=== PATIENT | female | born 1945 | race Caucasian/White ===

== ENCOUNTER → 2021-11-29 06:20 | Outpatient (ROUT) | payer OTHER, MEDICAID, SELFPAY ==
[2021-11-29 08:40] LABS: Add Manual Diff / Slide Review NO; Basophils Absolute Auto 0 /uL (0-100); Basophils Percent Auto 0.4 % (0-2); Eosinophils Absolute Auto 100 /uL (0-450); Eosinophils Percent Auto 1.5 % (2-4); Hemoglobin 11.5 g/dL (12.0-16.0); Lymphocytes Absolute Auto 1800 /uL (1100-4500); Mean Corpuscular HGB Conc 34.7 % (30-36); Mean Corpuscular Volume 89.5 fL (80-100); Monocytes Absolute Auto 500 /uL (0-900); Monocytes Percent Auto 6.9 % (3-14); Neutrophils Absolute Auto 4700 /uL (1500-7000); Neutrophils Percent Auto 66.2 % (50-75); Platelet Count 240 X10^3/uL (150-400); Red Blood Cell Count 3.69 X10^6/uL (4.0-5.2); Red Cell Distribution Width 14.4 % (11.6-14.8); White Blood Cell Count 7.1 X10^3/uL (4.5-11.0)
[2021-11-29 09:21] LABS: Alanine Aminotransferase 13 IU/L (<35); Albumin 3.8 g/dL (3.5-5.0); Albumin Globulin Ratio 1.2 (1.0-2.8); Alkaline Phosphatase 114 U/L (38-126); Aspartate Aminotransferase 18 IU/L (14-36); BUN Creatinine Ratio 17.6 (6-22); Bilirubin Total 0.3 mg/dL (0.2-1.3); Blood Urea Nitrogen 18 mg/dL (7-17); Calcium 9.2 mg/dL (8.4-10.2); Carbon Dioxide 31 mmol/L (22-32); Chloride 98 mmol/L (98-107); Estimated Glomerular Filt Rate 57 mL/min (>60); Globulin 3.3 g/dL (1.7-4.1); Glucose 82 mg/dL (80-110); HEMOLYSIS < 15 (0-50); Potassium 3.3 mmol/L (3.4-5.1); Sodium 138 mmol/L (137-145); Total Protein 7.1 g/dL (6.3-8.2)
[2021-11-29 09:41] LABS: Thyroid Stimulating Hormone 3.28 uIU/mL (0.47-4.68)
== END ==
PROVIDERS: Visit Provider Nurse Practitioner Family
DX: D64.9 Anemia, unspecified (principal)
CPT/HCPCS: 36415; 80053; 84443; 85025

== ENCOUNTER → 2022-01-10 06:09 | Outpatient (ROUT) | payer OTHER, MEDICAID, SELFPAY ==
[2022-01-10 08:07] LABS: BUN Creatinine Ratio 22.2 (6-22); Blood Urea Nitrogen 22 mg/dL (7-17); Calcium 8.8 mg/dL (8.4-10.2); Carbon Dioxide 31 mmol/L (22-32); Chloride 101 mmol/L (98-107); Estimated Glomerular Filt Rate 59 mL/min (>60); Glucose 92 mg/dL (80-110); HEMOLYSIS < 15 (0-50); Potassium 3.2 mmol/L (3.4-5.1); Sodium 137 mmol/L (137-145)
== END ==
PROVIDERS: Visit Provider Nurse Practitioner Family
DX: N18.9 Chronic kidney disease, unspecified (principal); E83.51 Hypocalcemia
CPT/HCPCS: 36415; 80048

== ENCOUNTER → 2022-01-17 06:13 | Outpatient (ROUT) | payer OTHER, MEDICAID, SELFPAY ==
[2022-01-17 08:56] LABS: BUN Creatinine Ratio 18.1 (6-22); Blood Urea Nitrogen 17 mg/dL (7-17); Calcium 9.4 mg/dL (8.4-10.2); Carbon Dioxide 26 mmol/L (22-32); Chloride 106 mmol/L (98-107); Estimated Glomerular Filt Rate > 60 mL/min (>60); Glucose 87 mg/dL (80-110); HEMOLYSIS < 15 (0-50); Potassium 3.9 mmol/L (3.4-5.1); Sodium 141 mmol/L (137-145)
== END ==
PROVIDERS: Visit Provider Nurse Practitioner Family
DX: E87.1 Hypo-osmolality and hyponatremia (principal)
CPT/HCPCS: 36415; 80048

== ENCOUNTER → 2022-03-07 06:26 | Outpatient (ROUT) | payer OTHER, MEDICAID, SELFPAY ==
[2022-03-07 08:23] LABS: BUN Creatinine Ratio 15.5 (6-22); Blood Urea Nitrogen 17 mg/dL (7-17); Calcium 9.1 mg/dL (8.4-10.2); Carbon Dioxide 31 mmol/L (22-32); Chloride 100 mmol/L (98-107); Estimated Glomerular Filt Rate 51 mL/min (>60); Glucose 91 mg/dL (80-110); HEMOLYSIS < 15 (0-50); Potassium 3.7 mmol/L (3.4-5.1); Sodium 138 mmol/L (137-145)
== END ==
PROVIDERS: Visit Provider Nurse Practitioner Family
DX: R60.9 Edema, unspecified (principal); Z79.899 Other long term (current) drug therapy
CPT/HCPCS: 36415; 80048

== ENCOUNTER 2022-04-07 14:52 | Observation (INO) | payer OTHER, MEDICAID, SELFPAY ==
[2022-04-07] VITALS (16 sets, daily range): BP systolic 145–216; BP diastolic 58–95; PULSE 68–112; RESP 12–26; TEMP 36.2–36.6; O2SAT 94–99; BMI 38.6
--- NOTE | 2022-04-07 15:08 | DI.RAD.S_ITS ---
PROCEDURE: XR CHEST 1V INDICATIONS: chest pain TECHNIQUE: One view of the chest was acquired. COMPARISON: None. FINDINGS: Surgical changes and devices: Cervical spine fixation hardware is seen. Lungs and pleura: On this semiupright portable chest examination, no large pneumothorax or large pleural effusions are seen. No focal infiltrates are seen. Low lung volumes are noted. This causes a crowded appearance to the lung markings and limits evaluation. Mediastinum: Mediastinal contours appear normal. Heart size is normal. Bones and chest wall: No suspicious bony lesions. Age-appropriate bony degenerative changes are seen. Overlying soft tissues appear unremarkable. IMPRESSION: Limited portable chest examination, without a significant cardiopulmonary abnormality identified. Postoperative and degenerative changes are seen. Dictated by: Manoj Watson M.D. on 04/07/2022 at 14:35 Approved by: Manoj Watson M.D. on 04/07/2022 at 14:36
[2022-04-07 15:32] LABS: Add Manual Diff / Slide Review NO; Basophils Absolute Auto 100 /uL (0-100); Basophils Percent Auto 0.8 % (0-2); Eosinophils Absolute Auto 100 /uL (0-450); Eosinophils Percent Auto 1.3 % (2-4); Hematocrit 38.1 % (36-46); Hemoglobin 12.4 g/dL (12.0-16.0); Lymphocytes Absolute Auto 1800 /uL (1100-4500); Mean Corpuscular HGB Conc 32.7 % (30-36); Mean Corpuscular Hemoglobin 29.6 PG (26-34); Mean Corpuscular Volume 90.5 fL (80-100); Monocytes Absolute Auto 400 /uL (0-900); Monocytes Percent Auto 6.2 % (3-14); Neutrophils Absolute Auto 4700 /uL (1500-7000); Neutrophils Percent Auto 66.7 % (50-75); Platelet Count 289 X10^3/uL (150-400); Red Blood Cell Count 4.21 X10^6/uL (4.0-5.2); Red Cell Distribution Width 14.8 % (11.6-14.8)
[2022-04-07 15:39] LABS: Prothrombin Time 11.7 SECONDS (10.1-12.7)
[2022-04-07 15:42] LABS: PTT Partial Thromboplastin Tim 54 SECONDS (26-36)
[2022-04-07 15:47] LABS: Alanine Aminotransferase 21 IU/L (<35); Albumin 4.4 g/dL (3.5-5.0); Albumin Globulin Ratio 1.2 (1.0-2.8); Alkaline Phosphatase 155 U/L (38-126); Aspartate Aminotransferase 23 IU/L (14-36); BUN Creatinine Ratio 13.3 (6-22); Bilirubin Total 0.2 mg/dL (0.2-1.3); Blood Urea Nitrogen 16 mg/dL (7-17); COVID19 -Nasal RAPID Negative (Negative); Calcium 9.5 mg/dL (8.4-10.2); Carbon Dioxide 31 mmol/L (22-32); Chloride 102 mmol/L (98-107); Creatine Kinase 143 U/L (30-135); Estimated Glomerular Filt Rate 46 mL/min (>60); Globulin 3.8 g/dL (1.7-4.1); Glucose 103 mg/dL (80-110); Lipase 98 U/L (23-300); Magnesium 2.2 mg/dL (1.6-2.3); Potassium 3.9 mmol/L (3.4-5.1); Sodium 141 mmol/L (137-145); Total Protein 8.2 g/dL (6.3-8.2)
--- NOTE | 2022-04-07 15:59 | ED_ITS ---
HPI - Chest Pain <Rosalba Brown DO - Last Filed: 04/08/22 07:09> General Chief Complaint: Chest Pain Stated Complaint: Chest pain, high blood pressure x2 days Time Seen by Provider: 04/07/22 15:16 Source: patient Mode of arrival: Wheelchair Limitations: no limitations History of Present Illness HPI narrative: Patient is a 77-year-old female who resides at [facility] who has chronic ongoing back pain hypertension hypothyroid hyperlipidemia presenting today with chest discomfort. She says it started 2 days ago when she was walking in the grocery store. She felt it in the center of her chest as a dull ache radiating to her left arm which resolved with rest. Lasting for roughly 10-15 minutes she was short of breath with exertion at that time as well. Today she was in the bathroom she got up and went to go change her pants when she again had some chest discomfort radiating to the left. No shortness of breath today. No sweating no nausea or vomiting no numbness tingling or weakness. No cough. Related Data Home Medications Medication Instructions Recorded Confirmed amitriptyline 50 mg tablet 50 mg PO BEDTIME ##0 12/19/16 04/07/22 baclofen 10 mg tablet 10 mg PO BEDTIME muscle spasm ##0 12/19/16 04/07/22 acetaminophen 500 mg tablet 500 mg 3XD 04/07/22 04/07/22 ascorbic acid (vitamin C) 500 mg 500 mg PO DAILY 04/07/22 04/07/22 tablet (Vitamin C) atorvastatin 40 mg tablet 40 mg PO DAILY 04/07/22 04/07/22 [id number]-spbopuwzvdedp-afompgob 1 - 2 tab PO TID PRN headaches 04/07/22 04/07/22 50 mg-325 mg-40 mg tablet dicyclomine 10 mg capsule 10 mg PO TID GERD 04/07/22 04/07/22 docusate sodium 100 mg capsule 200 mg PO BID Constipation 04/07/22 04/07/22 furosemide 40 mg tablet 40 mg PO DAILY 04/07/22 04/07/22 levothyroxine 75 mcg tablet 75 mcg PO DAILY 04/07/22 04/07/22 lidocaine 4 % topical patch 1 patch topical DAILY 04/07/22 04/07/22 (Lidocaine Pain Relief) melatonin 5 mg tablet 5 mg PO BEDTIME PRN Insomnia 04/07/22 04/07/22 yemvyhov-oeb-jgujw acid 0.4 1 tab PO DAILY 04/07/22 04/07/22 mg-lycopene 300 mcg-lutein 250 mcg tablet (CertaVite Senior) pantoprazole 40 mg tablet,delayed 40 mg PO DAILY GERD 04/07/22 04/07/22 release polyethylene glycol 3350 17 17 g PO DAILY constipation 04/07/22 04/07/22 gram/dose oral powder (Gavilax) potassium chloride 20 mEq 20 meq PO DAILY 04/07/22 04/07/22 tablet,extended release(part/cryst) pregabalin 100 mg capsule 100 mg PO TID pain management 04/07/22 04/07/22 zonisamide 100 mg capsule 100 mg PO DAILY 04/07/22 04/07/22 Allergies Allergy/AdvReac Type Severity Reaction Status Date / Time Penicillins [PENICILLINS] Allergy Mild Unverified 06/19/17 12:48 prednisone [PREDNISONE] Allergy Mild Unverified 06/19/17 12:48 Review of Systems <Rosalba Brown DO - Last Filed: 04/08/22 07:09> Review of Systems ROS Unobtainable: All systems reviewed & are unremarkable except as noted in HPI and below Patient History <Rosalba Brown DO - Last Filed: 04/08/22 07:09> Medical History (Updated 04/07/22 @ 22:52 by STANISLAV Babb) Carpal tunnel syndrome, bilateral Cataract Cerebral palsy Cervical spondylosis with myelopathy Chronic low back pain Chronic migraine without aura, intractable, without status migrainosus Chronic rhinitis Cluster headache syndrome Corneal dystrophy CPAP (continuous positive airway pressure) dependence Depression Disorder of peripheral nervous system Essential hypertension Fibromyalgia GERD (gastroesophageal reflux disease) Hyperlipidemia Hypothyroidism (acquired) Insomnia Obesity (BMI 30-39.9) Osteoarthritis Primary hypertension Restless leg syndrome Sjogren syndrome with keratoconjunctivitis Sleep apnea 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 Surgical History (Updated 04/07/22 @ 23:38 by STANISLAV Babb) History of carpal tunnel surgery History of fusion of cervical spine History of hysterectomy Family History (Updated 04/07/22 @ 23:39 by STANISLAV Babb) Mother Diabetes mellitus Father Emphysema lung Social History Smoking Status: Never smoker alcohol intake: never Smoking Status: Never smoker Substance Use Type: does not use Exam <Rosalba Brown DO - Last Filed: 04/08/22 07:09> Initial Vital Signs Initial Vital Signs: Vital Signs Temperature 97.1 F L 04/07/22 15:05 Pulse Rate 101 H 04/07/22 15:05 Respiratory Rate 18 04/07/22 15:05 Blood Pressure 145/75 H 04/07/22 15:05 Pulse Oximetry 97 04/07/22 15:05 Oxygen Delivery Method 04/07/22 15:05 GENERAL: Alert pleasant 77-year-old female and in no acute distress. HEENT: Head atraumatic,EOMI, pupils reactive, face symmetric, moist mucous membranes CARDIOVASCULAR: Regular rate and rhythm without murmurs, rubs or gallops. RESPIRATORY: Breath sounds equal bilaterally, no wheezes rales or rhonchi. ABDOMEN: Soft, nontender. Normoactive bowel sounds all 4 quadrants. No guarding or rebound. EXTREMITIES: Normal range of motion, no clubbing or edema. Neurovascularly intact NEUROLOGICAL: Alert and oriented x4.Normal gait and speech. SKIN: Warm, dry, no laceration, no petechiae, no rashes or lesions. <Vu Campos DO - Last Filed: 04/08/22 02:18> Initial Vital Signs Initial Vital Signs: Vital Signs Temperature 97.1 F L 04/07/22 15:05 Pulse Rate 101 H 04/07/22 15:05 Respiratory Rate 18 04/07/22 15:05 Blood Pressure 145/75 H 04/07/22 15:05 Pulse Oximetry 97 04/07/22 15:05 Oxygen Delivery Method 04/07/22 15:05 Scores <DO Bharat Morillo Last Filed: 04/08/22 07:09> HEART Score Heart Score history: Highly Suspicious Heart Score EKG: Normal Heart Score Age: > or = 65 years old Heart Score risk factors: 1-2 risk factors Heart Score troponin: < or = to normal limit Heart Score Total: 5 <DO Bharat Tillman Last Filed: 04/08/22 02:18> HEART Score Heart Score Total: 5 Course <Rosalba Brown DO - Last Filed: 04/08/22 07:09> Orders Ordered: Acetaminophen (Acetaminophen 325 Mg Tablet) 650 mg PO Q6H PRN PRN Reason: Fever/Mild Pain (1-3) Acetaminophen/Butalbital/Caffeine (Butalb/Apap/Caffeine 50/325/40 Tablet) 1 each PO TID PRN PRN Reason: headaches Last Admin: 04/07/22 23:52 Dose: 1 each Documented By: YESENIA Al Hydrox/Mg Hydrox/Simethicone (Mag Hydrox/Alum/Simeth 30 Ml Udc) 30 ml PO Q6HR PRN PRN Reason: Dyspepsia Aspirin (Aspirin Ec 81 Mg Tablet) 81 mg PO DAILY [facility] Atorvastatin Calcium (Atorvastatin 20 Mg Tablet) 40 mg PO DAILY [facility] Baclofen (Baclofen 10 Mg Tablet) 10 mg PO BEDTIME [facility] Calcium Carbonate (Calcium Carbonate 500 Mg Tab) 1,000 mg PO Q4HR PRN PRN Reason: Dyspepsia Diclofenac Sodium (Diclofenac 1% Gel 100 Gm) 1 applic TOP QID [facility] Last Admin: 04/08/22 00:06 Dose: Not Given Documented By: Dicyclomine HCl (Dicyclomine 10 Mg Capsule) 10 mg PO TID [facility] Last Admin: 04/07/22 23:48 Dose: 10 mg Documented By: YESENIA Docusate Sodium (Docusate 100 Mg Capsule) 200 mg PO BID [facility] Last Admin: 04/07/22 23:47 Dose: 200 mg Documented By: YESENIA Enoxaparin Sodium (Enoxaparin 40 Mg/0.4 Ml Syringe) 40 mg SUBCUT DAILY [facility] Lactated Ringer's (Lactated Ringers) 1,000 mls @ 60 mls/hr IV CONT [facility] Last Admin: 04/07/22 21:31 Dose: 60 mls/hr Documented By: YESENIA Labetalol HCl (Labetalol 20 Mg/4 Ml Syringe) 10 mg IV Q4HR PRN; Protocol PRN Reason: Hypertension Levothyroxine Sodium (Levothyroxine 88 Mcg Tablet) 88 mcg PO QACBREAK [facility] Lidocaine (Lidocaine Patch 1 Each Adh..Patch) 1 each TOP DAILY [facility] Lidocaine (Remove Lidocaine Patch) 1 each TOP BEDTIME [facility] Melatonin (Melatonin 3 Mg Tablet) 6 mg PO BEDTIME PRN PRN Reason: Insomnia Last Admin: 04/07/22 23:52 Dose: 6 mg Documented By: YESENIA Morphine Sulfate (Morphine 2 Mg/Ml Inj) 2 mg IV Q5MIN PRN PRN Reason: Chest Pain Naloxone HCl (Naloxone 0.4 Mg/Ml Vial) 0.2 mg IV Q2MIN PRN PRN Reason: Opiate Reversal Nitroglycerin (Nitroglycerin 0.4 Mg Sl Tab) 0.4 mg SL [id number] PRN PRN Reason: Chest Pain Ondansetron HCl (Ondansetron 4 Mg Odt) 4 mg PO Q8HR PRN PRN Reason: Nausea And Vomiting Pantoprazole Sodium (Pantoprazole Dr 40 Mg Tablet) 40 mg PO DAILY [facility] Polyethylene Glycol (Polyethylene Glycol 3350 17 Gm Powd.Pack) 17 gm PO DAILY [facility] Potassium Chloride (Potassium Chloride 20 Meq Tab) 20 meq PO DAILY [facility] Pregabalin (Pregabalin 50 Mg Capsule) 100 mg PO TID [facility] Sennosides (Sennosides 8.6 Mg Tablet) 17.2 mg PO BID [facility] Zonisamide (Zonisamide 100 Mg Capsule) 100 mg PO DAILY [facility] Discontinued Medications Amitriptyline HCl (Amitriptyline 25 Mg Tablet) 50 mg PO BEDTIME [facility] Last Admin: 04/07/22 23:52 Dose: 50 mg Documented By: YESENIA Aspirin (Aspirin 81 Mg Chew Tab) 324 mg PO NOW ONE Stop: 04/07/22 15:09 Last Admin: 04/07/22 16:22 Dose: 324 mg Documented By: BRAYAN Baclofen (Baclofen 10 Mg Tablet) 10 mg PO NOW ONE Stop: 04/07/22 22:13 Last Admin: 04/07/22 23:54 Dose: 10 mg Documented By: YESENIA Baclofen (Baclofen 10 Mg Tablet) 10 mg PO BEDTIME [facility] Levothyroxine Sodium (Levothyroxine 75 Mcg Tablet) 75 mcg PO DAILY [facility] Lidocaine (Lidocaine Patch 1 Each Adh..Patch) 1 each TOP DAILY [facility] Last Admin: 04/07/22 23:46 Dose: 1 each Documented By: YESENIA Pregabalin (Pregabalin 50 Mg Capsule) 100 mg PO TID [facility] Last Admin: 04/07/22 23:46 Dose: 100 mg Documented By: YESENIA Sennosides (Sennosides 8.6 Mg Tablet) 17.2 mg PO BEDTIME [facility] Last Admin: 04/07/22 21:29 Dose: 17.2 mg Documented By: YESENIA Vital Signs Vital signs: Vital Signs - 8 hr 04/07/22 18:30 04/07/22 18:36 04/07/22 18:36 Pulse Rate 69 73 Respiratory Rate 14 26 H Blood Pressure 216/94 H Pulse Oximetry 99 96 04/07/22 19:00 04/07/22 19:01 04/07/22 19:01 Pulse Rate 71 71 Respiratory Rate 17 15 Blood Pressure 154/72 H Pulse Oximetry 98 97 04/07/22 19:30 04/07/22 19:30 04/07/22 20:00 Pulse Rate 69 Respiratory Rate 15 Blood Pressure 155/74 H 154/85 H Pulse Oximetry 97 04/07/22 20:00 Pulse Rate 68 Respiratory Rate 17 Blood Pressure Pulse Oximetry 99 <Vu Campos DO - Last Filed: 04/08/22 02:18> Orders Ordered: Acetaminophen (Acetaminophen 325 Mg Tablet) 650 mg PO Q6H PRN PRN Reason: Fever/Mild Pain (1-3) Acetaminophen/Butalbital/Caffeine (Butalb/Apap/Caffeine 50/325/40 Tablet) 1 each PO TID PRN PRN Reason: headaches Last Admin: 04/07/22 23:52 Dose: 1 each Documented By: YESENIA Al Hydrox/Mg Hydrox/Simethicone (Mag Hydrox/Alum/Simeth 30 Ml Udc) 30 ml PO Q6HR PRN PRN Reason: Dyspepsia Aspirin (Aspirin Ec 81 Mg Tablet) 81 mg PO DAILY [facility] Atorvastatin Calcium (Atorvastatin 20 Mg Tablet) 40 mg PO DAILY [facility] Baclofen (Baclofen 10 Mg Tablet) 10 mg PO BEDTIME [facility] Calcium Carbonate (Calcium Carbonate 500 Mg Tab) 1,000 mg PO Q4HR PRN PRN Reason: Dyspepsia Diclofenac Sodium (Diclofenac 1% Gel 100 Gm) 1 applic TOP QID [facility] Last Admin: 04/08/22 00:06 Dose: Not Given Documented By: Dicyclomine HCl (Dicyclomine 10 Mg Capsule) 10 mg PO TID [facility] Last Admin: 04/07/22 23:48 Dose: 10 mg Documented By: YESENIA Docusate Sodium (Docusate 100 Mg Capsule) 200 mg PO BID [facility] Last Admin: 04/07/22 23:47 Dose: 200 mg Documented By: YESENIA Enoxaparin Sodium (Enoxaparin 40 Mg/0.4 Ml Syringe) 40 mg SUBCUT DAILY [facility] Lactated Ringer's (Lactated Ringers) 1,000 mls @ 60 mls/hr IV CONT [facility] Last Admin: 04/07/22 21:31 Dose: 60 mls/hr Documented By: YESENIA Labetalol HCl (Labetalol 20 Mg/4 Ml Syringe) 10 mg IV Q4HR PRN; Protocol PRN Reason: Hypertension Levothyroxine Sodium (Levothyroxine 88 Mcg Tablet) 88 mcg PO QACBREAK [facility] Lidocaine (Lidocaine Patch 1 Each Adh..Patch) 1 each TOP DAILY [facility] Lidocaine (Remove Lidocaine Patch) 1 each TOP BEDTIME [facility] Melatonin (Melatonin 3 Mg Tablet) 6 mg PO BEDTIME PRN PRN Reason: Insomnia Last Admin: 04/07/22 23:52 Dose: 6 mg Documented By: YESENIA Morphine Sulfate (Morphine 2 Mg/Ml Inj) 2 mg IV Q5MIN PRN PRN Reason: Chest Pain Naloxone HCl (Naloxone 0.4 Mg/Ml Vial) 0.2 mg IV Q2MIN PRN PRN Reason: Opiate Reversal Nitroglycerin (Nitroglycerin 0.4 Mg Sl Tab) 0.4 mg SL [id number] PRN PRN Reason: Chest Pain Ondansetron HCl (Ondansetron 4 Mg Odt) 4 mg PO Q8HR PRN PRN Reason: Nausea And Vomiting Pantoprazole Sodium (Pantoprazole Dr 40 Mg Tablet) 40 mg PO DAILY [facility] Polyethylene Glycol (Polyethylene Glycol 3350 17 Gm Powd.Pack) 17 gm PO DAILY [facility] Potassium Chloride (Potassium Chloride 20 Meq Tab) 20 meq PO DAILY [facility] Pregabalin (Pregabalin 50 Mg Capsule) 100 mg PO TID [facility] Sennosides (Sennosides 8.6 Mg Tablet) 17.2 mg PO BID [facility] Zonisamide (Zonisamide 100 Mg Capsule) 100 mg PO DAILY [facility] Discontinued Medications Amitriptyline HCl (Amitriptyline 25 Mg Tablet) 50 mg PO BEDTIME [facility] Last Admin: 04/07/22 23:52 Dose: 50 mg Documented By: YESENIA Aspirin (Aspirin 81 Mg Chew Tab) 324 mg PO NOW ONE Stop: 04/07/22 15:09 Last Admin: 04/07/22 16:22 Dose: 324 mg Documented By: BRAYAN Baclofen (Baclofen 10 Mg Tablet) 10 mg PO NOW ONE Stop: 04/07/22 22:13 Last Admin: 04/07/22 23:54 Dose: 10 mg Documented By: YESENIA Baclofen (Baclofen 10 Mg Tablet) 10 mg PO BEDTIME [facility] Levothyroxine Sodium (Levothyroxine 75 Mcg Tablet) 75 mcg PO DAILY [facility] Lidocaine (Lidocaine Patch 1 Each Adh..Patch) 1 each TOP DAILY [facility] Last Admin: 04/07/22 23:46 Dose: 1 each Documented By: YESENIA Pregabalin (Pregabalin 50 Mg Capsule) 100 mg PO TID [facility] Last Admin: 04/07/22 23:46 Dose: 100 mg Documented By: YESENIA Sennosides (Sennosides 8.6 Mg Tablet) 17.2 mg PO BEDTIME [facility] Last Admin: 04/07/22 21:29 Dose: 17.2 mg Documented By: YESENIA Vital Signs Vital signs: Vital Signs - 8 hr 04/07/22 18:30 04/07/22 18:36 04/07/22 18:36 Pulse Rate 69 73 Respiratory Rate 14 26 H Blood Pressure 216/94 H Pulse Oximetry 99 96 04/07/22 19:00 04/07/22 19:01 04/07/22 19:01 Pulse Rate 71 71 Respiratory Rate 17 15 Blood Pressure 154/72 H Pulse Oximetry 98 97 04/07/22 19:30 04/07/22 19:30 04/07/22 20:00 Pulse Rate 69 Respiratory Rate 15 Blood Pressure 155/74 H 154/85 H Pulse Oximetry 97 04/07/22 20:00 Pulse Rate 68 Respiratory Rate 17 Blood Pressure Pulse Oximetry 99 MDM - Chest Pain <Rosalba Brown, - Last Filed: 04/08/22 07:09> Lab Data 04/07/22 15:15 04/07/22 15:15 Labs: Lab Results 04/07/22 04/07/22 04/07/22 Range/Units 15:15 15:15 15:15 WBC 7.0 (4.5-11.0) X10^3/uL RBC 4.21 (4.0-5.2) X10^6/uL Hgb 12.4 (12.0-16.0) g/dL Hct 38.1 (36-46) % MCV 90.5 (80-100) fL MCH 29.6 (26-34) PG MCHC 32.7 (30-36) % RDW 14.8 (11.6-14.8) % Plt Count 289 (150-400) X10^3/uL Neut % (Auto) 66.7 (50-75) % Lymph % (Auto) 25.0 (25-40) % Crosby % (Auto) 6.2 (3-14) % Eos % (Auto) 1.3 L (2-4) % Baso % (Auto) 0.8 (0-2) % Neut # (Auto) 4700 (6077-2738) /uL Lymph # (Auto) 1800 (1024-3922) /uL Crosby # (Auto) 400 (0-900) /uL Eos # (Auto) 100 (0-450) /uL Baso # (Auto) 100 (0-100) /uL PT 11.7 (10.1-12.7) SECONDS INR 1.0 (0.9-1.3) APTT 54 H (26-36) SECONDS Sodium 141 (137-145) mmol/L Potassium 3.9 (3.4-5.1) mmol/L Chloride 102 (98-107) mmol/L Carbon Dioxide 31 (22-32) mmol/L BUN 16 (7-17) mg/dL Creatinine 1.20 H (0.52-1.04) mg/dL Estimated GFR 46 L (>60) mL/min BUN/Creatinine Ratio 13.3 (6-22) Glucose 103 (80-110) mg/dL Calcium 9.5 (8.4-10.2) mg/dL Magnesium 2.2 (1.6-2.3) mg/dL Total Bilirubin 0.2 (0.2-1.3) mg/dL AST 23 (14-36) IU/L ALT 21 (<35) IU/L Alkaline Phosphatase 155 H (38-126) U/L Total Creatine Kinase 143 H (30-135) U/L CK-MB (CK-2) 0.95 (<2.37) ng/mL CK-MB (CK-2) Rel Index 0.7 L (1.5-5.0) % Troponin I 0.016 (0.01-0.034) ng/mL NT-Pro-B Natriuret Pep (<450) pg/mL Total Protein 8.2 (6.3-8.2) g/dL Albumin 4.4 (3.5-5.0) g/dL Globulin 3.8 (1.7-4.1) g/dL Albumin/Globulin Ratio 1.2 (1.0-2.8) Triglycerides (35-150) mg/dL Cholesterol (140-199) mg/dL LDL Cholesterol, Calc (<100) mg/dL HDL Cholesterol (40-60) mg/dL Lipase 98 (23-300) U/L TSH (0.47-4.68) uIU/mL Free T4 (0.78-2.19) ng/dL SARS-CoV-2 (PCR) (Negative) 04/07/22 04/07/22 04/07/22 Range/Units 15:15 15:15 17:15 WBC (4.5-11.0) X10^3/uL RBC (4.0-5.2) X10^6/uL Hgb (12.0-16.0) g/dL Hct (36-46) % MCV (80-100) fL MCH (26-34) PG MCHC (30-36) % RDW (11.6-14.8) % Plt Count (150-400) X10^3/uL Neut % (Auto) (50-75) % Lymph % (Auto) (25-40) % Crosby % (Auto) (3-14) % Eos % (Auto) (2-4) % Baso % (Auto) (0-2) % Neut # (Auto) (0902-3941) /uL Lymph # (Auto) (4333-7427) /uL Crosby # (Auto) (0-900) /uL Eos # (Auto) (0-450) /uL Baso # (Auto) (0-100) /uL PT (10.1-12.7) SECONDS INR (0.9-1.3) APTT (26-36) SECONDS Sodium (137-145) mmol/L Potassium (3.4-5.1) mmol/L Chloride (98-107) mmol/L Carbon Dioxide (22-32) mmol/L BUN (7-17) mg/dL Creatinine (0.52-1.04) mg/dL Estimated GFR (>60) mL/min BUN/Creatinine Ratio (6-22) Glucose (80-110) mg/dL Calcium (8.4-10.2) mg/dL Magnesium (1.6-2.3) mg/dL Total Bilirubin (0.2-1.3) mg/dL AST (14-36) IU/L ALT (<35) IU/L Alkaline Phosphatase (38-126) U/L Total Creatine Kinase (30-135) U/L CK-MB (CK-2) (<2.37) ng/mL CK-MB (CK-2) Rel Index (1.5-5.0) % Troponin I 0.040 H (0.01-0.034) ng/mL NT-Pro-B Natriuret Pep (<450) pg/mL Total Protein (6.3-8.2) g/dL Albumin (3.5-5.0) g/dL Globulin (1.7-4.1) g/dL Albumin/Globulin Ratio (1.0-2.8) Triglycerides (35-150) mg/dL Cholesterol (140-199) mg/dL LDL Cholesterol, Calc (<100) mg/dL HDL Cholesterol (40-60) mg/dL Lipase (23-300) U/L TSH 7.00 H (0.47-4.68) uIU/mL Free T4 0.85 (0.78-2.19) ng/dL SARS-CoV-2 (PCR) Negative (Negative) 04/07/22 04/07/22 04/07/22 Range/Units 19:15 19:15 19:15 WBC (4.5-11.0) X10^3/uL RBC (4.0-5.2) X10^6/uL Hgb (12.0-16.0) g/dL Hct (36-46) % MCV (80-100) fL MCH (26-34) PG MCHC (30-36) % RDW (11.6-14.8) % Plt Count (150-400) X10^3/uL Neut % (Auto) (50-75) % Lymph % (Auto) (25-40) % Crosby % (Auto) (3-14) % Eos % (Auto) (2-4) % Baso % (Auto) (0-2) % Neut # (Auto) (7916-1227) /uL Lymph # (Auto) (7912-1922) /uL Crosby # (Auto) (0-900) /uL Eos # (Auto) (0-450) /uL Baso # (Auto) (0-100) /uL PT (10.1-12.7) SECONDS INR (0.9-1.3) APTT (26-36) SECONDS Sodium (137-145) mmol/L Potassium (3.4-5.1) mmol/L Chloride (98-107) mmol/L Carbon Dioxide (22-32) mmol/L BUN (7-17) mg/dL Creatinine (0.52-1.04) mg/dL Estimated GFR (>60) mL/min BUN/Creatinine Ratio (6-22) Glucose (80-110) mg/dL Calcium (8.4-10.2) mg/dL Magnesium (1.6-2.3) mg/dL Total Bilirubin (0.2-1.3) mg/dL AST (14-36) IU/L ALT (<35) IU/L Alkaline Phosphatase (38-126) U/L Total Creatine Kinase (30-135) U/L CK-MB (CK-2) (<2.37) ng/mL CK-MB (CK-2) Rel Index (1.5-5.0) % Troponin I 0.046 H (0.01-0.034) ng/mL NT-Pro-B Natriuret Pep 64 (<450) pg/mL Total Protein (6.3-8.2) g/dL Albumin (3.5-5.0) g/dL Globulin (1.7-4.1) g/dL Albumin/Globulin Ratio (1.0-2.8) Triglycerides 184 H (35-150) mg/dL Cholesterol 169 (140-199) mg/dL LDL Cholesterol, Calc 84 (<100) mg/dL HDL Cholesterol 48 (40-60) mg/dL Lipase (23-300) U/L TSH (0.47-4.68) uIU/mL Free T4 (0.78-2.19) ng/dL SARS-CoV-2 (PCR) (Negative) Imaging Data Chest x-ray: Radiologist's Impression: nt: DavidFallon peterson MR#: [id number] : 1945 Acct:[id number] Age/Sex: 77 / F Date of Service: 04/07/22 Loc: ED Accession Number: [id number] ?? Procedure: XR chest 1V Ordering Provider: Rosalba Brown D.O. PROCEDURE:? XR CHEST 1V ? INDICATIONS:? chest pain ? TECHNIQUE:? One view of the chest was acquired.? ? COMPARISON:? None. ? FINDINGS:? ? Surgical changes and devices:? Cervical spine fixation hardware is seen. ? Lungs and pleura:? On this semiupright portable chest examination, no large pneumothorax or large pleural effusions are seen.? No focal infiltrates are seen.? Low lung volumes are noted. This causes a crowded appearance to the lung markings and limits evaluation.? ? Mediastinum:? Mediastinal contours appear normal.? Heart size is normal.? ? Bones and chest wall:? No suspicious bony lesions.? Age-appropriate bony degenerative changes are seen. ? Overlying soft tissues appear unremarkable.? IMPRESSION:? ? Limited portable chest examination, without a significant cardiopulmonary abnormality identified.? ? Postoperative and degenerative changes are seen.? ? Dictated by: Manoj Watson M.D. on 04/07/2022 at 14:35 ? ? Approved by: Manoj Watson M.D. on 04/07/2022 at 14:36 ? ECG Data Interpretation: Normal sinus rhythm rate 83 MO interval 188 QRS [address] changes no T- wave inversions low voltage noted mild artifact MDM Narrative Medical decision making narrative: Patient is a 77-year-old female with history of hypertension I believe ischemia concerning today for chest discomfort worsening with exertion resolve with rest. She has a rising troponin the 2nd troponin 0.04 without EKG changes. 3rd troponin is now pending. Patient is signed over to Dr. Campos for further management <Vu Campos, DO - Last Filed: 04/08/22 02:18> Lab Data Labs: Lab Results 04/07/22 04/07/22 04/07/22 Range/Units 15:15 15:15 15:15 WBC 7.0 (4.5-11.0) X10^3/uL RBC 4.21 (4.0-5.2) X10^6/uL Hgb 12.4 (12.0-16.0) g/dL Hct 38.1 (36-46) % MCV 90.5 (80-100) fL MCH 29.6 (26-34) PG MCHC 32.7 (30-36) % RDW 14.8 (11.6-14.8) % Plt Count 289 (150-400) X10^3/uL Neut % (Auto) 66.7 (50-75) % Lymph % (Auto) 25.0 (25-40) % Crosby % (Auto) 6.2 (3-14) % Eos % (Auto) 1.3 L (2-4) % Baso % (Auto) 0.8 (0-2) % Neut # (Auto) 4700 (9269-1270) /uL Lymph # (Auto) 1800 (9789-0763) /uL Crosby # (Auto) 400 (0-900) /uL Eos # (Auto) 100 (0-450) /uL Baso # (Auto) 100 (0-100) /uL PT 11.7 (10.1-12.7) SECONDS INR 1.0 (0.9-1.3) APTT 54 H (26-36) SECONDS Sodium 141 (137-145) mmol/L Potassium 3.9 (3.4-5.1) mmol/L Chloride 102 (98-107) mmol/L Carbon Dioxide 31 (22-32) mmol/L BUN 16 (7-17) mg/dL Creatinine 1.20 H (0.52-1.04) mg/dL Estimated GFR 46 L (>60) mL/min BUN/Creatinine Ratio 13.3 (6-22) Glucose 103 (80-110) mg/dL Calcium 9.5 (8.4-10.2) mg/dL Magnesium 2.2 (1.6-2.3) mg/dL Total Bilirubin 0.2 (0.2-1.3) mg/dL AST 23 (14-36) IU/L ALT 21 (<35) IU/L Alkaline Phosphatase 155 H (38-126) U/L Total Creatine Kinase 143 H (30-135) U/L CK-MB (CK-2) 0.95 (<2.37) ng/mL CK-MB (CK-2) Rel Index 0.7 L (1.5-5.0) % Troponin I 0.016 (0.01-0.034) ng/mL NT-Pro-B Natriuret Pep (<450) pg/mL Total Protein 8.2 (6.3-8.2) g/dL Albumin 4.4 (3.5-5.0) g/dL Globulin 3.8 (1.7-4.1) g/dL Albumin/Globulin Ratio 1.2 (1.0-2.8) Triglycerides (35-150) mg/dL Cholesterol (140-199) mg/dL LDL Cholesterol, Calc (<100) mg/dL HDL Cholesterol (40-60) mg/dL Lipase 98 (23-300) U/L TSH (0.47-4.68) uIU/mL Free T4 (0.78-2.19) ng/dL SARS-CoV-2 (PCR) (Negative) 04/07/22 04/07/22 04/07/22 Range/Units 15:15 15:15 17:15 WBC (4.5-11.0) X10^3/uL RBC (4.0-5.2) X10^6/uL Hgb (12.0-16.0) g/dL Hct (36-46) % MCV (80-100) fL MCH (26-34) PG MCHC (30-36) % RDW (11.6-14.8) % Plt Count (150-400) X10^3/uL Neut % (Auto) (50-75) % Lymph % (Auto) (25-40) % Crosby % (Auto) (3-14) % Eos % (Auto) (2-4) % Baso % (Auto) (0-2) % Neut # (Auto) (0173-1394) /uL Lymph # (Auto) (6749-0899) /uL Crosby # (Auto) (0-900) /uL Eos # (Auto) (0-450) /uL Baso # (Auto) (0-100) /uL PT (10.1-12.7) SECONDS INR (0.9-1.3) APTT (26-36) SECONDS Sodium (137-145) mmol/L Potassium (3.4-5.1) mmol/L Chloride (98-107) mmol/L Carbon Dioxide (22-32) mmol/L BUN (7-17) mg/dL Creatinine (0.52-1.04) mg/dL Estimated GFR (>60) mL/min BUN/Creatinine Ratio (6-22) Glucose (80-110) mg/dL Calcium (8.4-10.2) mg/dL Magnesium (1.6-2.3) mg/dL Total Bilirubin (0.2-1.3) mg/dL AST (14-36) IU/L ALT (<35) IU/L Alkaline Phosphatase (38-126) U/L Total Creatine Kinase (30-135) U/L CK-MB (CK-2) (<2.37) ng/mL CK-MB (CK-2) Rel Index (1.5-5.0) % Troponin I 0.040 H (0.01-0.034) ng/mL NT-Pro-B Natriuret Pep (<450) pg/mL Total Protein (6.3-8.2) g/dL Albumin (3.5-5.0) g/dL Globulin (1.7-4.1) g/dL Albumin/Globulin Ratio (1.0-2.8) Triglycerides (35-150) mg/dL Cholesterol (140-199) mg/dL LDL Cholesterol, Calc (<100) mg/dL HDL Cholesterol (40-60) mg/dL Lipase (23-300) U/L TSH 7.00 H (0.47-4.68) uIU/mL Free T4 0.85 (0.78-2.19) ng/dL SARS-CoV-2 (PCR) Negative (Negative) 04/07/22 04/07/22 04/07/22 Range/Units 19:15 19:15 19:15 WBC (4.5-11.0) X10^3/uL RBC (4.0-5.2) X10^6/uL Hgb (12.0-16.0) g/dL Hct (36-46) % MCV (80-100) fL MCH (26-34) PG MCHC (30-36) % RDW (11.6-14.8) % Plt Count (150-400) X10^3/uL Neut % (Auto) (50-75) % Lymph % (Auto) (25-40) % [place] % (Auto) (3-14) % Eos % (Auto) (2-4) % Baso % (Auto) (0-2) % Neut # (Auto) (7287-0285) /uL Lymph # (Auto) (0557-4152) /uL [place] # (Auto) (0-900) /uL Eos # (Auto) (0-450) /uL Baso # (Auto) (0-100) /uL PT (10.1-12.7) SECONDS INR (0.9-1.3) APTT (26-36) SECONDS Sodium (137-145) mmol/L Potassium (3.4-5.1) mmol/L Chloride (98-107) mmol/L Carbon Dioxide (22-32) mmol/L BUN (7-17) mg/dL Creatinine (0.52-1.04) mg/dL Estimated GFR (>60) mL/min BUN/Creatinine Ratio (6-22) Glucose (80-110) mg/dL Calcium (8.4-10.2) mg/dL Magnesium (1.6-2.3) mg/dL Total Bilirubin (0.2-1.3) mg/dL AST (14-36) IU/L ALT (<35) IU/L Alkaline Phosphatase (38-126) U/L Total Creatine Kinase (30-135) U/L CK-MB (CK-2) (<2.37) ng/mL CK-MB (CK-2) Rel Index (1.5-5.0) % Troponin I 0.046 H (0.01-0.034) ng/mL NT-Pro-B Natriuret Pep 64 (<450) pg/mL Total Protein (6.3-8.2) g/dL Albumin (3.5-5.0) g/dL Globulin (1.7-4.1) g/dL Albumin/Globulin Ratio (1.0-2.8) Triglycerides 184 H (35-150) mg/dL Cholesterol 169 (140-199) mg/dL LDL Cholesterol, Calc 84 (<100) mg/dL HDL Cholesterol 48 (40-60) mg/dL Lipase (23-300) U/L TSH (0.47-4.68) uIU/mL Free T4 (0.78-2.19) ng/dL SARS-CoV-2 (PCR) (Negative) MDM Narrative Medical decision making narrative: Patient is a 77-year-old female with history of hypertension I believe ischemia concerning today for chest discomfort worsening with exertion resolve with rest. She has a rising troponin the 2nd troponin 0.04 without EKG changes. 3rd troponin is now pending. Patient is signed over to Dr. Campos for further management Dr campos: Received turned over. Reviewed patient's history and physical exam. Reviewed workup up to this point. Initial troponin negative. Second troponin greater than 99th percentile. Third troponin unchanged from 2nd. Given her presentation and her heart score will admit to the hospital for further risk stratification testing. Discussed the case with YENNY Warren the night hospitalist who will admit. I did discuss the need for admission with the patient who expressed understanding and agreement as well. Discharge Plan Departure Patient Disposition: Admitted As Inpatient Clinical Impression: Chest pain Admit Date/Time: 04/07/22 20:27 Admit Provider: Christa Warren
[2022-04-07 16:00] LABS: HEMOLYSIS < 15 (0-50); Troponin I 0.016 ng/mL (0.01-0.034)
[2022-04-07 16:02] LABS: CKMB % Relative Index 0.7 % (1.5-5.0); Creatine Kinase MB 0.95 ng/mL (<2.37)
[2022-04-07] MEDS: ASPIRIN 81 MG CHEW TAB 324 MG PO (16:22)
[2022-04-07 19:49] LABS: Troponin I 0.046 ng/mL (0.01-0.034)
--- NOTE | 2022-04-07 20:39 | DI.ECHO.S_ITS ---
[facility]---------+ [facility] +---------+ : : [address] : : : : [id number] : : : : Phone: [phone]+ Echocardiogram Report + + :Name: FRANCISCO KRISHNAN Study Date: 04/09/2022 Height: 63 in : :[facility] ReadingLocation: Weight: 218 lb: : Gender: Female BSA: 2.0 m2 : :: 1945 Age: 77 yrs : :Reason For Study: CHest pain, hypertension : :Ordering Physician: RIC, : :ANASTASIA Performed By: Asha Piedra : :Referring: ANASTASIA LARIOS : + + Interpretation Summary The ejection fraction is estimated to be 60-65%. Diastolic parameters suggest probable normal left ventricular diastolic function and normal filling pressures. The right ventricle is normal in size and function. Pulmonary artery pressures cannot be estimated because of the lack of a measurable TR jet velocity but the IVC suggests a CVP of around 3 mmHg. No significant valvular abnormality. Procedure: A two-dimensional transthoracic echocardiogram with color flow and Doppler was performed. The patient was in sinus rhythm with heart rates between 65-74 bpm during the exam. Left Ventricle: The left ventricle is normal in size and wall thickness. The ejection fraction is estimated to be 60-65%. Diastolic parameters suggest probable normal left ventricular diastolic function and normal filling pressures. Right Ventricle: The right ventricle is normal in size and function. Atria: The left atrial size is normal. Right atrial size is normal. There is no Doppler evidence for an interatrial shunt. Mitral Valve: The mitral valve leaflets are mildly calcified. The mitral valve leaflets appear mildly thickened, but open well. There is trace mitral regurgitation. Aortic Valve: The aortic valve is mildly calcified. There is no hemodynamically significant valvular aortic stenosis. There is mild aortic regurgitation. Tricuspid Valve: The tricuspid valve is normal in structure and function. There is a trace or physiologic amount of tricuspid regurgitation. Pulmonary artery pressures cannot be estimated because of the lack of a measurable TR jet velocity but the IVC suggests a CVP of around 3 mmHg. Pulmonic Valve: The pulmonic valve leaflets are thin and pliable; valve motion is normal. There is a trace or physiologic amount of pulmonic regurgitation. Great Vessels: The aortic root is normal size. The dimensions of the ascending aorta are normal. The IVC is of normal diameter and collapses greater than 50% with a sniff. This suggests a low right atrial pressure of 3 mm Hg. Pericardium/ Pleura There is no pericardial effusion. There is no pleural effusion. MMode/2D Measurements & Calculations LVIDd: 4.5 cm LVOT diam: 1.8 cm LVIDs: 2.6 cm Ao root diam: 3.4 cm FS: 42.2 % asc Aorta Diam: 3.4 cm EPSS: 0.20 cm IVSd: 0.70 cm LVPWd: 0.70 cm LV tellez. diameter/BSA (cm/m^2): 2.2 LV sys. diameter/BSA (cm/m^2): 1.3 LA dimension: 3.9 cm RA long axis: 4.7 cm LA A2 area: 19.4 cm2 RA area: 16.2 cm2 LA A4 area: 17.7 cm2 RA vol: 48.0 ml LA length (vol): 5.5 cm RA : 23.9 ml/m2 LA vol: 53.0 ml IVC diam: 1.9 cm LA vol index: 26.4 ml/m2 RVD1 (basal): 3.3 cm TAPSE_phl: 2.9 cm Doppler Measurements & Calculations Ao V2 max: 140.0 cm/sec LVOT Max Adiel: 117.0 cm/sec Ao V2 mean: 95.8 cm/sec LV V1 max P.5 mmHg Ao max P.0 mmHg LV V1 VTI: 29.5 cm Ao mean P.0 mmHg FRANSISCO(I,D): 2.5 cm2 Ao V2 VTI: 30.6 cm FRANSISCO(V,D): 2.1 cm2 sev ratio: 0.96 FRANSISCO indexed to BSA (cm^2/m^2): 1.2 MV E max adiel: 87.0 cm/sec PA V2 max: 93.8 cm/sec MV A max adiel: 101.0 cm/sec PA V2 mean: 64.1 cm/sec MV E/A: 0.86 PA mean P.0 mmHg Med Peak E' Adiel: 5.4 cm/sec E/E' med: 16.1 Lat Peak E' Adiel: 10.2 cm/sec E/E' lat: 8.5 E/e' average: 12.3 MV dec time: 0.21 sec MVA(VTI): 2.6 cm2 MV V2 mean: 64.2 cm/sec SV(LVOT): 75.1 ml MV mean P.0 mmHg MV V2 VTI: 28.4 cm AV VR_phl: 0.84 FRANSISCO(VTI)/BSA_phl: 1.2 Reading Physician:PM
--- NOTE | 2022-04-07 20:46 | PM.HP.1 ---
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 In ED asymptomatic, earlier CP episodes were without shortness of breath, sweating, nausea, vomiting, numbness, tingling or weakness, or cough. On admit patient denies shortness in breath, headache, changes in vision, difficulty swallowing, speech impairment, weakness, numbness, tingling, difficulty with ambulation, recent falls, head injury, LOC, fever, body aches, chills, cough, recent exposure to illness, abdominal pain, nausea, vomiting, urinary incontinence/retention, dysuria, frequency, urgency, hematuria, bowel changes, constipation, incontinence, melena, rashes, recent changes to medication, injury, or trauma. Patient noted that she was having some mid left sternal chest discomfort that was reproducible with palpation 2/10 non radiating , she suffers from chronic constipation and notes that she has 1-2 bowel movements per week last BM was yesterday morning, 03/29/2022 diagnosed with sinus infection and was placed on a Z-Moses. At the time of admit patient is stable asymptomatic. temp 97.1?, 155/74, 69, 15, 97% on room air. Patient's CBC is unremarkable, stable potassium 3.9, Mag 2.2. Creatinine 1.2 GFR 46-unknown if this is CKD versus DELORES. Alk-phos 155, CK 143, lipase WNL. Initial troponin 0.016, repeat 0.04, 0.046-heart score: 5, EKG NSR rate [address] or T-wave changes. Noted that we have no records labs, or diagnostics for comparison. Patient admitted for chest pain, risk stratification and rule out. Patient History Medical History (Updated 04/07/22 @ 22:52 by STANISLAV Babb) Carpal tunnel syndrome, bilateral Cataract Cerebral palsy Cervical spondylosis with myelopathy Chronic low back pain Chronic migraine without aura, intractable, without status migrainosus Chronic rhinitis Cluster headache syndrome Corneal dystrophy CPAP (continuous positive airway pressure) dependence Depression Disorder of peripheral nervous system Essential hypertension Fibromyalgia GERD (gastroesophageal reflux disease) Hyperlipidemia Hypothyroidism (acquired) Insomnia Obesity (BMI 30-39.9) Osteoarthritis Primary hypertension Restless leg syndrome Sjogren syndrome with keratoconjunctivitis Sleep apnea 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 Surgical History (Updated 04/07/22 @ 23:38 by STANISLAV Babb) History of carpal tunnel surgery History of fusion of cervical spine History of hysterectomy Family & Social History Family History (Updated 04/07/22 @ 23:39 by STANISLAV Babb) Mother Diabetes mellitus Father Emphysema lung Safety & Behavioral: Feels Safe in Current Yes, patient resides at [facility] Tobacco & Substance use: Smoking Status Never smoker Substance Use Type does not use No alcohol Meds Home Medications and Allergies Home Medications Medication Instructions Recorded Confirmed Type amitriptyline 50 mg tablet 50 mg PO BEDTIME ##0 12/19/16 04/07/22 History baclofen 10 mg tablet 10 mg PO BEDTIME muscle spasm ##0 12/19/16 04/07/22 History acetaminophen 500 mg tablet 500 mg 3XD 04/07/22 04/07/22 History ascorbic acid (vitamin C) 500 mg 500 mg PO DAILY 04/07/22 04/07/22 History tablet (Vitamin C) atorvastatin 40 mg tablet 40 mg PO DAILY 04/07/22 04/07/22 History yghjqsekoa-nepuvpptspytc-ndbeqtjc 1 - 2 tab PO TID PRN headaches 04/07/22 04/07/22 History 50 mg-325 mg-40 mg tablet dicyclomine 10 mg capsule 10 mg PO TID GERD 04/07/22 04/07/22 History docusate sodium 100 mg capsule 200 mg PO BID Constipation 04/07/22 04/07/22 History furosemide 40 mg tablet 40 mg PO DAILY 04/07/22 04/07/22 History levothyroxine 75 mcg tablet 75 mcg PO DAILY 04/07/22 04/07/22 History lidocaine 4 % topical patch 1 patch topical DAILY 04/07/22 04/07/22 History (Lidocaine Pain Relief) melatonin 5 mg tablet 5 mg PO BEDTIME PRN Insomnia 04/07/22 04/07/22 History wqeghpqc-axl-pvilb acid 0.4 1 tab PO DAILY 04/07/22 04/07/22 History mg-lycopene 300 mcg-lutein 250 mcg tablet (CertaVite Senior) pantoprazole 40 mg tablet,delayed 40 mg PO DAILY GERD 04/07/22 04/07/22 History release polyethylene glycol 3350 17 17 g PO DAILY constipation 04/07/22 04/07/22 History gram/dose oral powder (Gavilax) potassium chloride 20 mEq 20 meq PO DAILY 04/07/22 04/07/22 History tablet,extended release(part/cryst) pregabalin 100 mg capsule 100 mg PO TID pain management 04/07/22 04/07/22 History zonisamide 100 mg capsule 100 mg PO DAILY 04/07/22 04/07/22 History Allergies Allergy/AdvReac Type Severity Reaction Status Date / Time Penicillins [PENICILLINS] Allergy Mild Unverified 06/19/17 12:48 prednisone [PREDNISONE] Allergy Mild Unverified 06/19/17 12:48 Review of Systems Review of Systems Narrative: All 12 point systems reviewed with the patient and are negative except otherwise documented. Exam Vital Signs (past 8 hours): - 04/07/22 15:05 04/07/22 17:01 04/07/22 16:20 Temperature 97.1 F L Pulse Rate 101 H 73 75 Respiratory Rate 18 18 13 Blood Pressure 145/75 H 182/86 H Pulse Oximetry 97 97 97 Oxygen Delivery Method Room Air Room Air 04/07/22 16:30 04/07/22 17:00 04/07/22 17:00 Temperature Pulse Rate 112 H 71 Respiratory Rate 18 14 Blood Pressure 182/86 H Pulse Oximetry 99 Oxygen Delivery Method 04/07/22 17:30 04/07/22 17:30 04/07/22 18:00 Temperature Pulse Rate 68 Respiratory Rate 12 Blood Pressure 175/92 H 184/95 H Pulse Oximetry 99 Oxygen Delivery Method 04/07/22 18:00 04/07/22 18:30 04/07/22 18:36 Temperature Pulse Rate 69 69 73 Respiratory Rate 12 14 26 H Blood Pressure Pulse Oximetry 99 99 96 Oxygen Delivery Method 04/07/22 18:36 04/07/22 19:00 04/07/22 19:01 Temperature Pulse Rate 71 71 Respiratory Rate 17 15 Blood Pressure 216/94 H Pulse Oximetry 98 97 Oxygen Delivery Method 04/07/22 19:01 04/07/22 19:30 04/07/22 19:30 Temperature Pulse Rate 69 Respiratory Rate 15 Blood Pressure 154/72 H 155/74 H Pulse Oximetry 97 Oxygen Delivery Method 04/07/22 20:00 04/07/22 20:00 04/07/22 20:30 Temperature Pulse Rate 68 Respiratory Rate 17 Blood Pressure 154/85 H 161/82 H Pulse Oximetry 99 Oxygen Delivery Method 04/07/22 20:30 Temperature Pulse Rate 75 Respiratory Rate 20 Blood Pressure Pulse Oximetry 98 Oxygen Delivery Method Oxygen Delivery Method Room Air Narrative Exam Narrative: General: Patient is a well-developed, well-nourished female in moderate pain, but in no distress at this time. HEENT: Normocephalic, atraumatic, extraocular muscles intact, oral pharynx is clear and mucous membranes are dry. Neck is supple and symmetric, trachea is midline, no adenopathy, no thyroid enlargement, nontender, no masses palpated. Negative for JVD Chest: no nasal flaring, retractions, or tachypneic labored breathing. Patient's mid left sternal border pain is reproducible with palpation. Lungs: Auscultation of all lung mendoza are clear without adventitious sounds, wheezes, rhonchi, or rales. mild murmur Cardio: S1 & S2 with regular rate and rhythm without rubs, or gallops, no carotid bruit, no cardiac pulsations present. Abdomen: Firm, mild diffuse tenderness throughout, negative for organomegaly, or masses. Bowel sounds are hypoactive present in all 4 quadrants without guarding or rebound, no CVA tenderness. Musculoskeletal: Muscle strength and tone are equal within normal limits, no deformity, crepitus, effusions, cyanosis, clubbing present. Equal bilateral nonpitting 1 edema of lower ext- chronic. Full range of motion intact radial and pedal pulses are normal. Skin: Warm dry and intact without rashes, ulcerations or petechiae. Neuro: Alert and orientated x3, strength is +5/5 in all extremities, sensation to touch intact, no gross deficits noted of cranial nerves. Psych: Patient has a well-kept appearance, appropriate affect, mental status attitude thought context and judgment are appropriate for age. Objective Labs 04/07/22 15:15 04/07/22 15:15 Labs: Laboratory Results - last 24 hr 04/07/22 04/07/22 04/07/22 15:15 15:15 15:15 WBC 7.0 RBC 4.21 Hgb 12.4 Hct 38.1 MCV 90.5 MCH 29.6 MCHC 32.7 RDW 14.8 Plt Count 289 Neut % (Auto) 66.7 Lymph % (Auto) 25.0 [place] % (Auto) 6.2 Eos % (Auto) 1.3 L Baso % (Auto) 0.8 Neut # (Auto) 4700 Lymph # (Auto) 1800 [place] # (Auto) 400 Eos # (Auto) 100 Baso # (Auto) 100 PT 11.7 INR 1.0 APTT 54 H Sodium 141 Potassium 3.9 Chloride 102 Carbon Dioxide 31 BUN 16 Creatinine 1.20 H Estimated GFR 46 L BUN/Creatinine Ratio 13.3 Glucose 103 Calcium 9.5 Magnesium 2.2 Total Bilirubin 0.2 AST 23 ALT 21 Alkaline Phosphatase 155 H Total Creatine Kinase 143 H CK-MB (CK-2) 0.95 CK-MB (CK-2) Rel Index 0.7 L Troponin I 0.016 Total Protein 8.2 Albumin 4.4 Globulin 3.8 Albumin/Globulin Ratio 1.2 Lipase 98 SARS-CoV-2 (PCR) 04/07/22 04/07/22 04/07/22 15:15 17:15 19:15 WBC RBC Hgb Hct MCV MCH MCHC RDW Plt Count Neut % (Auto) Lymph % (Auto) [place] % (Auto) Eos % (Auto) Baso % (Auto) Neut # (Auto) Lymph # (Auto) [place] # (Auto) Eos # (Auto) Baso # (Auto) PT INR APTT Sodium Potassium Chloride Carbon Dioxide BUN Creatinine Estimated GFR BUN/Creatinine Ratio Glucose Calcium Magnesium Total Bilirubin AST ALT Alkaline Phosphatase Total Creatine Kinase CK-MB (CK-2) CK-MB (CK-2) Rel Index Troponin I 0.040 H 0.046 H Total Protein Albumin Globulin Albumin/Globulin Ratio Lipase SARS-CoV-2 (PCR) Negative Assessment & Plan Assessment & Plan narrative: Fallon Scott is a 77-year-old female who resides at [facility] assisted living with a medical history of cerebral palsy, cervical spondylosis with myelopathy, peripheral nervous system disorder, 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 Patient admitted for observational status chest pain rule out/ risk stratification, nuclear med stress and echo tomorrow. 1. Chest pain, exertional, radiating, acute, present on admission-resolved -admit under chest pain protocol, patient is hemodynamically stable and asymptomatic -ASA, BNP ordered -Initial troponin 0.016, repeat 0.04, 0.046 -potassium 3.9, Mag 2.2. -heart score: 5 -EKG NSR rate [address] or T-wave changes. -NM stress, echo tomorrow -PT/OT evaluation 2. Myocardial injury, acute, present on admission -as evidence by troponins greater than 99th percentile -patient is stable asymptomatic at this time. -Initial troponin 0.016, repeat 0.04, 0.046-will continue until downtrending -heart score: 5 -EKG NSR rate [address] or T-wave changes. -NM stress, echo tomorrow 3. Hypertension, primary, chronic, present on admission -continue losartan, potassium Hold lasix-over night as patient appears a bit dry. 4. Hyperlipidemia, acute, present on admission -lipids ordered -continue Lipitor 5. Hypothyroidism, acquired, chronic, present on admission -continue levothyroxine -order TSH/T4 6. GERD, chronic, present on admission -will hold patient's Dexilant will be replaced by hospital PPI 7. Migraines, chronic, intractable, without aura or status migrainous, chronic, present on admission -continue Fioricet 8. Cerebral palsy, , chronic, with cervical spondylosis with myelopathy, peripheral nervous system disorder, chronic, present on admission -continue amitriptyline, baclofen, Lyrica, Dicyclomine (upper GI motility), Zonisamide (anticonvulsant) 9. obesity,moderate, acute on chronic, present on admission -as evidence by BMI 38.6 -dietary consult ordered regarding nutritional education and information for dietary, lifestyle, exercise, and weight changes. -the patient is at much higher risk for medical and surgical complications due to obesity as it relates to chronic illnesses:, and acute illness. The patient's obesity increases the difficulty and complexity of medical and/or surgical interventions, management and increases the chances of poor outcome such as morbidity and mortality as well as impaired wound healing. 10. DELORES, acute, versus CKD, present on admission -Creatinine 1.2 GFR 46 -monitor renal function, requested medical records from [facility] for comparison -LR at 60 cc/HR gentle rehydration 11.Spinal stenosis, lumbar with neurogenic claudication, chronic, spondylosis, lumbar region, with mononeuropathy of bilateral lower extremities, low back pain, chronic, present on admission -continue amitriptyline, baclofen, Lyrica, lidocaine patch, Voltaren, Ice as needed 12. 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 I have utilized all available immediate resources to obtain, update, or review the patient's current medications. I confirmed that the patient's advanced care plan is present, Code status is documented and/or surrogate decision maker is listed in the patient's medical record. I have personally reviewed patient's chart notes from PCP, specialists, diagnostic imaging, and laboratory results. Time Spent With Patient Critical Care time: I spent a total of [] minutes of critical care time on this patient's care today; this time is exclusive of procedural time.
[2022-04-07 21:04] LABS: Cholesterol 169 mg/dL (140-199); HDL Cholesterol 48 mg/dL (40-60); LDL Cholesterol Calculated 84 mg/dL (<100); Triglycerides 184 mg/dL (35-150)
[2022-04-07 21:12] LABS: NT-proBNP (BNP-Adult 18+) 64 pg/mL (<450)
[2022-04-07] MEDS: SENNOSIDES 8.6 MG TABLET 17.2 MG PO (21:29)
[2022-04-07] MEDS: LACTATED RINGERS 1,000 ML 60 ML IV (21:31)
[2022-04-07 22:30] LABS: Free T4, Direct Thyroxine 0.85 ng/dL (0.78-2.19)
[2022-04-07] MEDS: LIDOCAINE PATCH 1 EACH ADH..PATCH TOP (23:46)
[2022-04-07] MEDS: PREGABALIN 50 MG CAPSULE 100 MG PO (23:46)
[2022-04-07] MEDS: DOCUSATE 100 MG CAPSULE 200 MG PO (23:47)
[2022-04-07] MEDS: DICYCLOMINE 10 MG CAPSULE PO (23:48)
[2022-04-07] MEDS: MELATONIN 3 MG TABLET 6 MG PO (23:52)
[2022-04-07] MEDS: BUTALB/APAP/CAFFEINE 50/325/40 TABLET 1 EACH PO (23:52)
[2022-04-07] MEDS: AMITRIPTYLINE 25 MG TABLET 50 MG PO (23:52)
[2022-04-07] MEDS: BACLOFEN 10 MG TABLET PO (23:54)
[2022-04-08 00:21] LABS: Appearance Urine UA Clear; Color Urine UA Yellow
[2022-04-08 00:22] LABS: Bilirubin Urine UA Negative (NEGATIVE); Glucose Urine UA NEGATIVE (Negative); Ketones Urine UA NEGATIVE (NEGATIVE); Nitrite Urine UA NEGATIVE (Negative); Occult Blood Urine UA NEGATIVE (Negative); Protein Urine UA Negative (Negative); Specific Gravity Urine UA 1.015 (1.000-1.035); Urobilinogen Urine UA 0.2 E.U./dL (0.2)
[2022-04-08 00:23] LABS: Bacteria Urine None Seen; Culture Indicated Urine Cult Not Indicated; Leukocyte Esterase Urine UA NEGATIVE (NEGATIVE); RBC Urine None Seen (0-5/HPF); WBC Urine None Seen (0-5/HPF)
[2022-04-08 03:49] VITALS: BP 132/51; PULSE 70; RESP 20; TEMP 36.4; O2SAT 94
[2022-04-08 06:52] LABS: Add Manual Diff / Slide Review NO; Basophils Absolute Auto 100 /uL (0-100); Basophils Percent Auto 0.9 % (0-2); Eosinophils Absolute Auto 200 /uL (0-450); Eosinophils Percent Auto 2.7 % (2-4); Hematocrit 31.3 % (36-46); Hemoglobin 10.5 g/dL (12.0-16.0); Lymphocytes Absolute Auto 1700 /uL (1100-4500); Lymphocytes Percent Auto 28.6 % (25-40); Mean Corpuscular HGB Conc 33.6 % (30-36); Mean Corpuscular Volume 89.3 fL (80-100); Monocytes Absolute Auto 500 /uL (0-900); Monocytes Percent Auto 8.9 % (3-14); Neutrophils Absolute Auto 3500 /uL (1500-7000); Neutrophils Percent Auto 58.9 % (50-75); Platelet Count 231 X10^3/uL (150-400); Red Blood Cell Count 3.51 X10^6/uL (4.0-5.2); Red Cell Distribution Width 15.1 % (11.6-14.8)
[2022-04-08 07:00] VITALS: BP 142/62; PULSE 65; RESP 21; TEMP 36.2; O2SAT 95
[2022-04-08 07:05] LABS: BUN Creatinine Ratio 17.8 (6-22); Blood Urea Nitrogen 18 mg/dL (7-17); Carbon Dioxide 28 mmol/L (22-32); Chloride 104 mmol/L (98-107); Estimated Glomerular Filt Rate 57 mL/min (>60); Glucose 89 mg/dL (80-110); HEMOLYSIS < 15 (0-50); Magnesium 2.1 mg/dL (1.6-2.3); Potassium 3.8 mmol/L (3.4-5.1); Sodium 138 mmol/L (137-145)
[2022-04-08 07:18] LABS: Troponin I 0.014 ng/mL (0.01-0.034)
--- NOTE | 2022-04-08 08:48 | PC.NURSE ---
pt up to br with [facility]ba marilee well, in chair waiting for md to make rounds. alert and oriented slow speech hx cerebral palsey
[2022-04-08] MEDS: DOCUSATE 100 MG CAPSULE 200 MG PO ×2 (09:00→20:35)
[2022-04-08] MEDS: ZONISAMIDE 100 MG CAPSULE PO (09:27)
[2022-04-08] MEDS: polyethylene glycoL 3350 17 GM POWD.PACK PO (09:27)
[2022-04-08] MEDS: SENNOSIDES 8.6 MG TABLET 17.2 MG PO ×2 (09:27→20:34)
[2022-04-08] MEDS: PREGABALIN 50 MG CAPSULE 100 MG PO ×3 (09:28→20:35)
[2022-04-08] MEDS: PANTOPRAZOLE DR 40 MG TABLET PO (09:28)
[2022-04-08] MEDS: ATORVASTATIN 20 MG TABLET 40 MG PO (09:28)
[2022-04-08] MEDS: ASPIRIN EC 81 MG TABLET PO (09:28)
[2022-04-08] MEDS: ENOXAPARIN 40 MG/0.4 ML SYRINGE SUBCUT (09:29)
[2022-04-08] MEDS: DICYCLOMINE 10 MG CAPSULE PO ×3 (09:29→20:36)
[2022-04-08] MEDS: LIDOCAINE PATCH 1 EACH ADH..PATCH TOP (09:30)
[2022-04-08] MEDS: POTASSIUM CHLORIDE 20 MEQ TAB PO (09:31)
--- NOTE | 2022-04-08 10:42 | CM.DANOTE ---
Initial Discharge Assessment: Case reviewed, met with patient. Introduced self and role. Payer: [facility] and Medicaid PCP: Dr Reddy (for [facility]) 77 yo A/O single female admitted yesterday from [facility] for several days of exertional chest pain, light-headedness and SOB. Increased troponins, PA. History includes cerebral paslsy, neuro disorder, cervical spondylithiasis, migraines, etc. She has lived at [facility] since November 2021. She is mostly independent in self care, needs assistance in med management, meals, etc. Patient uses 4 wheel walker and likes to ambulate for exercise she states. Plan: Patient desires to return to [facility] once medically cleared. Will possibly need an assessment from [facility] ([place]) before she goes. Check with him on Saturday. SHREYA Discharge Planning/Care Management CM Discharge Assessment Start: 04/08/22 10:40 Freq: Status: Active Protocol: Document 04/08/22 10:40 (Rec: 04/08/22 10:42 [id number]) Discharge Planning Assessment Assigned Gluer Machine Setup Operator Renee Huynh RN/BRITTANYP Advance Directives? No Advance Directives on File No History Provided By Patient Prior Living Arrangements Assisted Living Comment [facility] Household Members other Type of transporation used prior to Relies on Others admit Facility Name Admitted From: [facility] Living Willing to Return to Facility? Yes Independent with ADL's Yes: some light assistance: Meals, etc. Is patient alert and oriented? Yes Needs Assistance With Meal Prep,Managing Medications ,Home Chores / Shopping Caregiver for Another No DME Already Rented / Owned Bath Bench,FWW / Walker Barriers to Discharge No Discharge Plan Assisted Living Facility Whiteboard Updated in Patient Room with Yes name and ext. # of Gluer Machine Setup Operator Review Status In Process Next Review Type Continued Stay Review
[2022-04-08 11:00] VITALS: BP 136/64; PULSE 73; RESP 20; TEMP 36.1; O2SAT 94
[2022-04-08 11:21] LABS: Troponin I 0.014 ng/mL (0.01-0.034)
[2022-04-08] MEDS: FUROSEMIDE 40 MG TABLET PO (14:15)
[2022-04-08] MEDS: ACETAMINOPHEN 325 MG TABLET 650 MG PO ×2 (14:18→20:35)
[2022-04-08 15:00] VITALS: BP 143/68; PULSE 68; RESP 20; TEMP 36.3; O2SAT 95
--- NOTE | 2022-04-08 15:12 | PT.IIE ---
Current Diagnoses Unspecified injury of heart, unspecified with or without hemopericardium, initial encounter (04/07/22) Surgical History (Last Updated 04/07/22 @ 23:38 by STANISLAV Babb) History of carpal tunnel surgery History of fusion of cervical spine History of hysterectomy Medical History (Last Updated 04/07/22 @ 22:52 by STANISLAV Babb) Carpal tunnel syndrome, bilateral Cataract Cerebral palsy Cervical spondylosis with myelopathy Chronic low back pain Chronic migraine without aura, intractable, without status migrainosus Chronic rhinitis Cluster headache syndrome Corneal dystrophy CPAP (continuous positive airway pressure) dependence Depression Disorder of peripheral nervous system Essential hypertension Fibromyalgia GERD (gastroesophageal reflux disease) Hyperlipidemia Hypothyroidism (acquired) Insomnia Obesity (BMI 30-39.9) Osteoarthritis Primary hypertension Restless leg syndrome Sjogren syndrome with keratoconjunctivitis Sleep apnea 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 Physical Therapy Inpatient Evaluation/Re-Eval M1 PT/OT-IP Prior Functional Status Start: 04/08/22 09:35 Freq: NEEDED Status: Active Protocol: Document 04/08/22 15:12 AW (Rec: 04/08/22 17:04 AW [id number]) Medical Review Prior Functional Status Medical History Reviewed Yes Communication Pt is able to make her needs known. Mobility and Gait Used a 4WW to walk around [facility]. She used a wheelchair for longer distances. Activities of Daily Living and IADL's Pt states she needed help to don her compression socks and occasional assist with showers but otherwise was independent with ADL's. Meals are provided by [facility]. Prior Functional Level (Other details) Pt currently has [facility]. Social History Household Members other Living Arrangements Assisted Living Home Environment Standard Height Toilet,Walk in Shower Home Equipment Four Wheel Walker,Raised Toilet Seat w/Armrests,Hand Held Shower,Grab Bars Near Toilet,Grab Bars In Shower Additional Social History Comment Pt's bed is adjustable at the head. She has lived at [facility] since November. She has cerebral palsey and states she realized she needed extra help. M2 PT-IP Current Condition Start: 04/08/22 09:35 Freq: NEEDED Status: Active Protocol: Document 04/08/22 15:12 AW (Rec: 04/08/22 17:04 AW [id number]) Physical Therapy Current Condition Current Condition Evaluation Date 04/08/22 Treatment Diagnosis chest pain, impaired mobility and gait Onset Date 04/07/22 M3 PT-IP Subjective Start: 04/08/22 09:35 Freq: NEEDED Status: Active Protocol: Document 04/08/22 15:12 AW (Rec: 04/08/22 17:04 AW [id number]) Subjective Physical Therapy Visit Type Type Initial Evaluation Visit Start Time 14:52 Visit Stop Time 15:12 Total Visit Minutes 20 Physical Therapy Visit Comments Patient Comments Pt is willing to participate with PT Patient Goals Return to [facility] Therapy Pain Assessment Pain When Pain Assessed During Mobility Pain Present Pain Present Pain Reported Location Bilateral Lower Back Scale Used not quantified Pain Management Techniques Distraction,Modification of Treatment,Re-positioning M4 PT-IP Mobility and Gait Start: 04/08/22 09:35 Freq: NEEDED Status: Active Protocol: Document 04/08/22 15:12 AW (Rec: 04/08/22 17:04 AW [id number]) PT-Transfer Assessment Sit to and From Stand Sit to and from Stand Minimal Assistance,Use of Upper Extremities Equipment Transfer Assistive Device Gait Belt,Front Wheeled Walker Orthotic/Prosthetic Devices or Brace: No Transfers Transfer Destination Chair Transfer Technique ambulated with FWW Transfer Ability Level of Assist Standby Assistance,Use of Upper Extremities Comments Mobility Comments Pt was sitting up in the chair as PT arrived. VS were BP 126 /57 HR 73. She stood min A and used FWW to ambulate without LOB a total of 120 feet. She returned to the room and to the chair. She denied chest pain, SOB. VS were stable. Gait Assessment Gait Gait Assistance Required: Standby Assistance Distance (Feet) 120 Assistive Devices Assistive Device Gait Belt,Front Wheeled Walker Orthotic/Prosthetic Devices or Brace: No Gait Deviations General Gait Pattern Antalgic,Decreased Stride Length,Decreased Feet Clearance,Flexed Trunk,Step-to Gait Factors Limiting Gait Function Factors Limiting Gait Function Decreased Strength,Pain PT-Balance Assessment Sitting Balance and Reactions Static Sitting Balance Ability Normal Dynamic Sitting Balance Ability Good Standing Balance and Reactions Static Standing Balance Ability Good Dynamic Standing Balance Ability Good Device Used FWW M5 PT-IP Objective Assessments Start: 04/08/22 09:35 Freq: NEEDED Status: Active Protocol: Document 04/08/22 15:12 AW (Rec: 04/08/22 17:04 AW [id number]) Orientation Orientation/Cognition Level of Alertness Alert Orientation Name,Month,Year,Day of Week, Place,Situation Language Function Ability No Deficits Noted Safety Awareness Understands Safety Issues Memory Description No Deficits Noted Gross Range of Motion Lower Extremity ROM Assessment Within Functional Limits Strength Lower Extremity Strength Assessment Within Functional Limits Comments Strength Comments Grossly 4/5 to 4+/5 BLE Sensation Assessment Sensation Gross Sensation WNL M6 PT-IP Treatment Start: 04/08/22 09:35 Freq: NEEDED Status: Active Protocol: Document 04/08/22 15:12 AW (Rec: 04/08/22 17:04 AW [id number]) Physical Therapy Treatment Education Education Provided Safety M7 PT-IP Assessment and Plan Start: 04/08/22 09:35 Freq: NEEDED Status: Active Protocol: Document 04/08/22 15:12 AW (Rec: 04/08/22 17:04 AW [id number]) PT Summary Assessment and Plan Potential Status of Condition at Evaluation Stable Summary Impairments Pain,Strength,Balance,Bed Mobility,Transfers,Gait Assessment Summary Fallon is a 77 yo resident of [facility]. She is modified independent at baseline with use of 4WW for mobility. She gets some level of assist for ADL's. On assessment today, vital signs were WNL and stable. Pt was able to ambulate 120 feet with FWW SBA with no significant path deviation or loss of balance. Pt is likely at or near her functional baseline. She will be safe to return to [facility] once medically cleared. She states she had HH PT and OT prior to admission so will likely resume HH. No acute PT needs are identified. Frequency of Treatment Frequency Of Treatment Discharge Recommendations To Nursing Amount of Assist Needed Standby Assistance,1 Person Assist Discharge Recommendations PT Discharge Recommendations Home with Assistance,Home with 24/7 Assist Available,Home Health Transportation Needs at Discharge Private Vehicle
--- NOTE | 2022-04-08 16:14 | PM.PN.1 ---
Subjective Subjective Interval history: 77-year-old female with cerebral palsy, cervical spondylosis with myelopathy, peripheral nervous system disorder, lumbar spinal stenosis with neurogenic claudication, no neuropathy of the bilateral lower extremities, Sjogren's syndrome with migraines, chronic low back pain, obstructive sleep apnea on CPAP, hypertension, hyperlipidemia, hypothyroidism who was admitted last night with chest pain. Patient reports she has been on a diuretic. She reports she is had shortness of breath since before [place]. She would also had leg edema. She notes that her primary placed her on what sounds like furosemide which she took for a while without improvement. The dose was subsequently increased but then ultimately had to be discontinued secondary to development of hypokalemia. She then developed recurrent shortness of breath. She states she was placed back on the diuretic. As far as she knows she is not had neck cardiogram. She reports she developed chest tightness/discomfort several days ago when at the grocery store. It resolved with rest. She had recurrence yesterday when getting dressed. She states she has had some intermittent ?discomfort ? since admission. Exam Vital Signs (past 8 hours): - 04/08/22 11:00 Temperature 97.0 F L Pulse Rate 73 Respiratory Rate 20 Blood Pressure 136/64 Pulse Oximetry 94 Oxygen Flow Rate 0 Oxygen Delivery Method CPAP Oxygen Flow Rate 0 Narrative Exam Narrative: GEN: Pleasant elderly female, Alert and oriented x 3, NAD HEENT:NC, Face symmetric CHEST: Respiratory excursions symmetric, CTAB CV: RRR, no M/R/G ABD: Soft, obese, NT/ND, BT present in all 4 quadrants, body habitus limits exam EXTR: warm, well perfused, no C/C, moderate nonpitting edema bilaterally SKIN: warm and dry, no rash NEURO: Alert and oriented x 3, nonfocal Objective Labs 04/08/22 05:00 04/08/22 06:38 Labs: Laboratory Results - last 24 hr 04/07/22 04/07/22 04/07/22 15:15 17:15 19:15 WBC RBC Hgb Hct MCV MCH MCHC RDW Plt Count Neut % (Auto) Lymph % (Auto) [place] % (Auto) Eos % (Auto) Baso % (Auto) Neut # (Auto) Lymph # (Auto) [place] # (Auto) Eos # (Auto) Baso # (Auto) Sodium Potassium Chloride Carbon Dioxide BUN Creatinine Estimated GFR BUN/Creatinine Ratio Glucose Calcium Magnesium Troponin I 0.040 H 0.046 H NT-Pro-B Natriuret Pep Triglycerides Cholesterol LDL Cholesterol, Calc HDL Cholesterol TSH 7.00 H Free T4 0.85 Urine Color Urine Appearance Urine pH Ur Specific [place] Urine Protein Urine Glucose (UA) Urine Ketones Urine Occult Blood Urine Nitrate Urine Bilirubin Urine Urobilinogen Ur Leukocyte Esterase Urine RBC Urine WBC Urine Bacteria Ur Culture Indicated? 04/07/22 04/07/22 04/07/22 19:15 19:15 23:25 WBC RBC Hgb Hct MCV MCH MCHC RDW Plt Count Neut % (Auto) Lymph % (Auto) [place] % (Auto) Eos % (Auto) Baso % (Auto) Neut # (Auto) Lymph # (Auto) [place] # (Auto) Eos # (Auto) Baso # (Auto) Sodium Potassium Chloride Carbon Dioxide BUN Creatinine Estimated GFR BUN/Creatinine Ratio Glucose Calcium Magnesium Troponin I NT-Pro-B Natriuret Pep 64 Triglycerides 184 H Cholesterol 169 LDL Cholesterol, Calc 84 HDL Cholesterol 48 TSH Free T4 Urine Color Yellow Urine Appearance Clear Urine pH 8.0 Ur Specific [place] 1.015 Urine Protein Negative Urine Glucose (UA) Negative Urine Ketones Negative Urine Occult Blood Negative Urine Nitrate Negative Urine Bilirubin Negative Urine Urobilinogen 0.2 Ur Leukocyte Esterase Negative Urine RBC None seen Urine WBC None seen Urine Bacteria None seen Ur Culture Indicated? Cult not indicated 04/08/22 04/08/22 04/08/22 05:00 06:38 10:47 WBC 6.0 RBC 3.51 L Hgb 10.5 L Hct 31.3 L MCV 89.3 MCH 30.0 MCHC 33.6 RDW 15.1 H Plt Count 231 Neut % (Auto) 58.9 Lymph % (Auto) 28.6 [place] % (Auto) 8.9 Eos % (Auto) 2.7 Baso % (Auto) 0.9 Neut # (Auto) 3500 Lymph # (Auto) 1700 [place] # (Auto) 500 Eos # (Auto) 200 Baso # (Auto) 100 Sodium 138 Potassium 3.8 Chloride 104 Carbon Dioxide 28 BUN 18 H Creatinine 1.01 Estimated GFR 57 L BUN/Creatinine Ratio 17.8 Glucose 89 Calcium 9.0 Magnesium 2.1 Troponin I 0.014 0.014 NT-Pro-B Natriuret Pep Triglycerides Cholesterol LDL Cholesterol, Calc HDL Cholesterol TSH Free T4 Urine Color Urine Appearance Urine pH Ur Specific [place] Urine Protein Urine Glucose (UA) Urine Ketones Urine Occult Blood Urine Nitrate Urine Bilirubin Urine Urobilinogen Ur Leukocyte Esterase Urine RBC Urine WBC Urine Bacteria Ur Culture Indicated? [facility] Medical History (Updated 04/07/22 @ 22:52 by STANISLAV Babb) Carpal tunnel syndrome, bilateral Cataract Cerebral palsy Cervical spondylosis with myelopathy Chronic low back pain Chronic migraine without aura, intractable, without status migrainosus Chronic rhinitis Cluster headache syndrome Corneal dystrophy CPAP (continuous positive airway pressure) dependence Depression Disorder of peripheral nervous system Essential hypertension Fibromyalgia GERD (gastroesophageal reflux disease) Hyperlipidemia Hypothyroidism (acquired) Insomnia Obesity (BMI 30-39.9) Osteoarthritis Primary hypertension Restless leg syndrome Sjogren syndrome with keratoconjunctivitis Sleep apnea 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 Exertional chest pain Patient had mildly increased troponin. Initial troponin was 0.016, an increase to 0.04 and peaked at 0.046. It has since come down to 0.014. She has not had any chest pain since arrival to the emergency department. EKG was nonischemic. Suspect this is demand ischemia rather than NSTEMI. Plan is in place for an echocardiogram and a nuclear stress test tomorrow. 2. Shortness of breath/leg edema Patient reports recent prescription for diuretics starting prior to . She has not had an echocardiogram. This possible she has underlying undiagnosed congestive heart failure. Await echocardiogram results. Will saline lock her fluids and restart her home dose of furosemide. 3. Hypertension, primary, chronic, present on admission Continue losartan. Blood pressures were significantly elevated overnight. Now they are down to 136/64. Will monitor. 4. Hyperlipidemia Continue atorvastatin. Total cholesterol is 169, triglycerides 184, LDL 84, HDL 48. 5. Hypothyroidism, acquired, chronic continue levothyroxine. TSH is 7.00. Will order free T4. 6. GERD, chronic Patient is on Dexilant on an outpatient basis. Continue Protonix per formulary substitution. 7. Migraines, chronic, intractable, without aura or status migrainous, chronic, present on admission Denies symptoms currently. Continue Fioricet as needed 8. Cerebral palsy, , chronic, with cervical spondylosis with myelopathy, peripheral nervous system disorder, chronic, present on admission Continue amitriptyline, baclofen, Lyrica, Dicyclomine (upper GI motility), Zonisamide (anticonvulsant) 9.?Class 2 obesity Await dietitian consult. Patient is at risk for significant morbidity/mortality. It will be difficult for her to achieve weight reduction given her physical mobility limitations 10. DELORES, acute, versus CKD, present on admission Creatinine improved at 1.01. Suspect she has developed some mild CKD as a consequence of her diuretic therapy. Will monitor. Restarting furosemide as noted 11.Spinal stenosis, lumbar with neurogenic claudication, chronic, spondylosis, lumbar region, with mononeuropathy of bilateral lower extremities, low back pain, chronic, present on admission Continue amitriptyline, baclofen, Lyrica, lidocaine patch, Voltaren, Ice as needed 12. Chronic constipation, secondary to peripheral nervous system disorder, spinal stenosis of the lumbar with neurogenic claudication, chronic, present on admission Continue bowel regimen Code status DNR Surrogate decision maker: patient's sister Christina Higgins Prophylaxis Lovenox. Patient complains that SCDs are very uncomfortable Disposition Likely discharge back to [facility] tomorrow pending echo and nuclear stress test results. Time Spent With Patient Critical Care time: I spent a total of [] minutes of critical care time on this patient's care today; this time is exclusive of procedural time.
[2022-04-08 19:24] VITALS: BP 155/80; PULSE 74
[2022-04-08] MEDS: MORPHINE 2 MG/ML INJ IV (19:24)
[2022-04-08] MEDS: NITROGLYCERIN 0.4 MG SL TAB SL (19:24)
--- NOTE | 2022-04-08 19:37 | PC.NURSE ---
Pt complained of 4/10 chest pain on a numeric pain scale at approximately 1920. Patient was talking in full sentences, not diaphoretic with a bp of 155/80 and HR of 70. She was given one sub lingual Nitroglycerine and 2mg of IV morphine. EKG and labs were done. After 5 minutes patient reported that her chest pain was now 1/10 and she felt better. Pt's bp was 123/65 and HR 69 after chest pain was resolved.
[2022-04-08 19:50] LABS: Magnesium 2.2 mg/dL (1.6-2.3)
[2022-04-08 19:51] LABS: Alanine Aminotransferase 20 IU/L (<35); Albumin 4.2 g/dL (3.5-5.0); Albumin Globulin Ratio 1.2 (1.0-2.8); Alkaline Phosphatase 144 U/L (38-126); Aspartate Aminotransferase 24 IU/L (14-36); BUN Creatinine Ratio 17.5 (6-22); Bilirubin Total 0.2 mg/dL (0.2-1.3); Blood Urea Nitrogen 22 mg/dL (7-17); Calcium 9.2 mg/dL (8.4-10.2); Carbon Dioxide 30 mmol/L (22-32); Chloride 100 mmol/L (98-107); Estimated Glomerular Filt Rate 44 mL/min (>60); Globulin 3.5 g/dL (1.7-4.1); Glucose 107 mg/dL (80-110); HEMOLYSIS < 15 (0-50); Potassium 4.2 mmol/L (3.4-5.1); Sodium 140 mmol/L (137-145); Total Protein 7.7 g/dL (6.3-8.2)
[2022-04-08 20:00] VITALS: BP 155/80; PULSE 74; RESP 20; TEMP 36.6; O2SAT 98
[2022-04-08 20:02] LABS: Troponin I < 0.012 ng/mL (0.01-0.034)
[2022-04-08] MEDS: BACLOFEN 10 MG TABLET PO (20:34)
[2022-04-08] MEDS: MELATONIN 3 MG TABLET 6 MG PO (20:34)
[2022-04-09] VITALS: BP 129/84; PULSE 79; RESP 18; TEMP 36.2; O2SAT 95
[2022-04-09 04:11] VITALS: BP 126/52; PULSE 76; RESP 20; TEMP 36.3; O2SAT 95
[2022-04-09 06:23] LABS: Add Manual Diff / Slide Review NO; Basophils Absolute Auto 0 /uL (0-100); Basophils Percent Auto 0.4 % (0-2); Eosinophils Absolute Auto 100 /uL (0-450); Eosinophils Percent Auto 1.8 % (2-4); Hematocrit 31.7 % (36-46); Hemoglobin 10.6 g/dL (12.0-16.0); Lymphocytes Absolute Auto 2000 /uL (1100-4500); Lymphocytes Percent Auto 29.4 % (25-40); Mean Corpuscular HGB Conc 33.6 % (30-36); Mean Corpuscular Hemoglobin 29.9 PG (26-34); Mean Corpuscular Volume 89.1 fL (80-100); Monocytes Absolute Auto 600 /uL (0-900); Monocytes Percent Auto 8.6 % (3-14); Neutrophils Absolute Auto 4000 /uL (1500-7000); Neutrophils Percent Auto 59.8 % (50-75); Platelet Count 247 X10^3/uL (150-400); Red Blood Cell Count 3.56 X10^6/uL (4.0-5.2); Red Cell Distribution Width 15.2 % (11.6-14.8); White Blood Cell Count 6.6 X10^3/uL (4.5-11.0)
[2022-04-09 06:30] LABS: BUN Creatinine Ratio 19.8 (6-22); Blood Urea Nitrogen 24 mg/dL (7-17); Carbon Dioxide 28 mmol/L (22-32); Chloride 102 mmol/L (98-107); Estimated Glomerular Filt Rate 46 mL/min (>60); Glucose 88 mg/dL (80-110); HEMOLYSIS < 15 (0-50); Magnesium 2.1 mg/dL (1.6-2.3); Potassium 3.8 mmol/L (3.4-5.1); Sodium 139 mmol/L (137-145)
[2022-04-09] MEDS: LEVOTHYROXINE 88 MCG TABLET PO (06:50)
[2022-04-09 08:00] VITALS: BP 131/53; PULSE 61; RESP 17; TEMP 36.4; O2SAT 94
[2022-04-09] MEDS: ACETAMINOPHEN 325 MG TABLET 650 MG PO ×2 (08:56→15:32)
[2022-04-09] MEDS: ASPIRIN EC 81 MG TABLET PO (08:57)
[2022-04-09] MEDS: ATORVASTATIN 20 MG TABLET 40 MG PO (08:57)
[2022-04-09] MEDS: DICYCLOMINE 10 MG CAPSULE PO ×2 (08:58→15:33)
[2022-04-09] MEDS: DOCUSATE 100 MG CAPSULE 200 MG PO (08:58)
[2022-04-09] MEDS: FUROSEMIDE 40 MG TABLET PO (08:59)
[2022-04-09] MEDS: ENOXAPARIN 40 MG/0.4 ML SYRINGE SUBCUT (08:59)
[2022-04-09] MEDS: SENNOSIDES 8.6 MG TABLET 17.2 MG PO (09:00)
[2022-04-09] MEDS: POTASSIUM CHLORIDE 20 MEQ TAB PO (09:00)
[2022-04-09] MEDS: PANTOPRAZOLE DR 40 MG TABLET PO (09:00)
[2022-04-09] MEDS: PREGABALIN 50 MG CAPSULE 100 MG PO ×2 (09:00→15:33)
[2022-04-09] MEDS: ZONISAMIDE 100 MG CAPSULE PO (09:00)
[2022-04-09 11:00] VITALS: BP 130/57; PULSE 70; RESP 17; TEMP 36.2; O2SAT 96
--- NOTE | 2022-04-09 11:32 | CM.DPNOTE ---
Discharge Planning Note: Spoke with Keely at [facility], PT has been following her. Spoke about needing to add RN due to probable med changes and due to her exertional chest pain. We will need a new F2F and resume orders. Hospitalist states she will need to have part 2 of her stress test tomorrow and then depending on results/status could discharge. Plan: Send F2F for RN/PT, place Resumption of Care orders. When medicall cleared, dc back to [facility]. Renee Huynh RN/DCP
--- NOTE | 2022-04-09 13:59 | CM.DPNOTE ---
Discharge Planning Note: Patient to have nuclear stress test and echo today. Tomorrow will be part 2 of stress test. [facility] has been with patient and will resume on discharge. New F2F and Resumption of Care orders for RN/PT sent today. Also spoke with them regarding possible discharge tomorrow if stable for dc. Plan: When medically cleared, return to [facility] with [facility] . Fax dc summary to [facility] on DC. Renee Huynh RN/DCP
--- NOTE | 2022-04-09 14:15 | OT.IPNOTE ---
OT eval and treat order received. Chart reviewed and discussed with pt. Pt states she is at her baseline for ADLs and mobility. Will discharge OT eval order at this time.
--- NOTE | 2022-04-09 16:24 | P.DS_ITS ---
History of Present Illness History of Present Illness Date Patient Seen: 04/09/22 Time Patient Seen: 20:46 Chief complaint: Chest pain, high blood pressure x2 days Narrative: Fallon Scott is a 77-year-old female who resides at 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 In ED asymptomatic, earlier CP episodes were without shortness of breath, sweating, nausea, vomiting, numbness, tingling or weakness, or cough. On admit patient denies shortness in breath, headache, changes in vision, difficulty swallowing, speech impairment, weakness, numbness, tingling, difficulty with ambulation, recent falls, head injury, LOC, fever, body aches, chills, cough, recent exposure to illness, abdominal pain, nausea, vomiting, urinary incontinence/retention, dysuria, frequency, urgency, hematuria, bowel changes, constipation, incontinence, melena, rashes, recent changes to medication, injury, or trauma. Patient noted that she was having some mid left sternal chest discomfort that was reproducible with palpation 2/10 non radiating , she suffers from chronic constipation and notes that she has 1-2 bowel movements per week last BM was yesterday morning, 03/29/2022 diagnosed with sinus infection and was placed on a Z-Moses. At the time of admit patient is stable asymptomatic. temp 97.1?, 155/74, 69, 15, 97% on room air. Patient's CBC is unremarkable, stable potassium 3.9, Mag 2.2. Creatinine 1.2 GFR 46-unknown if this is CKD versus DELORES. Alk-phos 155, CK 143, lipase WNL. Initial troponin 0.016, repeat 0.04, 0.046-heart score: 5, EKG NSR rate [address] or T-wave changes. Noted that we have no records labs, or diagnostics for comparison. Patient admitted for chest pain, risk stratification and rule out. Discharge Providers Provider Date of admission: 04/07/22 20:27 Discharge Date: 04/09/22 Consults: 04/07/22 20:44 Consult to Dietitian, Adult Routine Comment: Reason For Exam: bmi 38.6 04/07/22 20:45 Consult to Occupational Therapy Evaluate & Treat Comment: mobility assess Physician Instructions: Evaluate and treat Consult to Physical Therapy Evaluate & Treat Comment: Mobility assess Physician Instructions: Evaluate and Treat 04/09/22 11:35 Consult to Home Health Routine Comment: Resumption of Care orders for [facility] Reason For Exam: Home Health: for RN, PT Discharge provider: Kenneth Oh DO Summary Hospital Course Discharge Diagnosis: 1. Exertional chest pain Patient had mildly increased troponin.? Initial troponin was 0.016, an increase to 0.04 and peaked at 0.046.? It has since come down to 0.014.? She has not had any chest pain since arrival to the emergency department.? EKG was nonischemic.? Suspect this is demand ischemia rather than NSTEMI.? Echo was normal with EF 60- 65% and stress test had minor defect which was likely artifact from breast tissue. No chest pain during stress test. Suspect patient's pain was GERD rela mike as she reports burping alot lately and having issues with GERD. 2. Shortness of breath/leg edema due to HFpEF exacerbation. Patient reports recent prescription for diuretics starting prior to [place].? Likely due to HFpEF and given IV lasix. 3. Hypertension, primary, chronic, present on admission Continue losartan.? Blood pressures were significantly elevated overnight.? Now they are down to 136/64.? Will monitor. 4. Hyperlipidemia Continue atorvastatin.? Total cholesterol is 169, triglycerides 184, LDL 84, HDL 48. 5. Hypothyroidism, acquired, chronic continue levothyroxine.? TSH is 7.00.? Free T4 normal at 0.83. 6. GERD, chronic Patient is on Dexilant on an outpatient basis.? Continue Protonix per formulary substitution. 7. Migraines, chronic, intractable, without aura or status migrainous, chronic, present on admission Denies symptoms currently.? Continue Fioricet as needed 8. Cerebral palsy, , chronic, with cervical spondylosis with myelopathy, peripheral nervous system disorder, chronic, present on admission Continue amitriptyline, baclofen, Lyrica, Dicyclomine (upper GI motility), Zonisamide (anticonvulsant) 9.?Class 2 obesity Await dietitian consult.? Patient is at risk for significant morbidity/mortality.? It will be difficult for her to achieve weight reduction given her physical mobility limitations 10. DELORES, acute, versus CKD, present on admission Creatinine improved at 1.01.? Suspect she has developed some mild CKD as a consequence of her diuretic therapy.? Will monitor.? Restarting furosemide as noted 11.Spinal stenosis, lumbar with neurogenic claudication, chronic, spondylosis, lumbar region, with mononeuropathy of bilateral lower extremities, low back pain, chronic, present on admission Continue amitriptyline, baclofen, Lyrica, lidocaine patch, Voltaren, Ice as needed 12. 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 No chest pain during stress test and only small minor defect seen which was likely breast tissue. Resting stress was offered to patient vs going home given echo was normal along with not significantly elevated trops and patient elected to return home with precautions to return if the chest pain reoccured. Time Spent with Patient Time spent: Greater than 30 minutes Exam Vital Signs (past 8 hours): - 04/09/22 11:00 Temperature 97.1 F L Pulse Rate 70 Respiratory Rate 17 Blood Pressure 130/57 L Pulse Oximetry 96 Oxygen Flow Rate 0 Oxygen Delivery Method Room Air Oxygen Flow Rate 0 Narrative Exam Narrative: GEN: Pleasant elderly female, Alert and oriented x 3, NAD HEENT:NC, Face symmetric CHEST: Respiratory excursions symmetric, CTAB CV: RRR, no M/R/G ABD: Soft, obese, NT/ND, BT present in all 4 quadrants, body habitus limits exam EXTR: warm, well perfused, no C/C, moderate nonpitting edema bilaterally SKIN: warm and dry, no rash NEURO: Alert and oriented x 3, nonfocal Objective Labs 04/09/22 05:53 04/09/22 05:53 Labs: Laboratory Results - last 24 hr 04/08/22 04/08/22 04/08/22 19:30 19:30 19:30 WBC RBC Hgb Hct MCV MCH MCHC RDW Plt Count Neut % (Auto) Lymph % (Auto) [place] % (Auto) Eos % (Auto) Baso % (Auto) Neut # (Auto) Lymph # (Auto) [place] # (Auto) Eos # (Auto) Baso # (Auto) Sodium 140 Potassium 4.2 Chloride 100 Carbon Dioxide 30 BUN 22 H Creatinine 1.26 H Estimated GFR 44 L BUN/Creatinine Ratio 17.5 Glucose 107 Calcium 9.2 Magnesium 2.2 Total Bilirubin 0.2 AST 24 ALT 20 Alkaline Phosphatase 144 H Troponin I < 0.012 Total Protein 7.7 Albumin 4.2 Globulin 3.5 Albumin/Globulin Ratio 1.2 04/09/22 04/09/22 04/09/22 05:53 05:53 05:53 WBC 6.6 RBC 3.56 L Hgb 10.6 L Hct 31.7 L MCV 89.1 MCH 29.9 MCHC 33.6 RDW 15.2 H Plt Count 247 Neut % (Auto) 59.8 Lymph % (Auto) 29.4 Durham % (Auto) 8.6 Eos % (Auto) 1.8 L Baso % (Auto) 0.4 Neut # (Auto) 4000 Lymph # (Auto) 2000 Durham # (Auto) 600 Eos # (Auto) 100 Baso # (Auto) 0 Sodium 139 Potassium 3.8 Chloride 102 Carbon Dioxide 28 BUN 24 H Creatinine 1.21 H Estimated GFR 46 L BUN/Creatinine Ratio 19.8 Glucose 88 Calcium 9.0 Magnesium 2.1 Total Bilirubin AST ALT Alkaline Phosphatase Troponin I Total Protein Albumin Globulin Albumin/Globulin Ratio FORMERLY [facility], 1928–1983 Medical History (Updated 04/07/22 @ 22:52 by Christa Warren [facility]) Carpal tunnel syndrome, bilateral Cataract Cerebral palsy Cervical spondylosis with myelopathy Chronic low back pain Chronic migraine without aura, intractable, without status migrainosus Chronic rhinitis Cluster headache syndrome Corneal dystrophy CPAP (continuous positive airway pressure) dependence Depression Disorder of peripheral nervous system Essential hypertension Fibromyalgia GERD (gastroesophageal reflux disease) Hyperlipidemia Hypothyroidism (acquired) Insomnia Obesity (BMI 30-39.9) Osteoarthritis Primary hypertension Restless leg syndrome Sjogren syndrome with keratoconjunctivitis Sleep apnea 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 [facility] ([facility]/07[facility]22 @ 23[facility]38 [facility] History of carpal tunnel surgery History of fusion of cervical spine History of hysterectomy Family History (Updated 04/07/22 @ 23:39 [facility] Mother Diabetes mellitus Father Emphysema lung Social History household members: other Smoking Status: Never smoker alcohol intake: never Discharge Plan Discharge Plan Patient Disposition: Home Provider Discharge Comment: You were admitted for chest pain and all of your workup was reassuring including a stress test, echo and heart enzymes which were normal. Your chest pain may have been related to your heartburn as you mentioned you've been burping alot. Discharge orders & Medications Prescriptions: Continued baclofen 10 MG tablet 10 mg PO BEDTIME Qty: 0 amitriptyline 50 MG tablet 50 mg PO BEDTIME Qty: 0 acetaminophen 500 mg tablet 500 mg 3XD atorvastatin 40 mg tablet 40 mg PO DAILY suxskpepea-[id number]-tvnu 1 EACH tablet 1 - 2 tab PO TID PRN (Reason: headaches) Rx Instructions: Maximum 10 tablets per month CertaVite Senior 0.4 mg-300 mcg- 250 mcg tablet 1 tab PO DAILY dicyclomine 10 mg capsule 10 mg PO TID docusate sodium 100 mg capsule 200 mg PO BID furosemide 40 mg tablet 40 mg PO DAILY levothyroxine 75 mcg tablet 75 mcg PO DAILY lidocaine [Lidocaine Pain Relief] 4 % adhesive patch,medicated 1 patch TOPICAL DAILY Rx Instructions: On for twelve hours and then remove for twelve hours melatonin 5 mg Tablet 5 mg PO BEDTIME PRN (Reason: Insomnia) pantoprazole 40 mg tablet,delayed release (DR/EC) 40 mg PO DAILY polyethylene glycol 3350 [Gavilax] 17 gram/dose powder 17 g PO DAILY potassium chloride 20 mEq tablet,ER particles/crystals 20 meq PO DAILY pregabalin 100 mg capsule 100 mg PO TID zonisamide 100 mg capsule 100 mg PO DAILY ascorbic acid (vitamin C) [Vitamin C] 500 mg tablet 500 mg PO DAILY Visit Report/Discharge Packet Instructions: How to Prevent Falls, DI for Chest Pain Stand Alone Forms: Patient Portal/API, Stroke Signs & Symptoms Discharge Data Attending Provider: Christa Warren
--- NOTE | 2022-04-09 20:42 | DI.NM.S_ITS ---
DATE OF SERVICE: 04/09/2022 PROCEDURE PERFORMED: Pharmacologic stress-only myocardial perfusion imaging with gating to assess ejection fraction and regional wall motion. ORDERING PROVIDER: PAPITO Babb. INDICATIONS: The patient is a 77-year-old obese female with a history of central and peripheral neurologic issues, admitted with dyspnea and a borderline troponin. CARDIAC STRESS: Per protocol, 0.4 mg of regadenoson was infused with a normal hemodynamic response. She had no chest discomfort or other anginal symptoms. Her resting ECG shows sinus rhythm with borderline nonspecific ST-segment abnormalities that remain unchanged with stress. There were no arrhythmias. Per protocol, 27.3 millicuries of technetium-99m Myoview was infused and she was imaged 15 minutes later using a gated SPECT acquisition protocol. Given the absence of any concerning perfusion abnormalities, it was felt that resting images were not needed. FINDINGS: 1. Raw data: There is fairly good myocardial tracer uptake, although significant breast shadows clearly produce some attenuation. The lung/heart ratio is mildly elevated at 0.44, which can be a sign of pulmonary congestion but is nonspecific and is not visually evident. 2. Quantitated gated SPECT: Post-stress ejection fraction is estimated at 85% without any focal wall motion abnormality and specifically the distal anterior wall has normal contractility. The post-stress end-diastolic volume is normal at 98 mL. There is mildly increased right ventricular tracer uptake, which can be a sign of a right ventricular overload condition, but is nonspecific. 3. Myocardial perfusion imaging: Post-stress supine images shows a fairly normal myocardial perfusion pattern. There is a very small, subtle defect in the distal anteroseptum that likely reflects breast attenuation but unfortunately the patient was unable to provide prone images to assess for this. Yet, there are no concerning perfusion defects to suggest significant ischemia or prior infarction. IMPRESSION: 1. Probable normal myocardial perfusion study. 2. Small, subtle distal anterior defect that likely reflects breast attenuation artifact, although no prone images were available to assess for this. Given the absence of any significant perfusion defects, it was felt that resting images were not needed. Even if the defect does represent a true perfusion defect, the volume of myocardium involved is very small. 3. Normal left ventricular systolic function without focal wall motion abnormality and normal left ventricular volumes. There is mildly increased right ventricular tracer uptake, which can be a sign of a right ventricular overload condition, but is nonspecific. Clinical correlation is recommended. 4. No angina or ECG evidence of ischemia with pharmacologic stress. These findings were discussed with Dr. Oh and it was felt that the clinical concern for ischemia was sufficiently low that resting images were not needed. Fallon Scott - Karl/megan doc#: [id number]/job#: [id number] dd: 04/09/2022 16:51:00 dt: 04/09/2022 18:33:00 DICTATING /COPIES TO: Tommie Webster MD COPIES MNE: ANDREW;
== END 2022-04-09 16:53 | disposition home or self-care (01) ==
LOC: ED 20:18 → AC 20:42
PROVIDERS: Emergency Medicine; Family Medicine; Admitting Provider Nurse Practitioner Family; Emergency Provider Emergency Medicine; Referring Provider Emergency Medicine; Visit Provider Nurse Practitioner Family
DX: R07.89 Other chest pain (principal); G80.9 Cerebral palsy, unspecified; I10 Essential (primary) hypertension; G47.33 Obstructive sleep apnea (adult) (pediatric); K21.9 Gastro-esophageal reflux disease without esophagitis; E03.9 Hypothyroidism, unspecified; R06.02 Shortness of breath; R60.0 Localized edema; K59.09 Other constipation; E66.9 Obesity, unspecified; M48.062 Spinal stenosis, lumbar region with neurogenic claudication; Z20.822 Contact with and (suspected) exposure to COVID-19
CPT/HCPCS: 36415; 71045; 78451; 80048; 80053; 80061; 81001; 82550; 82553; 83690; 83735; 83880; 84439; 84443; 84484; 85025; 85610; 85730; 87635; 93005; 93017; 93306; 94660; 96372; 96374; 97162; 99284; C9803; G0378; A9502; J1650; J2270; J2785

== ENCOUNTER → 2022-04-25 06:28 | Outpatient (ROUT) | payer OTHER, MEDICAID, SELFPAY ==
[2022-04-07 21:16] VITALS: BMI 38.6
[2022-04-25 07:25] LABS: Hematocrit 28.8 % (36-46); Hemoglobin 9.6 g/dL (12.0-16.0)
[2022-04-25 07:34] LABS: BUN Creatinine Ratio 20.6 (6-22); Blood Urea Nitrogen 20 mg/dL (7-17); Calcium 8.7 mg/dL (8.4-10.2); Carbon Dioxide 29 mmol/L (22-32); Chloride 103 mmol/L (98-107); Estimated Glomerular Filt Rate 60 mL/min (>60); Glucose 91 mg/dL (80-110); HEMOLYSIS < 15 (0-50); Potassium 3.9 mmol/L (3.4-5.1); Sodium 139 mmol/L (137-145)
== END ==
PROVIDERS: Visit Provider Nurse Practitioner Family
DX: D64.9 Anemia, unspecified (principal)
CPT/HCPCS: 36415; 80048; 84443; 85014; 85018

== ENCOUNTER → 2022-05-02 06:14 | Outpatient (ROUT) | payer OTHER, MEDICAID, SELFPAY ==
[2022-04-07 21:16] VITALS: BMI 38.6
[2022-05-02 09:20] LABS: Add Manual Diff / Slide Review NO; Basophils Absolute Auto 100 /uL (0-100); Basophils Percent Auto 0.7 % (0-2); Eosinophils Absolute Auto 200 /uL (0-450); Eosinophils Percent Auto 2.4 % (2-4); Hematocrit 28.9 % (36-46); Hemoglobin 9.7 g/dL (12.0-16.0); Lymphocytes Absolute Auto 1800 /uL (1100-4500); Lymphocytes Percent Auto 23.8 % (25-40); Mean Corpuscular HGB Conc 33.6 % (30-36); Mean Corpuscular Hemoglobin 29.9 PG (26-34); Mean Corpuscular Volume 89.2 fL (80-100); Monocytes Absolute Auto 500 /uL (0-900); Neutrophils Absolute Auto 4900 /uL (1500-7000); Neutrophils Percent Auto 66.1 % (50-75); Platelet Count 225 X10^3/uL (150-400); Red Blood Cell Count 3.24 X10^6/uL (4.0-5.2); Red Cell Distribution Width 14.8 % (11.6-14.8); White Blood Cell Count 7.4 X10^3/uL (4.5-11.0)
[2022-05-02 09:42] LABS: BUN Creatinine Ratio 20.8 (6-22); Blood Urea Nitrogen 22 mg/dL (7-17); Calcium 8.9 mg/dL (8.4-10.2); Carbon Dioxide 28 mmol/L (22-32); Chloride 103 mmol/L (98-107); Estimated Glomerular Filt Rate 54 mL/min (>60); Glucose 79 mg/dL (80-110); HEMOLYSIS < 15 (0-50); Potassium 3.7 mmol/L (3.4-5.1); Sodium 138 mmol/L (137-145)
[2022-05-02 09:47] LABS: HEMOLYSIS < 15 (0-50); Iron 45 ug/dL (37-170)
[2022-05-02 09:58] LABS: Percent Iron Saturation 19 % (15-50); Total Iron Binding Capacity 239 ug/dL (265-497); Transferrin 177 mg/dL (206-381)
[2022-05-02 10:14] LABS: Ferritin 42 ng/mL (11-264)
[2022-05-02 10:46] LABS: Folate 19.7 ng/mL (2.76-20.0); Vitamin B12 377 pg/mL (239-931)
== END ==
PROVIDERS: Visit Provider Nurse Practitioner Family
DX: R05.9 Cough, unspecified (principal); D64.9 Anemia, unspecified
CPT/HCPCS: 36415; 80048; 82607; 82728; 82746; 83540; 83550; 85025

== ENCOUNTER 2022-05-15 12:49 | Emergency (ER) | payer OTHER, MEDICAID, SELFPAY ==
[2022-04-07 21:16] VITALS: BMI 38.6
[2022-05-15 12:58] VITALS: BP 133/63; PULSE 74; RESP 20; TEMP 36.6; O2SAT 98; BMI 38.9
--- NOTE | 2022-05-15 13:04 | DI.RAD.S_ITS ---
PROCEDURE: XR CHEST 1V INDICATIONS: Shortness of breath TECHNIQUE: One view of the chest was acquired. COMPARISON: [facility], CR, XR CHEST 1V, 04/07/2022, 15:17. FINDINGS: Surgical changes and devices: None. Lungs and pleura: Increased pulmonary markings and peribronchial cuffing. Mediastinum: Mediastinal contours appear normal. Heart size is normal. Bones and chest wall: No suspicious bony lesions. Overlying soft tissues appear unremarkable. IMPRESSION: Suspect mild interstitial edema, given peribronchial cuffing and increased pulmonary markings. Dictated by: Mitch Natarajan M.D. on 05/15/2022 at 14:25 Approved by: Mitch Natarajan M.D. on 05/15/2022 at 14:26
[2022-05-15 13:32] LABS: INR 1.1 (0.9-1.3); Prothrombin Time 12.1 SECONDS (10.1-12.7)
[2022-05-15 13:37] LABS: Add Manual Diff / Slide Review NO; Basophils Absolute Auto 100 /uL (0-100); Basophils Percent Auto 0.7 % (0-2); Eosinophils Absolute Auto 100 /uL (0-450); Eosinophils Percent Auto 1.3 % (2-4); Hematocrit 33.7 % (36-46); Hemoglobin 11.2 g/dL (12.0-16.0); Lymphocytes Absolute Auto 1500 /uL (1100-4500); Lymphocytes Percent Auto 17.6 % (25-40); Mean Corpuscular HGB Conc 33.1 % (30-36); Mean Corpuscular Hemoglobin 29.8 PG (26-34); Mean Corpuscular Volume 89.9 fL (80-100); Monocytes Absolute Auto 700 /uL (0-900); Monocytes Percent Auto 8.1 % (3-14); Neutrophils Absolute Auto 6000 /uL (1500-7000); Neutrophils Percent Auto 72.3 % (50-75); Platelet Count 282 X10^3/uL (150-400); Red Blood Cell Count 3.75 X10^6/uL (4.0-5.2); Red Cell Distribution Width 15.1 % (11.6-14.8); White Blood Cell Count 8.3 X10^3/uL (4.5-11.0)
[2022-05-15 13:39] LABS: Lactate (Lactic Acid) 1.3 mmol/L (0.7-2.1)
[2022-05-15 13:40] LABS: Alanine Aminotransferase 17 IU/L (<35); Albumin 4.4 g/dL (3.5-5.0); Albumin Globulin Ratio 1.2 (1.0-2.8); Alkaline Phosphatase 146 U/L (38-126); Aspartate Aminotransferase 19 IU/L (14-36); BUN Creatinine Ratio 17.5 (6-22); Bilirubin Total 0.2 mg/dL (0.2-1.3); Blood Urea Nitrogen 21 mg/dL (7-17); Calcium 9.3 mg/dL (8.4-10.2); Carbon Dioxide 29 mmol/L (22-32); Chloride 101 mmol/L (98-107); Estimated Glomerular Filt Rate 46 mL/min (>60); Globulin 3.6 g/dL (1.7-4.1); Glucose 118 mg/dL (80-110); Sodium 139 mmol/L (137-145)
[2022-05-15 13:51] LABS: NT-proBNP (BNP-Adult 18+) 52 pg/mL (<450); Troponin I < 0.012 ng/mL (0.01-0.034)
[2022-05-15 13:54] LABS: HEMOLYSIS < 15 (0-50)
[2022-05-15 17:06] LABS: D Dimer 1583 ng/ml (<500)
--- NOTE | 2022-05-15 17:08 | DI.CT.S_ITS ---
PROCEDURE: CT ANGIO CHEST PE PROTOCOL INDICATIONS: Shortness of breath, elevated D-dimer TECHNIQUE: After the administration of intravenous contrast, 2 mm thick sections acquired from the pulmonary apices to the posterior costophrenic angles. 3-dimensional maximum intensity projection (MIP) coronal and sagittal reformats were then acquired through the thorax. For radiation dose reduction, the following was used: automated exposure control, adjustment of mA and/or kV according to patient size. COMPARISON: CT, CT CHEST WO CON, 03/13/2016, 13:20. FINDINGS: Image quality: Excellent. Pulmonary arteries: Pulmonary arteries are normal in size, and demonstrate no intraluminal filling defects to suggest central pulmonary embolism. Lungs and pleura: Lungs are clear. No pleural effusions or pneumothorax. Central and peripheral airways are patent. Mediastinum: The heart is mildly enlarged and there is a prominent left atrial appendage. Great vessels are normal caliber. No pericardial effusion. The esophagus is normal without significant hiatal hernia. There are a few borderline subcarinal lymph nodes. No hilar adenopathy. Bones and chest wall: No suspicious bony lesions. Ribs and thoracic spine appear intact throughout. Thyroid gland not well evaluated.. No axillary or supraclavicular adenopathy. Abdomen: Visualized upper abdominal solid organs appear normal in the early arterial phase of enhancement. IMPRESSION: 1. No pulmonary embolus. 2. Mild/borderline subcarinal adenopathy. No visible infectious or inflammatory pathology in the lungs. This was present on the prior study. 3. Mild cardiomegaly, mildly increased compared to 2017. Dictated by: Eden Vickers M.D. on 05/15/2022 at 18:07 Approved by: Eden Vickers M.D. on 05/15/2022 at 18:12
--- NOTE | 2022-05-15 20:11 | ED.SOB ---
HPI - SOB/Dyspnea <Troy Shields PA-C - Last Filed: 05/15/22 20:17> General Chief Complaint: Shortness of Breath/Dyspnea Stated Complaint: Sent by for stat CT scan Time Seen by Provider: 05/15/22 13:36 Source: patient Mode of arrival: Wheelchair History of Present Illness HPI Narrative: 77-year-old female who was seen last week here in the ED for bronchitis presents to the ED for worsening shortness of breath. Patient states that her cough has since then resolved. Patient was seen by her doctor today, sent to the ED for further evaluation. Patient denies fever, chills, chest pain, nausea, vomiting, abdominal pain, lightheadedness, dizziness, syncope. Related Data Home Medications Medication Instructions Recorded Confirmed amitriptyline 50 mg tablet 50 mg PO BEDTIME ##0 12/19/16 04/07/22 baclofen 10 mg tablet 10 mg PO BEDTIME muscle spasm ##0 12/19/16 04/07/22 acetaminophen 500 mg tablet 500 mg 3XD 04/07/22 04/07/22 ascorbic acid (vitamin C) 500 mg 500 mg PO DAILY 04/07/22 04/07/22 tablet (Vitamin C) atorvastatin 40 mg tablet 40 mg PO DAILY 04/07/22 04/07/22 jocscnhepo-mnduzclflzsjv-ygsaxodt 1 - 2 tab PO TID PRN headaches 04/07/22 04/07/22 50 mg-325 mg-40 mg tablet dicyclomine 10 mg capsule 10 mg PO TID GERD 04/07/22 04/07/22 docusate sodium 100 mg capsule 200 mg PO BID Constipation 04/07/22 04/07/22 furosemide 40 mg tablet 40 mg PO DAILY 04/07/22 04/07/22 levothyroxine 75 mcg tablet 75 mcg PO DAILY 04/07/22 04/07/22 lidocaine 4 % topical patch 1 patch topical DAILY 04/07/22 04/07/22 (Lidocaine Pain Relief) melatonin 5 mg tablet 5 mg PO BEDTIME PRN Insomnia 04/07/22 04/07/22 cstzrdge-bra-dgtww acid 0.4 1 tab PO DAILY 04/07/22 04/07/22 mg-lycopene 300 mcg-lutein 250 mcg tablet (CertaVite Senior) pantoprazole 40 mg tablet,delayed 40 mg PO DAILY GERD 04/07/22 04/07/22 release polyethylene glycol 3350 17 17 g PO DAILY constipation 04/07/22 04/07/22 gram/dose oral powder (Gavilax) potassium chloride 20 mEq 20 meq PO DAILY 04/07/22 04/07/22 tablet,extended release(part/cryst) pregabalin 100 mg capsule 100 mg PO TID pain management 04/07/22 04/07/22 zonisamide 100 mg capsule 100 mg PO DAILY 04/07/22 04/07/22 Previous Rx's Medication Instructions Recorded azithromycin 250 mg tablet See Rx Instructions PO .COMPLEX #6 05/15/22 (Zithromax Z-Moses) tabs Allergies Allergy/AdvReac Type Severity Reaction Status Date / Time Penicillins [PENICILLINS] Allergy Mild Unverified 06/19/17 12:48 prednisone [PREDNISONE] Allergy Mild Unverified 06/19/17 12:48 Review of Systems <Troy Shields PA-C - Last Filed: 05/15/22 20:17> Review of Systems ROS Unobtainable: All systems reviewed & are unremarkable except as noted in HPI and below Constitutional Constitutional: Denies chills, Denies fatigue, Denies fever(s), Denies frequent falls, Denies lethargy and Denies weakness Eyes Eyes: Denies change in vision, Denies eye discharge, Denies irritation and Denies loss of vision ENT Ears, Nose, Mouth, and Throat: Denies change in voice, Denies dizziness, Denies neck pain, Denies sore throat and Denies throat swelling Cardiovascular Cardiovascular: Denies chest pain, Denies irregular heart rhythm, Denies lightheadedness, Denies palpitations, Reports dyspnea, Reports dyspnea on exertion and Denies orthopnea Respiratory Respiratory: Denies cough, Reports dyspnea, Reports dyspnea on exertion and Denies wheezing Gastrointestinal Gastrointestinal: Denies abdominal pain, Denies change in bowel habits, Denies diarrhea, Denies nausea and Denies vomiting Genitourinary Genitourinary: Denies hematuria, Denies flank pain, Denies urinary incontinence and Denies urinary urgency Musculoskeletal Musculoskeletal: Denies back pain, Denies muscle weakness, Denies neck pain, Denies numbness and Denies tingling Integumentary/Breasts Skin/Breast: Denies pruritus, Denies erythema, Denies rash and Denies wounds Neurologic Neurologic: Denies behavioral changes, Denies confusion, Denies dizziness, Denies frequent falls, Denies loss of vision, Denies numbness, Denies tingling and Denies weakness Psychiatric Psychiatric: Denies anxiety, Denies behavioral changes, Denies confusion, Denies depression, Denies homicidal ideation and Denies suicidal ideation Endocrine Endocrine: Denies fatigue, Denies flushing and Denies palpitations Hematologic/Lymphatic Hematologic/Lymphatic: Denies easy bruising Allergic/Immunologic Allergic/Immunologic: Denies urticaria, Denies throat swelling and Denies wheezing Patient History <Troy Shields PA-C - Last Filed: 05/15/22 20:17> Medical History Carpal tunnel syndrome, bilateral Cataract Cerebral palsy Cervical spondylosis with myelopathy Chronic low back pain Chronic migraine without aura, intractable, without status migrainosus Chronic rhinitis Cluster headache syndrome Corneal dystrophy CPAP (continuous positive airway pressure) dependence Depression Disorder of peripheral nervous system Essential hypertension Fibromyalgia GERD (gastroesophageal reflux disease) Hyperlipidemia Hypothyroidism (acquired) Insomnia Obesity (BMI 30-39.9) Osteoarthritis Primary hypertension Restless leg syndrome Sjogren syndrome with keratoconjunctivitis Sleep apnea 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 Surgical History History of carpal tunnel surgery History of fusion of cervical spine History of hysterectomy Family History Mother Diabetes mellitus Father Emphysema lung Social History household members: other Smoking Status: Never smoker alcohol intake: never Smoking Status: Never smoker Substance Use Type: does not use Exam <Troy Shields PA-C - Last Filed: 05/15/22 20:17> Narrative Exam Narrative: Const General:?cooperative, healthy appearing and comfortable [facility] Head:?normal to inspection Ears:?hearing grossly normal bilaterally Nose:?external nose normal Face and sinus:?normal facial exam and sinuses nontender Mouth:?oral mucosae normal Throat:?posterior oropharynx normal Eyes General:?appearance normal, both eyes and all related structures Neck Neck:?normal visual inspection and no lymphadenopathy noted Resp Effort & Inspection:?normal respiratory effort Auscultation:?clear to auscultation bilaterally Cardio Rate:?regular rate Rhythm:?regular rhythm Neuro General:?patient alert, patient awake and patient oriented x3 Initial Vital Signs Initial Vital Signs: Vital Signs Temperature 97.9 F 05/15/22 12:58 Pulse Rate 74 05/15/22 12:58 Respiratory Rate 20 05/15/22 12:58 Blood Pressure 133/63 05/15/22 12:58 Pulse Oximetry 98 05/15/22 12:58 Oxygen Delivery Method Room Air 05/15/22 12:58 <DO Bharat Tillman Last Filed: 05/16/22 01:42> Initial Vital Signs Initial Vital Signs: Vital Signs Temperature 97.9 F 05/15/22 12:58 Pulse Rate 74 05/15/22 12:58 Respiratory Rate 20 05/15/22 12:58 Blood Pressure 133/63 05/15/22 12:58 Pulse Oximetry 98 05/15/22 12:58 Oxygen Delivery Method Room Air 05/15/22 12:58 Course <Troy Shields PA-C - Last Filed: 05/15/22 20:17> Orders Ordered: ED Orders 05/15/22 17:08 CT angio chest PE protocol Stat Vital Signs Vital signs: Vital Signs - 8 hr 05/15/22 12:58 Temperature 97.9 F Pulse Rate 74 Respiratory Rate 20 Blood Pressure 133/63 Pulse Oximetry 98 Oxygen Delivery Method Room Air <DO Bharat Tillman Last Filed: 05/16/22 01:42> Orders Ordered: ED Orders 05/15/22 17:08 CT angio chest PE protocol Stat Vital Signs Vital signs: Vital Signs - 8 hr 05/15/22 12:58 Temperature 97.9 F Pulse Rate 74 Respiratory Rate 20 Blood Pressure 133/63 Pulse Oximetry 98 Oxygen Delivery Method Room Air MDM - SOB/Dyspnea <JEANNINE Krueger Last Filed: 05/15/22 20:17> Lab Data 05/15/22 13:12 05/15/22 13:12 Labs: Lab Results 05/15/22 05/15/22 05/15/22 Range/Units 13:12 13:12 13:12 WBC 8.3 (4.5-11.0) X10^3/uL RBC 3.75 L (4.0-5.2) X10^6/uL Hgb 11.2 L (12.0-16.0) g/dL Hct 33.7 L (36-46) % MCV 89.9 (80-100) fL MCH 29.8 (26-34) PG MCHC 33.1 (30-36) % RDW 15.1 H (11.6-14.8) % Plt Count 282 (150-400) X10^3/uL Neut % (Auto) 72.3 (50-75) % Lymph % (Auto) 17.6 L (25-40) % [place] % (Auto) 8.1 (3-14) % Eos % (Auto) 1.3 L (2-4) % Baso % (Auto) 0.7 (0-2) % Neut # (Auto) 6000 (2722-6960) /uL Lymph # (Auto) 1500 (5817-1812) /uL [place] # (Auto) 700 (0-900) /uL Eos # (Auto) 100 (0-450) /uL Baso # (Auto) 100 (0-100) /uL PT 12.1 (10.1-12.7) SECONDS INR 1.1 (0.9-1.3) D-Dimer (<500) ng/ml Sodium 139 (137-145) mmol/L Potassium 4.0 (3.4-5.1) mmol/L Chloride 101 (98-107) mmol/L Carbon Dioxide 29 (22-32) mmol/L BUN 21 H (7-17) mg/dL Creatinine 1.20 H (0.52-1.04) mg/dL Estimated GFR 46 L (>60) mL/min BUN/Creatinine Ratio 17.5 (6-22) Glucose 118 H (80-110) mg/dL Lactate (0.7-2.1) mmol/L Calcium 9.3 (8.4-10.2) mg/dL Total Bilirubin 0.2 (0.2-1.3) mg/dL AST 19 (14-36) IU/L ALT 17 (<35) IU/L Alkaline Phosphatase 146 H (38-126) U/L Troponin I < 0.012 (0.01-0.034) ng/mL NT-Pro-B Natriuret Pep 52 (<450) pg/mL Total Protein 8.0 (6.3-8.2) g/dL Albumin 4.4 (3.5-5.0) g/dL Globulin 3.6 (1.7-4.1) g/dL Albumin/Globulin Ratio 1.2 (1.0-2.8) 05/15/22 05/15/22 Range/Units 13:12 13:30 WBC (4.5-11.0) X10^3/uL RBC (4.0-5.2) X10^6/uL Hgb (12.0-16.0) g/dL Hct (36-46) % MCV (80-100) fL MCH (26-34) PG MCHC (30-36) % RDW (11.6-14.8) % Plt Count (150-400) X10^3/uL Neut % (Auto) (50-75) % Lymph % (Auto) (25-40) % [place] % (Auto) (3-14) % Eos % (Auto) (2-4) % Baso % (Auto) (0-2) % Neut # (Auto) (4901-4531) /uL Lymph # (Auto) (5411-2387) /uL [place] # (Auto) (0-900) /uL Eos # (Auto) (0-450) /uL Baso # (Auto) (0-100) /uL PT (10.1-12.7) SECONDS INR (0.9-1.3) D-Dimer 1583 H (<500) ng/ml Sodium (137-145) mmol/L Potassium (3.4-5.1) mmol/L Chloride (98-107) mmol/L Carbon Dioxide (22-32) mmol/L BUN (7-17) mg/dL Creatinine (0.52-1.04) mg/dL Estimated GFR (>60) mL/min BUN/Creatinine Ratio (6-22) Glucose (80-110) mg/dL Lactate 1.3 (0.7-2.1) mmol/L Calcium (8.4-10.2) mg/dL Total Bilirubin (0.2-1.3) mg/dL AST (14-36) IU/L ALT (<35) IU/L Alkaline Phosphatase (38-126) U/L Troponin I (0.01-0.034) ng/mL NT-Pro-B Natriuret Pep (<450) pg/mL Total Protein (6.3-8.2) g/dL Albumin (3.5-5.0) g/dL Globulin (1.7-4.1) g/dL Albumin/Globulin Ratio (1.0-2.8) Urine Dip Bedside Urine Glucose Negative Bedside Urine Bilirubin - Negative Bedside Urine Ketone - Negative Urine Specific [place] 1.010 Bedside Urine Occult Blood - Negative Bedside Urine pH 6.0 Bedside Urine Protein - Negative Bedside Urine Urobilinogen - Negative Bedside Urine Nitrite - Negative Bedside Urine Leukocytes - Negative Esterase MDM Narrative Medical decision making narrative: 77-year-old female who was seen last week here in the ED for bronchitis presents to the ED for worsening shortness of breath. Concern for ACS versus CHF exacerbation versus pneumonia versus PE versus bronchitis versus other. Obtained chest x-ray, EKG, labs, troponin, BNP, D-dimer. D-dimer was elevated to 1583. CT scan of the chest was obtained to rule out PE. CT scan shows no pulmonary embolus, mild cardiomegaly increased somewhat from 2017. No other acute findings. Discussed findings with patient. She would like to trial a dose of antibiotics, prescribed a course of Zithromax.. Supportive care was also mentioned with patient. ED return precautions were discussed with patient. Patient verbalized understanding. Medical records reviewed: Yes <Vu Campos DO - Last Filed: 05/16/22 01:42> Lab Data Labs: Lab Results 05/15/22 05/15/22 05/15/22 Range/Units 13:12 13:12 13:12 WBC 8.3 (4.5-11.0) X10^3/uL RBC 3.75 L (4.0-5.2) X10^6/uL Hgb 11.2 L (12.0-16.0) g/dL Hct 33.7 L (36-46) % MCV 89.9 (80-100) fL MCH 29.8 (26-34) PG MCHC 33.1 (30-36) % RDW 15.1 H (11.6-14.8) % Plt Count 282 (150-400) X10^3/uL Neut % (Auto) 72.3 (50-75) % Lymph % (Auto) 17.6 L (25-40) % [place] % (Auto) 8.1 (3-14) % Eos % (Auto) 1.3 L (2-4) % Baso % (Auto) 0.7 (0-2) % Neut # (Auto) 6000 (9845-2203) /uL Lymph # (Auto) 1500 (3173-9729) /uL [place] # (Auto) 700 (0-900) /uL Eos # (Auto) 100 (0-450) /uL Baso # (Auto) 100 (0-100) /uL PT 12.1 (10.1-12.7) SECONDS INR 1.1 (0.9-1.3) D-Dimer (<500) ng/ml Sodium 139 (137-145) mmol/L Potassium 4.0 (3.4-5.1) mmol/L Chloride 101 (98-107) mmol/L Carbon Dioxide 29 (22-32) mmol/L BUN 21 H (7-17) mg/dL Creatinine 1.20 H (0.52-1.04) mg/dL Estimated GFR 46 L (>60) mL/min BUN/Creatinine Ratio 17.5 (6-22) Glucose 118 H (80-110) mg/dL Lactate (0.7-2.1) mmol/L Calcium 9.3 (8.4-10.2) mg/dL Total Bilirubin 0.2 (0.2-1.3) mg/dL AST 19 (14-36) IU/L ALT 17 (<35) IU/L Alkaline Phosphatase 146 H (38-126) U/L Troponin I < 0.012 (0.01-0.034) ng/mL NT-Pro-B Natriuret Pep 52 (<450) pg/mL Total Protein 8.0 (6.3-8.2) g/dL Albumin 4.4 (3.5-5.0) g/dL Globulin 3.6 (1.7-4.1) g/dL Albumin/Globulin Ratio 1.2 (1.0-2.8) 05/15/22 05/15/22 Range/Units 13:12 13:30 WBC (4.5-11.0) X10^3/uL RBC (4.0-5.2) X10^6/uL Hgb (12.0-16.0) g/dL Hct (36-46) % MCV (80-100) fL MCH (26-34) PG MCHC (30-36) % RDW (11.6-14.8) % Plt Count (150-400) X10^3/uL Neut % (Auto) (50-75) % Lymph % (Auto) (25-40) % [place] % (Auto) (3-14) % Eos % (Auto) (2-4) % Baso % (Auto) (0-2) % Neut # (Auto) (5564-4125) /uL Lymph # (Auto) (4749-1698) /uL [place] # (Auto) (0-900) /uL Eos # (Auto) (0-450) /uL Baso # (Auto) (0-100) /uL PT (10.1-12.7) SECONDS INR (0.9-1.3) D-Dimer 1583 H (<500) ng/ml Sodium (137-145) mmol/L Potassium (3.4-5.1) mmol/L Chloride (98-107) mmol/L Carbon Dioxide (22-32) mmol/L BUN (7-17) mg/dL Creatinine (0.52-1.04) mg/dL Estimated GFR (>60) mL/min BUN/Creatinine Ratio (6-22) Glucose (80-110) mg/dL Lactate 1.3 (0.7-2.1) mmol/L Calcium (8.4-10.2) mg/dL Total Bilirubin (0.2-1.3) mg/dL AST (14-36) IU/L ALT (<35) IU/L Alkaline Phosphatase (38-126) U/L Troponin I (0.01-0.034) ng/mL NT-Pro-B Natriuret Pep (<450) pg/mL Total Protein (6.3-8.2) g/dL Albumin (3.5-5.0) g/dL Globulin (1.7-4.1) g/dL Albumin/Globulin Ratio (1.0-2.8) Urine Dip Bedside Urine Glucose Negative Bedside Urine Bilirubin - Negative Bedside Urine Ketone - Negative Urine Specific [place] 1.010 Bedside Urine Occult Blood - Negative Bedside Urine pH 6.0 Bedside Urine Protein - Negative Bedside Urine Urobilinogen - Negative Bedside Urine Nitrite - Negative Bedside Urine Leukocytes - Negative Esterase Discharge Plan Departure Patient Disposition: Home Clinical Impression: SOB (shortness of breath) Instructions: DI for Acute Bronchitis, DI for Shortness of Breath Activity Restrictions/Additional Instructions: You were evaluated in the ED today for shortness of breath. Your labs, cardiac markers, EKG, CT chest did not show any acute findings. You are being prescribed a course of antibiotics to trial. Please take the full course of antibiotics as prescribed. Return to the ED if your symptoms worsen, you have worsening shortness of breath or chest pain. Please follow-up with your primary care doctor tomorrow. Prescriptions: New azithromycin [Zithromax Z-Moses] 250 mg tablet See Rx Instructions .ROUTE .COMPLEX Qty: 6 0RF Rx Instructions: For 250 mg dose pack: take 500 mg today (day 1), then 250 mg for 4 days (days 2-5) No Action baclofen 10 MG tablet 10 mg PO BEDTIME Qty: 0 amitriptyline 50 MG tablet 50 mg PO BEDTIME Qty: 0 acetaminophen 500 mg tablet 500 mg 3XD atorvastatin 40 mg tablet 40 mg PO DAILY [id number]-hpab 1 EACH tablet 1 - 2 tab PO TID PRN (Reason: headaches) Rx Instructions: Maximum 10 tablets per month CertaVite Senior 0.4 mg-300 mcg- 250 mcg tablet 1 tab PO DAILY dicyclomine 10 mg capsule 10 mg PO TID docusate sodium 100 mg capsule 200 mg PO BID furosemide 40 mg tablet 40 mg PO DAILY levothyroxine 75 mcg tablet 75 mcg PO DAILY lidocaine [Lidocaine Pain Relief] 4 % adhesive patch,medicated 1 patch TOPICAL DAILY Rx Instructions: On for twelve hours and then remove for twelve hours melatonin 5 mg Tablet 5 mg PO BEDTIME PRN (Reason: Insomnia) pantoprazole 40 mg tablet,delayed release (DR/EC) 40 mg PO DAILY polyethylene glycol 3350 [Gavilax] 17 gram/dose powder 17 g PO DAILY potassium chloride 20 mEq tablet,ER particles/crystals 20 meq PO DAILY pregabalin 100 mg capsule 100 mg PO TID zonisamide 100 mg capsule 100 mg PO DAILY ascorbic acid (vitamin C) [Vitamin C] 500 mg tablet 500 mg PO DAILY Referrals: Love-Silvana,Brenda, [employer] [Primary Care Provider] - Stand Alone Forms: Patient Portal/API <Vu Campos, DO - Last Filed: 05/16/22 01:42> Cosign ED Attending Cosignature Attestation: Dr Campos Co-Sign Statement: I was available for consultation during this patient's emergency department visit. This chart is signed by myself for administrative purposes only. I did not have direct contact with this patient during this visit. They were seen independently by the APC.
== END 2022-05-15 19:06 | disposition home or self-care (01) ==
PROVIDERS: Emergency Medicine; Emergency Provider Student in an Organized Health Care Education/Training Program; PCP Nurse Practitioner Family
DX: R06.02 Shortness of breath (principal); R79.89 Other specified abnormal findings of blood chemistry
CPT/HCPCS: 36415; 71045; 71275; 80053; 81003; 83605; 83880; 84484; 85025; 85379; 85610; 93005; 99283; 99284; Q9967

== ENCOUNTER → 2022-05-16 07:06 | Outpatient (ROUT) | payer OTHER, MEDICAID, SELFPAY ==
[2022-04-07 21:16] VITALS: BMI 38.6
[2022-05-16 07:52] LABS: Reticulocyte Count, Percent 0.9 % (1.1-2.6)
[2022-05-16 08:06] LABS: C-Reactive Protein Quant 1.5 mg/dL (<1.0)
[2022-05-16 08:12] LABS: Erythrocyte Sedimentation Rate 66 MM/HR (0-20)
== END ==
PROVIDERS: PCP Nurse Practitioner Family; Visit Provider Internal Medicine
DX: D64.9 Anemia, unspecified (principal)
CPT/HCPCS: 36415; 85045; 85651; 86140

== ENCOUNTER → 2022-05-23 09:04 | Outpatient (CLI) | payer OTHER, MEDICAID, SELFPAY ==
[2022-04-07 21:16] VITALS: BMI 38.6
--- NOTE | 2022-05-23 | DI.MRI.S_ITS ---
PROCEDURE: MR LUMBAR SPINE WO CON INDICATIONS: LUMBAR PAIN TECHNIQUE: Noncontrast sagittal T1 spin echo and T2 fast echo, sagittal STIR, and T2 fast spin echo through the lumbar spine. In cases with scoliosis, additional coronal T2 fast spin echo may be performed. COMPARISON: [facility], MR, MR LUMBAR SPINE WITHOUT CONTRAST, 07/19/2021, 10:52. [facility] [place], CR, XR LUMBAR SPINE WITH OBLIQUES PLUS FLEXION EXTENSION, 05/08/2022, 11:25. FINDINGS: Image quality: Excellent. Alignment and Curvature: There is moderate dextroconvex curvature of the lumbar spine centered at L3. Minimal grade 1 retrolisthesis of L1 on L2, L2 on L3, and L5 on S1 and mild grade 1 anterolisthesis of L4 on L5, which do not appear significantly changed when compared to the MRI from 07/19/2021. Bone Marrow: Modic type 1 degenerative endplate changes are seen adjacent to the L3-4 disc space. Marrow is of normal overall signal. No acute vertebral body compression fractures. Spinal Cord: Conus medullaris terminates at the L1-2 level. Visualized cord demonstrates normal signal and size. Paraspinous Soft Tissues: No paravertebral masses. Grade 2 fatty infiltration of the paraspinous musculature. T12-L1: Disc desiccation without significant spinal canal stenosis or neural foraminal narrowing. L1-L2: Disc desiccation and mild circumferential disc bulging with bilateral facet hypertrophy. Findings result in mild narrowing of the central spinal canal and moderate bilateral neural foraminal narrowing, not significantly changed when compared to the MRI from 07/19/2021. L2-L3: There is disc desiccation and loss of disc space height with circumferential disc bulging and moderate bilateral facet hypertrophy. Findings result in moderate narrowing of the central spinal canal as well as moderate to severe left and moderate right neural foraminal narrowing, not significantly changed when compared to 07/19/2021. L3-L4: Disc desiccation and loss of disc space height with moderate circumferential disc bulging as well as moderate bilateral facet hypertrophy and buckling of the ligamentum flavum. Findings result in moderate to severe narrowing of the central spinal canal as well as moderate to severe left and moderate right neural foraminal narrowing, which appear similar when compared to the MRI from 07/19/2021. L4-L5: Disc desiccation and circumferential disc bulging superimposed on grade 1 anterolisthesis, bilateral facet hypertrophy, and buckling of the ligamentum flavum. Findings result in moderate to severe narrowing of the central spinal canal and moderate to severe bilateral neural foraminal narrowing, which do not appear significantly changed when compared to the MRI from 07/19/2021. L5-S1: Disc desiccation and circumferential disc bulging with moderate right and mild left facet hypertrophy. Findings result in moderate to severe right and mild left neural foraminal narrowing without significant spinal canal stenosis. Findings do not appear significantly progressed when compared to the MRI from 07/19/2021. IMPRESSION: 1. Multilevel degenerative disc disease and facet hypertrophy as described in detail in the body of the report superimposed on moderate dextroconvex curvature. 2. Moderate to severe spinal canal stenosis again seen at the L3-4 and L4-5 levels. 3. High-grade neural foraminal narrowing seen on the left at the L2-3 and L3-4 levels, bilaterally at L4-5, and on the right at the L5-S1 level. Approved by: Jim Conrad M.D. on 05/24/2022 at 11:54
== END ==
PROVIDERS: PCP Nurse Practitioner Family; Referring Provider Physical Medicine & Rehabilitation Pain Medicine; Visit Provider Physical Medicine & Rehabilitation Pain Medicine
DX: M47.816 Spondylosis without myelopathy or radiculopathy, lumbar region (principal); M51.36 Other intervertebral disc degeneration, lumbar region; M51.37 Other intervertebral disc degeneration, lumbosacral region; M48.061 Spinal stenosis, lumbar region without neurogenic claudication; M48.07 Spinal stenosis, lumbosacral region
CPT/HCPCS: 72148

== ENCOUNTER → 2022-06-07 16:33 | Outpatient (CLI) | payer OTHER, MEDICAID, SELFPAY ==
[2022-04-07 21:16] VITALS: BMI 38.6
--- NOTE | 2022-06-07 | DI.US.S_ITS ---
PROCEDURE: US PERIPH VENOUS LOW EXTREM RT INDICATIONS: Please evaluate for DVT TECHNIQUE: Real-time imaging, as well as color and pulse Doppler interrogation, were performed of the lower extremity deep veins from the inguinal ligament to the popliteal fossa. COMPARISON: None. FINDINGS: The common femoral, femoral and popliteal veins are normally compressible, and free of intraluminal thrombus. Color and pulse Doppler demonstrate normal phasic intraluminal flow. There is normal augmentation response to distal compression maneuver. IMPRESSION: Negative for deep venous thrombosis. Dictated by: Manoj Watson M.D. on 06/07/2022 at 16:14 Approved by: Manoj Watson M.D. on 06/07/2022 at 16:14
== END ==
PROVIDERS: PCP Nurse Practitioner Family; Referring Provider Nurse Practitioner Family; Visit Provider Nurse Practitioner Family
DX: R22.41 Localized swelling, mass and lump, right lower limb (principal)
CPT/HCPCS: 93971

== ENCOUNTER → 2022-06-20 07:15 | Outpatient (ROUT) | payer OTHER, MEDICAID, SELFPAY ==
[2022-04-07 21:16] VITALS: BMI 38.6
[2022-06-20 07:41] LABS: BUN Creatinine Ratio 16.8 (6-22); Blood Urea Nitrogen 20 mg/dL (7-17); Calcium 9.2 mg/dL (8.4-10.2); Carbon Dioxide 30 mmol/L (22-32); Chloride 102 mmol/L (98-107); Estimated Glomerular Filt Rate 47 mL/min (>60); Glucose 94 mg/dL (80-110); HEMOLYSIS < 15 (0-50); Potassium 3.5 mmol/L (3.4-5.1); Sodium 138 mmol/L (137-145)
== END ==
PROVIDERS: PCP Nurse Practitioner Family; Visit Provider Internal Medicine
DX: N18.9 Chronic kidney disease, unspecified (principal); R60.9 Edema, unspecified
CPT/HCPCS: 36415; 80048

== ENCOUNTER → 2022-06-28 13:55 | Outpatient (CLI) | payer OTHER, MEDICAID, SELFPAY ==
[2022-04-07 21:16] VITALS: BMI 38.6
== END ==
PROVIDERS: PCP Nurse Practitioner Family; Referring Provider Internal Medicine; Visit Provider Internal Medicine
DX: R06.00 Dyspnea, unspecified (principal)
CPT/HCPCS: 94010

== ENCOUNTER → 2022-06-29 12:46 | Outpatient (CLI) | payer OTHER, MEDICAID, SELFPAY ==
[2022-04-07 21:16] VITALS: BMI 38.6
--- NOTE | 2022-06-29 | DI.RAD.S_ITS ---
PROCEDURE: FL BARIUM SWALLOW INDICATIONS: GERD/DYSPNEA COMPARISON: None. FINDINGS: study limited by patient having difficulty being positioned for acquiring images for upright, supine, and prone imaging. Function: There is abnormal esophageal peristalsis with moderate episodes of tertiary contractions resulting in delayed and retrograde flow of ingested oral contrast. No definite gastroesophageal reflux although single possible episode of reflux was noted but not reproducible. There is normal transit of a calibrated barium tablet through the esophagus into the stomach. Morphology: Air-contrast images demonstrate normal mucosal morphology. Single contrast views show no esophageal strictures, extrinsic mass effects, or diverticula. Limited images of the stomach demonstrate normal appearance. IMPRESSION: Multiple episodes of tertiary contractions resulting in delayed and retrograde flow of ingested contrast material. Possible single episode of gastroesophageal reflux visualized. Dictated by: Aroldo Nugent M.D. on 06/29/2022 at 21:02 Approved by: Aroldo Nugent M.D. on 06/29/2022 at 21:50
== END ==
PROVIDERS: PCP Nurse Practitioner Family; Referring Provider Internal Medicine; Visit Provider Internal Medicine
DX: R06.00 Dyspnea, unspecified (principal); K21.00 Gastro-esophageal reflux disease with esophagitis, without bleeding
CPT/HCPCS: 74220

== ENCOUNTER → 2022-07-18 07:25 | Outpatient (ROUT) | payer OTHER, MEDICAID, SELFPAY ==
[2022-04-07 21:16] VITALS: BMI 38.6
[2022-07-18 07:54] LABS: BUN Creatinine Ratio 20.2 (6-22); Blood Urea Nitrogen 25 mg/dL (7-17); Calcium 9.2 mg/dL (8.4-10.2); Carbon Dioxide 31 mmol/L (22-32); Chloride 101 mmol/L (98-107); Estimated Glomerular Filt Rate 45 mL/min (>60); Glucose 83 mg/dL (80-110); HEMOLYSIS < 15 (0-50); Potassium 3.8 mmol/L (3.4-5.1); Sodium 138 mmol/L (137-145)
== END ==
PROVIDERS: PCP Nurse Practitioner Family; Visit Provider Nurse Practitioner Family
DX: R79.89 Other specified abnormal findings of blood chemistry (principal)
CPT/HCPCS: 36415; 80048

== ENCOUNTER → 2022-09-19 07:13 | Outpatient (ROUT) | payer OTHER, MEDICAID, SELFPAY ==
[2022-04-07 21:16] VITALS: BMI 38.6
[2022-09-19 07:46] LABS: Add Manual Diff / Slide Review NO; Basophils Absolute Auto 0 /uL (0-100); Basophils Percent Auto 0.4 % (0-2); Eosinophils Absolute Auto 100 /uL (0-450); Eosinophils Percent Auto 1.7 % (2-4); Hematocrit 29.6 % (36-46); Hemoglobin 9.9 g/dL (12.0-16.0); Lymphocytes Absolute Auto 1800 /uL (1100-4500); Mean Corpuscular HGB Conc 33.4 % (30-36); Mean Corpuscular Volume 89.7 fL (80-100); Monocytes Absolute Auto 700 /uL (0-900); Monocytes Percent Auto 8.5 % (3-14); Neutrophils Absolute Auto 5100 /uL (1500-7000); Neutrophils Percent Auto 66.4 % (50-75); Platelet Count 213 X10^3/uL (150-400); Red Cell Distribution Width 15.1 % (11.6-14.8); White Blood Cell Count 7.7 X10^3/uL (4.5-11.0)
[2022-09-19 08:03] LABS: BUN Creatinine Ratio 17.6 (6-22); Blood Urea Nitrogen 22 mg/dL (7-17); Calcium 8.9 mg/dL (8.4-10.2); Carbon Dioxide 31 mmol/L (22-32); Chloride 102 mmol/L (98-107); Estimated Glomerular Filt Rate 44 mL/min (>60); Glucose 81 mg/dL (80-110); HEMOLYSIS < 15 (0-50); Potassium 3.7 mmol/L (3.4-5.1); Sodium 138 mmol/L (137-145)
[2022-09-19 08:45] LABS: Thyroid Stimulating Hormone 5.16 uIU/mL (0.47-4.68)
== END ==
PROVIDERS: PCP Nurse Practitioner Family; Visit Provider Nurse Practitioner Family
DX: D64.9 Anemia, unspecified (principal); N18.9 Chronic kidney disease, unspecified; E03.9 Hypothyroidism, unspecified
CPT/HCPCS: 36415; 80048; 84443; 85025

== ENCOUNTER → 2022-10-10 07:28 | Outpatient (ROUT) | payer OTHER, MEDICAID, SELFPAY ==
[2022-04-07 21:16] VITALS: BMI 38.6
[2022-10-10 07:52] LABS: BUN Creatinine Ratio 18.3 (6-22); Blood Urea Nitrogen 24 mg/dL (7-17); Calcium 8.8 mg/dL (8.4-10.2); Carbon Dioxide 32 mmol/L (22-32); Chloride 102 mmol/L (98-107); Estimated Glomerular Filt Rate 42 mL/min (>60); Glucose 91 mg/dL (80-110); HEMOLYSIS < 15 (0-50); Sodium 138 mmol/L (137-145)
== END ==
PROVIDERS: PCP Nurse Practitioner Family; Visit Provider Nurse Practitioner Family
DX: N18.9 Chronic kidney disease, unspecified (principal)
CPT/HCPCS: 36415; 80048

== ENCOUNTER → 2023-01-16 08:00 | Outpatient (ROUT) | payer OTHER, MEDICAID, SELFPAY ==
[2022-04-07 21:16] VITALS: BMI 38.6
[2023-01-16 08:48] LABS: BUN Creatinine Ratio 19.5 (6-22); Blood Urea Nitrogen 25 mg/dL (7-17); Calcium 9.1 mg/dL (8.4-10.2); Carbon Dioxide 29 mmol/L (22-32); Chloride 102 mmol/L (98-107); Estimated Glomerular Filt Rate 43 mL/min (>60); Glucose 85 mg/dL (80-110); HEMOLYSIS < 15 (0-50); Sodium 138 mmol/L (137-145)
== END ==
PROVIDERS: PCP Nurse Practitioner Family; Visit Provider Nurse Practitioner Family
DX: N18.2 Chronic kidney disease, stage 2 (mild) (principal)
CPT/HCPCS: 36415; 80048

== ENCOUNTER → 2023-04-02 11:54 | Outpatient (CLI) | payer OTHER, MEDICAID, SELFPAY ==
[2022-04-07 21:16] VITALS: BMI 38.6
== END ==
PROVIDERS: PCP Nurse Practitioner Family; Referring Provider Nurse Practitioner Gerontology; Visit Provider Nurse Practitioner Gerontology
DX: R94.31 Abnormal electrocardiogram [ECG] [EKG] (principal); R07.9 Chest pain, unspecified; I50.9 Heart failure, unspecified
CPT/HCPCS: 93005

== ENCOUNTER → 2023-04-10 06:42 | Outpatient (ROUT) | payer OTHER, MEDICAID, SELFPAY ==
[2022-04-07 21:16] VITALS: BMI 38.6
[2023-04-10 07:01] LABS: Add Manual Diff / Slide Review NO; Basophils Absolute Auto 0 /uL (0-100); Basophils Percent Auto 0.5 % (0-2); Eosinophils Absolute Auto 100 /uL (0-450); Eosinophils Percent Auto 1.5 % (2-4); Hematocrit 28.4 % (36-46); Hemoglobin 9.4 g/dL (12.0-16.0); Lymphocytes Absolute Auto 1800 /uL (1100-4500); Lymphocytes Percent Auto 22.7 % (25-40); Mean Corpuscular HGB Conc 33.2 % (30-36); Mean Corpuscular Hemoglobin 29.9 PG (26-34); Monocytes Absolute Auto 800 /uL (0-900); Monocytes Percent Auto 10.5 % (3-14); Neutrophils Absolute Auto 5000 /uL (1500-7000); Neutrophils Percent Auto 64.8 % (50-75); Platelet Count 230 X10^3/uL (150-400); Red Blood Cell Count 3.16 X10^6/uL (4.0-5.2); White Blood Cell Count 7.8 X10^3/uL (4.5-11.0)
[2023-04-10 07:07] LABS: Alanine Aminotransferase 14 IU/L (<35); Albumin 3.5 g/dL (3.5-5.0); Albumin Globulin Ratio 1.1 (1.0-2.8); Alkaline Phosphatase 118 U/L (38-126); Aspartate Aminotransferase 17 IU/L (14-36); BUN Creatinine Ratio 17.9 (6-22); Bilirubin Total 0.3 mg/dL (0.2-1.3); Blood Urea Nitrogen 27 mg/dL (7-17); Carbon Dioxide 29 mmol/L (22-32); Chloride 106 mmol/L (98-107); Estimated Glomerular Filt Rate 35 mL/min (>60); Globulin 3.1 g/dL (1.7-4.1); Glucose 91 mg/dL (80-110); HEMOLYSIS < 15 (0-50); Potassium 3.8 mmol/L (3.4-5.1); Sodium 139 mmol/L (137-145); Total Protein 6.6 g/dL (6.3-8.2)
== END ==
PROVIDERS: PCP Nurse Practitioner Family; Visit Provider Nurse Practitioner Gerontology
DX: N18.9 Chronic kidney disease, unspecified (principal)
CPT/HCPCS: 36415; 80053; 85025

== ENCOUNTER → 2023-05-08 06:14 | Outpatient (ROUT) | payer OTHER, MEDICAID, SELFPAY ==
[2022-04-07 21:16] VITALS: BMI 38.6
[2023-05-08 07:27] LABS: Add Manual Diff / Slide Review NO; Basophils Absolute Auto 200 /uL (0-100); Basophils Percent Auto 2.1 % (0-2); Eosinophils Absolute Auto 100 /uL (0-450); Eosinophils Percent Auto 1.4 % (2-4); Hematocrit 30.1 % (36-46); Hemoglobin 10.1 g/dL (12.0-16.0); Lymphocytes Absolute Auto 1400 /uL (1100-4500); Lymphocytes Percent Auto 15.4 % (25-40); Mean Corpuscular HGB Conc 33.5 % (30-36); Mean Corpuscular Hemoglobin 29.9 PG (26-34); Mean Corpuscular Volume 89.1 fL (80-100); Monocytes Absolute Auto 500 /uL (0-900); Monocytes Percent Auto 5.4 % (3-14); Neutrophils Absolute Auto 6800 /uL (1500-7000); Neutrophils Percent Auto 75.7 % (50-75); Platelet Count 240 X10^3/uL (150-400); Red Blood Cell Count 3.38 X10^6/uL (4.0-5.2); Red Cell Distribution Width 14.7 % (11.6-14.8); White Blood Cell Count 8.9 X10^3/uL (4.5-11.0)
[2023-05-08 07:30] LABS: HEMOLYSIS < 15 (0-50); Iron 45 ug/dL (37-170)
[2023-05-08 07:31] LABS: Alanine Aminotransferase 15 IU/L (<35); Albumin 3.7 g/dL (3.5-5.0); Albumin Globulin Ratio 1.2 (1.0-2.8); Alkaline Phosphatase 128 U/L (38-126); Aspartate Aminotransferase 16 IU/L (14-36); BUN Creatinine Ratio 23.5 (6-22); Bilirubin Total 0.3 mg/dL (0.2-1.3); Blood Urea Nitrogen 39 mg/dL (7-17); Carbon Dioxide 28 mmol/L (22-32); Chloride 105 mmol/L (98-107); Estimated Glomerular Filt Rate 31 mL/min (>60); Gamma Glutamyl Transpeptidase 38 U/L (12-43); Glucose 97 mg/dL (80-110); HEMOLYSIS < 15 (0-50); Lactate Dehydrogenase 161 U/L (120-246); Potassium 3.9 mmol/L (3.4-5.1); Sodium 138 mmol/L (137-145); Total Protein 6.7 g/dL (6.3-8.2)
[2023-05-08 07:41] LABS: Percent Iron Saturation 18 % (15-50); Total Iron Binding Capacity 256 ug/dL (265-497); Transferrin 211 mg/dL (206-381)
[2023-05-08 07:56] LABS: Erythrocyte Sedimentation Rate 78 MM/HR (0-20)
[2023-05-08 08:06] LABS: Ferritin 39 ng/mL (11-264)
[2023-05-08 08:38] LABS: Folate 13.2 ng/mL (2.76-20.0); Vitamin B12 408 pg/mL (239-931)
[2023-05-09 05:43] LABS: Complement C3 169 mg/dL (82-167)
[2023-05-10 14:36] LABS: Alpha-1-Globulin 0.2 g/dL (0.0-0.4); Alpha-2-Globulin 0.9 g/dL (0.4-1.0); Gamma Globulin 1.2 g/dL (0.4-1.8); Globulin Total 3.3 g/dL (2.2-3.9); Immunoglobulin A, Serum 147 mg/dL (64-422); Immunoglobulin G,Serum 1024 mg/dL (586-1602); Immunoglobulin M, Serum 162 mg/dL (26-217); Protein, Total 6.3 g/dL (6.0-8.5)
[2023-05-10 15:18] LABS: CCP Antibodies IgG/IgA 5 units (0-19)
[2023-05-11 03:18] LABS: Complement Total CH50 > 60 U/mL (>41)
== END ==
PROVIDERS: PCP Nurse Practitioner Family; Visit Provider Internal Medicine Hematology & Oncology
DX: D68.9 Coagulation defect, unspecified (principal); R79.1 Abnormal coagulation profile; E03.8 Other specified hypothyroidism; I10 Essential (primary) hypertension; G47.33 Obstructive sleep apnea (adult) (pediatric); N18.9 Chronic kidney disease, unspecified; D63.1 Anemia in chronic kidney disease
CPT/HCPCS: 36415; 80053; 82607; 82668; 82728; 82746; 82784; 82977; 83540; 83550; 83615; 84155; 84165; 85025; 85610; 85611; 85651; 86160; 86162; 86200; 86334

== ENCOUNTER → 2023-05-10 14:48 | Outpatient (CLI) | payer OTHER, MEDICAID, SELFPAY ==
[2022-04-07 21:16] VITALS: BMI 38.6
--- NOTE | 2023-05-10 14:49 | DI.ECHO.S_ITS ---
[facility] +---------+ : : [address] : [place] : : : : [id number] : : : : Phone: [phone]+ Echocardiogram Report + + :Name: FRANCISCO KRISHNAN Study Date: 05/10/2023 Height: 63.5 in: :[facility] ReadingLocation: Weight: 245 lb : : Gender: Female BSA: 2.1 m2 : :: 1945 Age: 78 yrs BP: 156/80 mmHg: :Reason For Study: CHEST PAIN : :Ordering Physician: ALEK, : :ASHWINI Performed By: Asha Contreras : :Referring: ASHWINI GASTON : + + Interpretation Summary The left ventricle is normal in size and wall thickness. Left ventricular systolic function appears normal without focal wall motion abnormalities. The ejection fraction is estimated to be 60-65%. Diastolic parameters suggest a relaxation abnormality of the left ventricle, consistent with probable normal filling pressures. The right ventricular systolic pressure is estimated to be at least 41 mmHg based on an estimated right atrial pressure of 8 mm Hg. The left atrial size is normal. There is no significant valvular heart disease. The aortic arch is at the upper limits of normal in size. The ascending aorta is at the upper limits of normal in size. Procedure: A two-dimensional transthoracic echocardiogram with color flow and Doppler was performed. The study quality was technically difficult. Comparison is made with the echocardiogram of 04/09/2022. The heart rate ranged between 70-92 bpm during the study. Left Ventricle: The left ventricle is normal in size and wall thickness. Left ventricular systolic function appears normal without focal wall motion abnormalities. The ejection fraction is estimated to be 60-65%. Diastolic parameters suggest a relaxation abnormality of the left ventricle, consistent with probable normal filling pressures. Right Ventricle: The right ventricle is normal in size and function. Atria: The left atrial size is normal. Right atrial size is normal. There is no Doppler evidence for an interatrial shunt. Mitral Valve: The mitral valve leaflets appear mildly thickened, but open well. There is trace mitral regurgitation. Aortic Valve: The aortic valve is not well visualized. There is no aortic valve stenosis. No aortic regurgitation is present. Tricuspid Valve: The tricuspid valve is not well visualized, but is grossly normal. There is trace tricuspid regurgitation. The right ventricular systolic pressure is estimated to be at least 41 mmHg based on an estimated right atrial pressure of 8 mm Hg. Pulmonic Valve: The pulmonic valve is not well visualized. There is no pulmonic valvular regurgitation. There is no significant valvular heart disease. Great Vessels: The aortic root is normal size. The aortic arch is at the upper limits of normal in size. The ascending aorta is at the upper limits of normal in size. The IVC is dilated (diameter is greater than 2.1 cm) yet it collapses greater than 50% with a sniff. This suggests a right atrial pressure of 8 mm Hg. Pericardium/ Pleura There is no pericardial effusion. There is no pleural effusion. MMode/2D Measurements & Calculations LVIDd: 4.6 cm LVOT diam: 2.0 cm LVIDs: 3.0 cm Ao root diam: 3.3 cm FS: 34.9 % asc Aorta Diam: 3.5 cm IVSd: 0.77 cm Ao Arch Diam (Prox Trans): 3.3 cm LVPWd: 0.72 cm LV tellez. diameter/BSA (cm/m^2): 2.2 LV sys. diameter/BSA (cm/m^2): 1.4 LA A2 area: 18.0 cm2 RA long axis: 4.8 cm LA A4 area: 17.1 cm2 RA area: 15.3 cm2 LA length (vol): 5.5 cm RA vol: 41.4 ml LA vol: 47.8 ml RA : 19.5 ml/m2 LA vol index: 22.5 ml/m2 IVC diam: 2.2 cm RVD1 (basal): 3.6 cm RVD2 (mid): 3.4 cm TAPSE: 2.4 cm Doppler Measurements & Calculations Ao V2 max: 170.7 cm/sec LVOT Max Adiel: 90.6 cm/sec Ao V2 mean: 134.3 cm/sec LV V1 max P.3 mmHg Ao max P.7 mmHg LV V1 VTI: 21.3 cm Ao mean P.6 mmHg FRANSISCO(I,D): 1.7 cm2 Ao V2 VTI: 37.3 cm FRANSISCO(V,D): 1.6 cm2 sev ratio: 0.57 FRANSISCO indexed to BSA (cm^2/m^2): 0.81 MV E max adiel: 81.2 cm/sec TR max adiel: 285.4 cm/sec MV A max adiel: 91.2 cm/sec TR max P.6 mmHg MV E/A: 0.89 PA V2 max: 122.7 cm/sec Med Peak E' Adiel: 6.6 cm/sec PA V2 mean: 86.3 cm/sec E/E' med: 12.3 PA mean P.3 mmHg Lat Peak E' Adiel: 11.8 cm/sec PA pr(Accel): 46.5 mmHg E/E' lat: 6.9 E/e' average: 9.6 MV dec time: 0.22 sec SV(LVOT): 64.3 ml Reading Physician:09:56 PM
== END ==
PROVIDERS: PCP Nurse Practitioner Family; Referring Provider Nurse Practitioner Gerontology; Visit Provider Nurse Practitioner Gerontology
DX: R07.9 Chest pain, unspecified (principal); I50.9 Heart failure, unspecified
CPT/HCPCS: 93306

== ENCOUNTER 2023-09-27 06:08 | Emergency (ER) | payer OTHER, MEDICAID, SELFPAY ==
[2022-04-07 21:16] VITALS: BMI 38.6
[2023-09-27] VITALS (9 sets, daily range): BP systolic 104–129; BP diastolic 53–61; PULSE 59–63; RESP 18; TEMP 36.3; O2SAT 91–95; BMI 43.4
--- NOTE | 2023-09-27 06:18 | ED_ITS ---
HPI - General Adult General Chief complaint: Extremity Problem,Nontraumatic Stated complaint: bilat knee pain Time Seen by Provider: 09/27/23 06:14 History of Present Illness HPI narrative: 78-year-old female presents by EMS from [facility] for bilateral knee pain that is atraumatic in nature. Patient has chronic knee pain and sees orthopedic surgery. Several weeks ago patient received a steroid injection in her right knee, which has improved her chronic pain. Patient states that last night she took her normal Lyrica as well as Tylenol but the pain in her knees kept her up all night long, so she decided to come in for evaluation. Related Data Home Medications Medication Instructions Recorded Confirmed amitriptyline 50 mg tablet 50 mg PO BEDTIME ##0 12/19/16 04/07/22 baclofen 10 mg tablet 10 mg PO BEDTIME muscle spasm ##0 12/19/16 04/07/22 acetaminophen 500 mg tablet 500 mg 3XD 04/07/22 04/07/22 ascorbic acid (vitamin C) 500 mg 500 mg PO DAILY 04/07/22 04/07/22 tablet (Vitamin C) atorvastatin 40 mg tablet 40 mg PO DAILY 04/07/22 04/07/22 jzjbvojaay-fcbmclcrvulsi-whjhegar 1 - 2 tab PO TID PRN headaches 04/07/22 04/07/22 50 mg-325 mg-40 mg tablet dicyclomine 10 mg capsule 10 mg PO TID GERD 04/07/22 04/07/22 docusate sodium 100 mg capsule 200 mg PO BID Constipation 04/07/22 04/07/22 furosemide 40 mg tablet 40 mg PO DAILY 04/07/22 04/07/22 levothyroxine 75 mcg tablet 75 mcg PO DAILY 04/07/22 04/07/22 lidocaine 4 % topical patch 1 patch topical DAILY 04/07/22 04/07/22 (Lidocaine Pain Relief) melatonin 5 mg tablet 5 mg PO BEDTIME PRN Insomnia 04/07/22 04/07/22 gjsidozl-yyo-ybbtj acid 0.4 1 tab PO DAILY 04/07/22 04/07/22 mg-lycopene 300 mcg-lutein 250 mcg tablet (CertaVite Senior) pantoprazole 40 mg tablet,delayed 40 mg PO DAILY GERD 04/07/22 04/07/22 release polyethylene glycol 3350 17 17 g PO DAILY constipation 04/07/22 04/07/22 gram/dose oral powder (Gavilax) potassium chloride 20 mEq 20 meq PO DAILY 04/07/22 04/07/22 tablet,extended release(part/cryst) pregabalin 100 mg capsule 100 mg PO TID pain management 04/07/22 04/07/22 zonisamide 100 mg capsule 100 mg PO DAILY 04/07/22 04/07/22 Previous Rx's Medication Instructions Recorded azithromycin 250 mg tablet See Rx Instructions PO .COMPLEX #6 05/15/22 (Zithromax Z-Moses) tabs diclofenac sodium 1 % topical gel 4 g topical QID #100 grams 09/27/23 (Arthritis Pain (diclofenac)) tramadol 50 mg tablet 50 mg PO BEDTIME #7 tabs 09/27/23 Allergies Allergy/AdvReac Type Severity Reaction Status Date / Time Penicillins [PENICILLINS] Allergy Mild Unverified 06/19/17 12:48 prednisone [PREDNISONE] Allergy Mild Unverified 06/19/17 12:48 Patient History Medical History CPAP (continuous positive airway pressure) dependence Primary hypertension Osteoarthritis Restless leg syndrome Sleep apnea Insomnia Disorder of peripheral nervous system Cervical spondylosis with myelopathy Fibromyalgia Corneal dystrophy Cataract Chronic rhinitis Carpal tunnel syndrome, bilateral Cluster headache syndrome Sjogren syndrome with keratoconjunctivitis Depression 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 stenosis of lumbar region with neurogenic claudication Cerebral palsy Chronic low back pain GERD (gastroesophageal reflux disease) Chronic migraine without aura, intractable, without status migrainosus Obesity (BMI 30-39.9) Hypothyroidism (acquired) Hyperlipidemia Essential hypertension Surgical History History of hysterectomy History of carpal tunnel surgery History of fusion of cervical spine Family History Mother Diabetes mellitus Father Emphysema lung Social History household members: other Smoking Status: Never smoker alcohol intake: never Smoking Status: Never smoker Substance Use Type: does not use Exam Initial Vital Signs Initial Vital Signs: Vital Signs Temperature 97.4 F L 09/27/23 06:15 Pulse Rate 62 09/27/23 06:15 Respiratory Rate 18 09/27/23 06:15 Blood Pressure 128/61 09/27/23 06:15 Pulse Oximetry 95 09/27/23 06:15 Oxygen Delivery Method Room Air 09/27/23 06:15 Const: Awake, alert, frail MSK: No deformity, no erythema, no swelling. Tenderness to deep palpation medial and lateral knee compartments bilaterally Skin: Warm, Dry, intact, no rashes Neuro: AO x3, CN II-XII grossly intact, moves all extremities Course Orders Ordered: Discontinued Medications Hydrocodone Bitart/Acetaminophen (Hydrocodone/Acet 5/325 Tablet) 1 tab PO NOW ONE Stop: 09/27/23 06:18 Last Admin: 09/27/23 06:26 Dose: 1 tab Documented By: NO Vital Signs Vital signs: Vital Signs - 8 hr 09/27/23 06:15 Temperature 97.4 F L Pulse Rate 62 Respiratory Rate 18 Blood Pressure 128/61 Pulse Oximetry 95 Oxygen Delivery Method Room Air Medical Decision Making Imaging Data Extremity x-ray #1: Radiologist's Impression: PROCEDURE: XR KNEE LT 3V INDICATIONS: BILAT ATRAUMATIC KNEE PAIN TECHNIQUE: 3 views of the knee were acquired. COMPARISON: None. FINDINGS: Bones: No fractures or dislocations. Moderate tricompartmental osteoarthritis is seen most notably involving patellofemoral compartment. No significant patellar subluxation. No suspicious bony lesions. Soft tissues: Small suprapatellar joint effusion. Round calcifications are seen projecting over posterior aspect of femoral tibial compartments concerning for intra-articular loose bodies. IMPRESSION: Moderate tricompartmental osteoarthritis most notably in patellofemoral compartment. No acute fracture or dislocation. Small joint effusion and possible posterior patellofemoral compartment loose bodies. No significant discrepancies from preliminary reading. Dictated by: Tavares Cyr M.D. on 09/27/2023 at 8:24 Approved by: Tavares Cyr M.D. on 09/27/2023 at 8:26 Extremity x-ray #2: Radiologist's Impression: PROCEDURE: XR KNEE RT 3V INDICATIONS: BILAT ATRAUMATIC KNEE PAIN TECHNIQUE: 3 views of the knee were acquired. COMPARISON: None. FINDINGS: Bones: Moderate to severe tricompartmental osteoarthritis in right knee is seen most notably in patellofemoral compartment. Lateral subluxation of patella is seen. No acute fracture or dislocation. No suspicious bony lesions. Soft tissues: Small to moderate suprapatellar joint effusion. No suspicious soft tissue calcifications. IMPRESSION: Moderate to severe tricompartmental osteoarthritis most notably in patellofemoral compartment. No acute fracture or dislocation. Lateral subluxation of patella. Small to moderate suprapatellar joint effusion. No significant discrepancies from preliminary reading. Dictated by: Tavares Cyr M.D. on 09/27/2023 at 8:26 Approved by: Tavares Cyr M.D. on 09/27/2023 at 8:27 [facility] Narrative Additional Information: Atraumatic bilateral knee pain, left greater than right. Exam is unremarkable. Patient has generalized tenderness in the medial and lateral compartments without deformity, abnormal swelling, overlying erythema or warmth. X-ray show arthritic changes without acute findings. Patient given pain medication in the emergency department. Subsequently instructed to continue to take Tylenol as needed for pain and to apply Voltaren gel. If these are still unable to completely control her pain a nighttime dose of pain medication provided to patient to help her sleep at night. Discharge Plan Departure Patient Disposition: Home Clinical Impression: Bilateral knee pain Qualifiers: Chronicity: acute Qualified Code(s): M25.561 - Pain in right knee Instructions: DI for Knee Pain Activity Restrictions/Additional Instructions: Your x-rays today did not show any significant abnormalities. You have bilateral degenerative changes. Continue to take Tylenol for pain. I also recommend using Voltaren gel topically to your knees. You may use this up to 4 times daily for pain. If you continued to have pain that keeps you up at night a very short amount of pain medication has been sent to the pharmacy. Use this only at bedtime if you are unable to sleep despite Tylenol and Voltaren. This medication may cause drowsiness and may put you at increased risk of falling. Prescriptions: New diclofenac sodium [Arthritis Pain (diclofenac)] 1 % gel 4 g topical QID Qty: 100 0RF Rx Instructions: apply to single knee, ankle, foot; for foot includes sole/toes/top of foot tramadol 50 mg tablet 50 mg PO BEDTIME Qty: 7 0RF No Action baclofen 10 MG tablet 10 mg PO BEDTIME Qty: 0 amitriptyline 50 MG tablet 50 mg PO BEDTIME Qty: 0 acetaminophen 500 mg tablet 500 mg 3XD atorvastatin 40 mg tablet 40 mg PO DAILY akbzonmcuv-jypksaxebfrnw-dofw 1 EACH tablet 1 - 2 tab PO TID PRN (Reason: headaches) Rx Instructions: Maximum 10 tablets per month CertaVite Senior 0.4 mg-300 mcg- 250 mcg tablet 1 tab PO DAILY dicyclomine 10 mg capsule 10 mg PO TID docusate sodium 100 mg capsule 200 mg PO BID furosemide 40 mg tablet 40 mg PO DAILY levothyroxine 75 mcg tablet 75 mcg PO DAILY lidocaine [Lidocaine Pain Relief] 4 % adhesive patch,medicated 1 patch TOPICAL DAILY Rx Instructions: On for twelve hours and then remove for twelve hours melatonin 5 mg Tablet 5 mg PO BEDTIME PRN (Reason: Insomnia) pantoprazole 40 mg tablet,delayed release (DR/EC) 40 mg PO DAILY polyethylene glycol 3350 [Gavilax] 17 gram/dose powder 17 g PO DAILY potassium chloride 20 mEq tablet,ER particles/crystals 20 meq PO DAILY pregabalin 100 mg capsule 100 mg PO TID zonisamide 100 mg capsule 100 mg PO DAILY ascorbic acid (vitamin C) [Vitamin C] 500 mg tablet 500 mg PO DAILY azithromycin [Zithromax Z-Moses] 250 mg tablet See Rx Instructions .ROUTE .COMPLEX Qty: 6 0RF Rx Instructions: For 250 mg dose pack: take 500 mg today (day 1), then 250 mg for 4 days (days 2-5) Referrals: Brenda Gonzalez ARNP [Primary Care Provider] - Stand Alone Forms: Patient Portal/API
[2023-09-27] MEDS: HYDROCODONE/ACET 5/325 TABLET 1 TAB PO (06:26)
--- NOTE | 2023-09-27 10:29 | PC.NURSE ---
Waiting for [facility] staff to come pick pack worker patient for the last 3 hours after multiple phone calls and requests.
== END 2023-09-27 10:50 | disposition home or self-care (01) ==
PROVIDERS: Emergency Provider Emergency Medicine; PCP Nurse Practitioner Family
DX: Z79.899 Other long term (current) drug therapy (principal); M25.562 Pain in left knee; M25.561 Pain in right knee
CPT/HCPCS: 73562; 99283

== ENCOUNTER → 2024-05-18 12:39 | Outpatient (CLI) | payer OTHER, MEDICAID, SELFPAY ==
[2022-04-07 21:16] VITALS: BMI 38.6
[2024-05-18 13:37] LABS: Hematocrit 34.9 % (36-46); Hemoglobin 11.7 g/dL (12.0-16.0)
[2024-05-18 13:51] LABS: HEMOLYSIS < 15 (0-50); Iron 49 ug/dL (37-170)
[2024-05-18 13:54] LABS: Albumin 4.4 g/dL (3.5-5.0); BUN Creatinine Ratio 14.5 (6-22); Blood Urea Nitrogen 25 mg/dL (7-17); Calcium 9.5 mg/dL (8.4-10.2); Carbon Dioxide 29 mmol/L (22-32); Chloride 102 mmol/L (98-107); Estimated Glomerular Filt Rate 30 mL/min (>60); Glucose 94 mg/dL (80-110); HEMOLYSIS < 15 (0-50); Magnesium 2.4 mg/dL (1.6-2.3); Phosphorous 3.7 mg/dL (2.8-4.1); Potassium 4.5 mmol/L (3.4-5.1); Sodium 141 mmol/L (137-145); Uric Acid 6.1 mg/dL (2.5-6.2)
[2024-05-18 14:02] LABS: Percent Iron Saturation 24 % (15-50); Total Iron Binding Capacity 206 ug/dL (265-497); Transferrin 191 mg/dL (206-381)
[2024-05-18 14:27] LABS: Ferritin 63 ng/mL (11-264)
[2024-05-18 14:46] LABS: Vitamin D 25 Hydroxy (D3) 35.7 ng/mL (30.0-100.0)
[2024-05-18 17:36] LABS: Appearance Urine UA CLEAR; Bilirubin Urine UA NEGATIVE (NEGATIVE); Color Urine UA YELLOW; Glucose Urine UA NEGATIVE (Negative); Ketones Urine UA NEGATIVE (NEGATIVE); Leukocyte Esterase Urine UA NEGATIVE (NEGATIVE); Nitrite Urine UA NEGATIVE (Negative); Occult Blood Urine UA NEGATIVE (Negative); Protein Urine UA NEGATIVE (Negative); Urobilinogen Urine UA 0.2 E.U./dL (0.2)
[2024-05-18 17:41] LABS: Creatinine Urine Random 104.53 mg/dL; Protein (Total) Urine Random 8 mg/dL (0-12); Protein Creatinine Ratio Urine 0.07 GRAM/24H
[2024-05-18 17:43] LABS: Bacteria Urine Few (2-10); Culture Indicated Urine Cult Not Indicated; RBC Urine 0-1/HPF (0-5/HPF); Squamous Epithelial Cell Urine 0-1 /HPF (0-5/HPF); Urine Volume 10mL (spun); WBC Urine 0-1/HPF (0-5/HPF)
[2024-05-18 17:48] LABS: Microalbumin Urine Random < 0.6 mg/dL (0-1.6)
== END ==
LOC: LAB 12:49
PROVIDERS: PCP Nurse Practitioner Family; Referring Provider Internal Medicine Nephrology; Visit Provider Internal Medicine Nephrology
DX: I10 Essential (primary) hypertension (principal); R79.89 Other specified abnormal findings of blood chemistry; N18.32 Chronic kidney disease, stage 3b; G43.C0 Periodic headache syndromes in child or adult, not intractable; M47.12 Other spondylosis with myelopathy, cervical region
CPT/HCPCS: 36415; 80069; 81001; 82043; 82306; 82570; 82728; 83540; 83550; 83735; 83970; 84156; 84550; 85014; 85018

== ENCOUNTER 2024-08-29 15:10 | Emergency (ER) | payer OTHER, MEDICAID, SELFPAY ==
[2022-04-07 21:16] VITALS: BMI 38.6
[2024-08-29 15:20] VITALS: BP 136/66; PULSE 62; RESP 19; TEMP 36.4; O2SAT 98; BMI 39.3
--- NOTE | 2024-08-29 15:31 | ED.FALL ---
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 Patient has been taking tramadol but she is having breakthrough pain at this time but is still able to walk. He denies bowel or bladder incontinence abdominal pain or urinary complaints at this time. Other than what is stated 14 point review of system is negative. Related Data Home Medications ?Medication ?Instructions ?Recorded ?Confirmed amitriptyline 50 mg tablet 50 mg PO BEDTIME ##0 12/19/16 04/07/22 baclofen 10 mg tablet 10 mg PO BEDTIME muscle spasm ##0 12/19/16 04/07/22 acetaminophen 500 mg tablet 500 mg 3XD 04/07/22 04/07/22 ascorbic acid (vitamin C) 500 mg 500 mg PO DAILY 04/07/22 04/07/22 tablet (Vitamin C) atorvastatin 40 mg tablet 40 mg PO DAILY 04/07/22 04/07/22 [id number]-rlnbwdupwgbpw-wmakrwkl 1 - 2 tab PO TID PRN headaches 04/07/22 04/07/22 50 mg-325 mg-40 mg tablet dicyclomine 10 mg capsule 10 mg PO TID GERD 04/07/22 04/07/22 docusate sodium 100 mg capsule 200 mg PO BID Constipation 04/07/22 04/07/22 furosemide 40 mg tablet 40 mg PO DAILY 04/07/22 04/07/22 levothyroxine 75 mcg tablet 75 mcg PO DAILY 04/07/22 04/07/22 lidocaine 4 % topical patch 1 patch topical DAILY 04/07/22 04/07/22 (Lidocaine Pain Relief) melatonin 5 mg tablet 5 mg PO BEDTIME PRN Insomnia 04/07/22 04/07/22 fbmfpdyz-pii-rgbok acid 0.4 1 tab PO DAILY 04/07/22 04/07/22 mg-lycopene 300 mcg-lutein 250 mcg tablet (CertaVite Senior) pantoprazole 40 mg tablet,delayed 40 mg PO DAILY GERD 04/07/22 04/07/22 release polyethylene glycol 3350 17 17 g PO DAILY constipation 04/07/22 04/07/22 gram/dose oral powder (Gavilax) potassium chloride 20 mEq 20 meq PO DAILY 04/07/22 04/07/22 tablet,extended release(part/cryst) pregabalin 100 mg capsule 100 mg PO TID pain management 04/07/22 04/07/22 zonisamide 100 mg capsule 100 mg PO DAILY 04/07/22 04/07/22 Previous Rx's ?Medication ?Instructions ?Recorded azithromycin 250 mg tablet See Rx Instructions PO .COMPLEX #6 05/15/22 (Zithromax Z-Moses) tabs diclofenac sodium 1 % topical gel 4 g topical QID #100 grams 09/27/23 (Arthritis Pain (diclofenac)) tramadol 50 mg tablet 50 mg PO BEDTIME #7 tabs 09/27/23 Allergies Allergy/AdvReac Type Severity Reaction Status Date / Time Penicillins (PENICILLINS) Allergy Mild Verified 08/29/24 15:52 prednisone (PREDNISONE) Allergy Mild Verified 08/29/24 15:52 Review of Systems Review of Systems ROS Unobtainable: All systems reviewed & are unremarkable except as noted in HPI and below Patient History Medical History CPAP (continuous positive airway pressure) dependence Primary hypertension Osteoarthritis Restless leg syndrome Sleep apnea Insomnia Disorder of peripheral nervous system Cervical spondylosis with myelopathy Fibromyalgia Corneal dystrophy Cataract Chronic rhinitis Carpal tunnel syndrome, bilateral Cluster headache syndrome Sjogren syndrome with keratoconjunctivitis Depression 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 stenosis of lumbar region with neurogenic claudication Cerebral palsy Chronic low back pain GERD (gastroesophageal reflux disease) Chronic migraine without aura, intractable, without status migrainosus Obesity (BMI 30-39.9) Hypothyroidism (acquired) Hyperlipidemia Essential hypertension Surgical History History of hysterectomy History of carpal tunnel surgery History of fusion of cervical spine Family History Mother Diabetes mellitus Father Emphysema lung Social History household members: other Smoking Status: Never smoker alcohol intake: never Smoking Status: Never smoker Exam Narrative Exam Narrative: GENERAL: [79] year old patient appears stated age. Well-developed patient, in mild distress. HEAD: Atraumatic. Normocephalic. EYES: Pupils equal round and reactive. Extraocular motions intact. No scleral icterus. No injection or drainage. ENT: Nose without bleeding, purulent drainage. Throat without erythema, tonsillar hypertrophy or exudate. Airway patent. NECK: Trachea midline. Non tender CARDIOVASCULAR: Regular rate and rhythm without murmurs, gallops, or rubs. RESPIRATORY: Clear to auscultation. Breath sounds equal bilaterally. No wheezes, rales, or rhonchi. GASTROINTESTINAL: Abdomen soft, non-tender, nondistended. EXTREMITIES: No edema or joint tenderness. BACK:TTP L5-S1 midline TTP without deformity or crepitance. No flank tenderness. NEURO: AOx3. SKIN: No rash or erythema of visible areas Initial Vital Signs Initial Vital Signs: Vital Signs Temperature 97.6 F 08/29/24 15:20 Pulse Rate 62 08/29/24 15:20 Respiratory Rate 19 08/29/24 15:20 Blood Pressure 136/66 08/29/24 15:20 Pulse Oximetry 98 08/29/24 15:20 Oxygen Delivery Method Room Air 08/29/24 15:20 Course Orders Ordered: ED Orders 08/29/24 15:37 CT lumbar spine wo con Stat CT pelvis wo con Stat Discontinued Medications Hydrocodone Bitart/Acetaminophen (Hydrocodone/Acet 5/325 Tablet) 1 tab PO NOW ONE Stop: 08/29/24 15:38 Last Admin: 08/29/24 15:52 Dose: 1 tab Documented By: RB Vital Signs Vital signs: Vital Signs - 8 hr 08/29/24 15:20 Temperature 97.6 F Pulse Rate 62 Respiratory Rate 19 Blood Pressure 136/66 Pulse Oximetry 98 Oxygen Delivery Method Room Air MDM - Fall Imaging Data CT scan - abdomen/pelvis: Radiologist's Impression: [address] [address] [address] Scan Report Signed Patient: Fallon Scott MR#: [id number] : 1945 Acct:[id number] Age/Sex: 79 / F Date of Service: 08/29/24 Loc: ED Accession Number: [id number] Procedure: CT pelvis wo con Ordering Provider: Philipp Amin D.O. PROCEDURE: CT PEL WO CON INDICATIONS: trauma TECHNIQUE: Noncontrast 3 mm axial sections acquired through the bony pelvis, with coronal and sagittal reformatting. COMPARISON: None. FINDINGS: Image quality: Excellent. Bones: There is no fracture or dislocation. There are severe degenerative changes of the left femoral acetabular joint with prominent osteophytosis and subchondral sclerosis and questionable ankylosis of the joint superiorly. There are moderate degenerative changes of the right hip consisting predominantly of mild joint space narrowing and moderate subchondral cystic degeneration and sclerosis. Mild osteophytosis is present on the right as well. Mineralization is normal. Alignment is anatomic. Soft tissues: Visible portions of the pelvic organs show no acute abnormality. There is mild edema within the subcutaneous hips. Muscle bellies demonstrate mild fatty atrophy. IMPRESSION: Bilateral hip osteoarthritis, moderate on the right and very severe on the left, without acute abnormality. Extremity x-ray #1: Radiologist's Impression: [place] [address] CT Scan Report Signed Patient: Fallon Scott MR#: [id number] : 1945 Acct:[id number] Age/Sex: 79 / F Date of Service: 08/29/24 Loc: ED Accession Number: [id number] Procedure: CT lumbar spine wo con Ordering Provider: Philipp Amin D.O. PROCEDURE: CT LUMBAR SPINE WO CON INDICATIONS: trauma TECHNIQUE: Noncontrast 3 mm thick sections acquired from the T12 level to the sacrum. Sagittal and coronal reformats were constructed. For radiation dose reduction, the following was used: automated exposure control. COMPARISON: None. FINDINGS: Image quality: Excellent. Bones: There is normal bony alignment. No acute vertebral body compression fractures. No suspicious lytic or blastic bony lesions. No pars defects. There is dextrocurvature of the lumbar spine centered at L3 with mild lateral listhesis. Vacuum artifact is seen at L2-L5 with disc space narrowing. There is also endplate sclerosis and osteophytosis at these levels. These findings are most prominent at L3-L4. There is facet associated moderate facet arthropathy throughout the lumbar spine. Soft tissues: No retroperitoneal masses or hematomas. Visualized aorta is normal in caliber. IMPRESSION: Moderate to severe spondylolisthesis without acute abnormality. MDM Narrative Medical decision making narrative: Vital signs, nurse triage note, medication list, previous ER visits, and all imaging studies reviewed. Patient given Epes here. CT pelvis showed bilateral hip osteoarthritis moderate on the right and very severe on the left without acute abnormality. CT lumbar showed moderate to severe spondylolisthesis without acute abnormality. Differential diagnosis include osteoarthritis contusion sprain fracture herniated disc spondylolisthesis spondylosis. Patient has tramadol at home for pain we will obtain a doughnut to use when she is sitting to help relieve pain. Discharge Plan Departure Patient Disposition: Home Clinical Impression: Fall Qualifiers: Encounter type: initial encounter Qualified Code(s): W19.XXXA - Unspecified fall, initial encounter Acute low back pain Qualifiers: Back pain laterality: midline Sciatica presence: without sciatica Qualified Code(s): M54.50 - Low back pain, unspecified Activity Restrictions/Additional Instructions: Return with new or worsening symptoms. Take your tramadol as needed for pain control. Prescriptions: No Action baclofen 10 MG tablet 10 mg PO BEDTIME Qty: 0 amitriptyline 50 MG tablet 50 mg PO BEDTIME Qty: 0 acetaminophen 500 mg tablet 500 mg 3XD atorvastatin 40 mg tablet 40 mg PO DAILY [id number]-[id number] 1 EACH tablet 1 - 2 tab PO TID PRN (Reason: headaches) Rx Instructions: Maximum 10 tablets per month CertaVite Senior 0.4 mg-300 mcg- 250 mcg tablet 1 tab PO DAILY dicyclomine 10 mg capsule 10 mg PO TID docusate sodium 100 mg capsule 200 mg PO BID furosemide 40 mg tablet 40 mg PO DAILY levothyroxine 75 mcg tablet 75 mcg PO DAILY lidocaine [Lidocaine Pain Relief] 4 % adhesive patch,medicated 1 patch TOPICAL DAILY Rx Instructions: On for twelve hours and then remove for twelve hours melatonin 5 mg Tablet 5 mg PO BEDTIME PRN (Reason: Insomnia) pantoprazole 40 mg tablet,delayed release (DR/EC) 40 mg PO DAILY polyethylene glycol 3350 [Gavilax] 17 gram/dose powder 17 g PO DAILY potassium chloride 20 mEq tablet,ER particles/crystals 20 meq PO DAILY pregabalin 100 mg capsule 100 mg PO TID zonisamide 100 mg capsule 100 mg PO DAILY ascorbic acid (vitamin C) [Vitamin C] 500 mg tablet 500 mg PO DAILY diclofenac sodium [Arthritis Pain (diclofenac)] 1 % gel 4 g topical QID Qty: 100 0RF Rx Instructions: apply to single knee, ankle, foot; for foot includes sole/toes/top of foot tramadol 50 mg tablet 50 mg PO BEDTIME Qty: 7 0RF azithromycin [Zithromax Z-Moses] 250 mg tablet See Rx Instructions .ROUTE .COMPLEX Qty: 6 0RF Rx Instructions: For 250 mg dose pack: take 500 mg today (day 1), then 250 mg for 4 days (days 2-5) Referrals: Brenda Gonzalez ARNP [Primary Care Provider, Medical] Stand Alone Forms: Patient Portal/API
--- NOTE | 2024-08-29 15:37 | DI.CT.S_ITS ---
PROCEDURE: CT PEL WO CON INDICATIONS: trauma TECHNIQUE: Noncontrast 3 mm axial sections acquired through the bony pelvis, with coronal and sagittal reformatting. COMPARISON: None. FINDINGS: Image quality: Excellent. Bones: There is no fracture or dislocation. There are severe degenerative changes of the left femoral acetabular joint with prominent osteophytosis and subchondral sclerosis and questionable ankylosis of the joint superiorly. There are moderate degenerative changes of the right hip consisting predominantly of mild joint space narrowing and moderate subchondral cystic degeneration and sclerosis. Mild osteophytosis is present on the right as well. Mineralization is normal. Alignment is anatomic. Soft tissues: Visible portions of the pelvic organs show no acute abnormality. There is mild edema within the subcutaneous hips. Muscle bellies demonstrate mild fatty atrophy. IMPRESSION: Bilateral hip osteoarthritis, moderate on the right and very severe on the left, without acute abnormality. Dictated by: Munira Child M.D. on 08/29/2024 at 15:23 Approved by: Munira Child M.D. on 08/29/2024 at 15:27
--- NOTE | 2024-08-29 15:37 | DI.CT.S_ITS ---
PROCEDURE: CT LUMBAR SPINE WO CON INDICATIONS: trauma TECHNIQUE: Noncontrast 3 mm thick sections acquired from the T12 level to the sacrum. Sagittal and coronal reformats were constructed. For radiation dose reduction, the following was used: automated exposure control. COMPARISON: None. FINDINGS: Image quality: Excellent. Bones: There is normal bony alignment. No acute vertebral body compression fractures. No suspicious lytic or blastic bony lesions. No pars defects. There is dextrocurvature of the lumbar spine centered at L3 with mild lateral listhesis. Vacuum artifact is seen at L2-L5 with disc space narrowing. There is also endplate sclerosis and osteophytosis at these levels. These findings are most prominent at L3-L4. There is facet associated moderate facet arthropathy throughout the lumbar spine. Soft tissues: No retroperitoneal masses or hematomas. Visualized aorta is normal in caliber. IMPRESSION: Moderate to severe spondylolisthesis without acute abnormality. Dictated by: Munira Child M.D. on 08/29/2024 at 15:28 Approved by: Munira Child M.D. on 08/29/2024 at 15:30
[2024-08-29] MEDS: HYDROCODONE/ACET 5/325 TABLET 1 TAB PO (15:52)
[2024-08-29 17:03] VITALS: BP 140/66; PULSE 56; O2SAT 99
== END 2024-08-29 17:03 | disposition home or self-care (01) ==
PROVIDERS: Emergency Provider Family Medicine; PCP Nurse Practitioner Family
DX: M54.50 Low back pain, unspecified (principal); M16.0 Bilateral primary osteoarthritis of hip; M43.16 Spondylolisthesis, lumbar region; W18.30XA Fall on same level, unspecified, initial encounter
CPT/HCPCS: 72131; 72192; 99283; 99284

== ENCOUNTER → 2024-09-30 08:25 | Outpatient (ROUT) | payer OTHER, MEDICAID, SELFPAY ==
[2022-04-07 21:16] VITALS: BMI 38.6
[2024-09-30 09:31] LABS: Add Manual Diff / Slide Review NO; Hematocrit 31.8 % (36-46); Hemoglobin 11.0 g/dL (12.0-16.0); Lymphocytes Absolute Auto 1800 /uL (1100-4500); Mean Corpuscular HGB Conc 34.5 % (30-36); Mean Corpuscular Hemoglobin 31.4 PG (26-34); Mean Corpuscular Volume 91.1 fL (80-100); Platelet Count 183 X10^3/uL (150-400)
[2024-09-30 09:47] LABS: INR 1.0 (0.9-1.3); Prothrombin Time 11.8 SECONDS (9.4-12.5)
[2024-09-30 09:50] LABS: PTT Partial Thromboplastin Tim 44 SECONDS (25.1-36.5)
[2024-09-30 09:57] LABS: Alanine Aminotransferase 14 IU/L (<35); Albumin 3.7 g/dL (3.5-5.0); Albumin Globulin Ratio 1.4 (1.0-2.8); Alkaline Phosphatase 110 U/L (38-126); Blood Urea Nitrogen 26 mg/dL (7-17); Calcium 9.2 mg/dL (8.4-10.2); Carbon Dioxide 28 mmol/L (22-32); Chloride 104 mmol/L (98-107); Estimated Glomerular Filt Rate 38 mL/min (>60); Globulin 2.6 g/dL (1.7-4.1); Glucose 85 mg/dL (70-99); HEMOLYSIS < 15 (0-50); Potassium 4.0 mmol/L (3.4-5.1); Sodium 139 mmol/L (137-145); Total Protein 6.3 g/dL (6.3-8.2)
== END ==
PROVIDERS: Internal Medicine Hematology & Oncology; PCP Nurse Practitioner Family
DX: R23.3 Spontaneous ecchymoses (principal); D68.9 Coagulation defect, unspecified; R79.1 Abnormal coagulation profile; E03.8 Other specified hypothyroidism; I11.0 Hypertensive heart disease with heart failure; G47.33 Obstructive sleep apnea (adult) (pediatric); N18.9 Chronic kidney disease, unspecified; D63.1 Anemia in chronic kidney disease
CPT/HCPCS: 36415; 80053; 85025; 85610; 85730

== ENCOUNTER → 2024-11-25 06:16 | Outpatient (ROUT) | payer OTHER, MEDICAID, SELFPAY ==
[2022-04-07 21:16] VITALS: BMI 38.6
[2024-11-25 08:42] LABS: Thyroid Stimulating Hormone 3.39 uIU/mL (0.47-4.68)
== END ==
PROVIDERS: PCP Nurse Practitioner Family; Visit Provider Nurse Practitioner Gerontology
DX: E03.9 Hypothyroidism, unspecified (principal); G80.9 Cerebral palsy, unspecified; E78.5 Hyperlipidemia, unspecified; F32.A Depression, unspecified; G25.81 Restless legs syndrome; G43.719 Chronic migraine without aura, intractable, without status migrainosus
CPT/HCPCS: 36415; 84443

== ENCOUNTER → 2024-12-31 06:10 | Outpatient (ROUT) | payer OTHER, MEDICAID, SELFPAY ==
[2022-04-07 21:16] VITALS: BMI 38.6
[2024-12-31 08:38] LABS: Add Manual Diff / Slide Review NO; Hematocrit 30.8 % (36-46); Hemoglobin 10.6 g/dL (12.0-16.0); Lymphocytes Absolute Auto 2000 /uL (1100-4500); Mean Corpuscular HGB Conc 34.4 % (30-36); Mean Corpuscular Hemoglobin 31.8 PG (26-34); Mean Corpuscular Volume 92.7 fL (80-100); Platelet Count 192 X10^3/uL (150-400)
[2024-12-31 08:51] LABS: Blood Urea Nitrogen 25 mg/dL (7-17); Calcium 8.9 mg/dL (8.4-10.2); Carbon Dioxide 29 mmol/L (22-32); Chloride 103 mmol/L (98-107); Estimated Glomerular Filt Rate 39 mL/min (>60); Glucose 82 mg/dL (70-99); HEMOLYSIS < 15 (0-50); Magnesium 2.2 mg/dL (1.6-2.3); Phosphorous 4.4 mg/dL (2.8-4.1); Potassium 3.8 mmol/L (3.4-5.1); Sodium 138 mmol/L (137-145); Total Protein 6.7 g/dL (6.3-8.2); Uric Acid 5.6 mg/dL (2.5-6.2)
[2024-12-31 09:07] LABS: Vitamin D 25 Hydroxy (D3) 16.8 ng/mL (30.0-100.0)
== END ==
PROVIDERS: Internal Medicine Nephrology; PCP Nurse Practitioner Family
DX: N18.32 Chronic kidney disease, stage 3b (principal)
CPT/HCPCS: 36415; 80048; 82306; 83735; 83970; 84100; 84155; 84550; 85025

== ENCOUNTER → 2025-01-05 11:30 | Outpatient (ROUT) | payer OTHER, MEDICAID, SELFPAY ==
[2022-04-07 21:16] VITALS: BMI 38.6
[2025-01-05 11:42] LABS: Appearance Urine UA CLEAR; Bilirubin Urine UA NEGATIVE (NEGATIVE); Color Urine UA YELLOW; Glucose Urine UA NEGATIVE (Negative); Ketones Urine UA NEGATIVE (NEGATIVE); Leukocyte Esterase Urine UA NEGATIVE (NEGATIVE); Nitrite Urine UA NEGATIVE (Negative); Occult Blood Urine UA NEGATIVE (Negative); Protein Urine UA NEGATIVE (Negative); Specific Gravity Urine UA <=1.005 (1.000-1.035); Urobilinogen Urine UA 0.2 E.U./dL (0.2)
[2025-01-05 11:43] LABS: pH Urine UA 6.5 (4.5-8.0)
[2025-01-05 11:53] LABS: Culture Indicated Urine Cult Not Indicated
== END ==
PROVIDERS: PCP Nurse Practitioner Family; Visit Provider Internal Medicine Nephrology
DX: N18.32 Chronic kidney disease, stage 3b (principal)
CPT/HCPCS: 81001